=== PATIENT | male | born 1985 | race Caucasian/White ===

== ENCOUNTER 2018-04-14 12:18 | Emergency (ER) | payer MEDICAID, SELFPAY ==
[2018-04-14 12:36] VITALS: BP 152/97; PULSE 82; RESP 16; TEMP 36.7; O2SAT 96
--- NOTE | 2018-04-14 14:10 | W.ED.GENAD ---
Discharge Plan Disposition Patient Disposition: HOME Condition: Fair Discharge Details Chief Complaint: EyeProblem Clinical Impression: Acute allergic conjunctivitis Primary Care Provider: Kenia Tyler ED Provider: Rosina Vidal Home Meds and New Rx's Prescriptions: Continue losartan [Cozaar] 25 MG tablet 50 mg PO DAILY RF: 0 propranolol 20 MG tablet 40 mg PO BID RF: 0 melatonin-pyridoxine HCl (B6) 1 EACH tablet 1 ea PO DIRECTED RF: 0 clobetasol-emollient 15 GM cream 15 gm Topical DIRECTED RF: 0 ammonium lactate (bulk) 1 ML solution 1 ml Miscellaneous DIRECTED RF: 0 Ketoconazole 15 GM CREAM..G. 15 gm Topical PRN RF: 0 cyclobenzaprine 10 MG tablet 10 mg PO hs prn Qty: 90 RF: 0 methadone 10 MG/5 ML solution 55 mg PO DAILY RF: 0 Discharge Instructions Instructions: Conjunctivitis (ED) Additional Instructions: Encourage hydration. Please continue eyedrops as needed for symptomatic management. Please take antihistamine such as Jami or Claritin daily to help with symptomatic relief. Please follow-up with primary care in 1 week if symptoms have not improved Referrals: Kenia Tyler [Primary Care Provider] - ([phone]) Discharge Data Discharge Date/Time-TO BE ENTERED AT DEPARTURE: 04/14/18 14:39 Medical Decision Making MDM Narrative Medical decision making narrative: Patient presents today, covered by significant other, with chief complaint of left eye irritation. Noted the eye to be itchy and erythematous since yesterday. On exam, patient is looking straight ahead I am not able to appreciate any injection. However, when he rotates and looks to the right, I am able to see some mild injection of the lateral aspect. He is tearing. I do not see any discharge. Patient reports that he has noted discharge with crusting. The itching and the appearance of the eye appear more consistent with allergic conjunctivitis rather than bacterial. I advised that antibiotics will not help with treatment for this. He has been using eyedrops to help with symptomatic management. I advised he may continue this. We also discussed the use of an antihistamine. We discussed new/worsening symptoms when to seek care urgently once again. Advised that he follow-up primary care in 1 week if symptoms are not improving. All his questions and concerns were addressed and he is in agreement with this plan Secondary to the number of patients in the emergency department at this time, there was delay in the patient receiving his discharge instructions. He left prior to paperwork was given. However, we had discussed treatment plans verbally. He was alert, appropriate and seems to have mental capacity to decide to leave. We will mail him his paperwork with instructions. HPI - General Adult General Mode of arrival: ambulatory. Date/Time Provider Initiated Documentation: 04/14/18 13:26. Limitations to Documentation: no limitations. Information obtained by: patient. HPI Narrative: Patient presents today, committed by significant other, with chief complaint of left eye irritation since yesterday. He reports that he noted to left eye to be slightly injected. States that he has had discharge from the eye which is primarily been clear. No visual changes. No pain in the eye. This has been quite itchy. She has been rubbing the eye frequently. Does not wear contacts or corrective lenses. Related Data Home Medications Medication Instructions Recorded Confirmed methadone 55 mg PO DAILY 03/17/13 04/14/18 losartan [Cozaar] 50 mg PO DAILY tab-cap 12/31/14 04/14/18 melatonin-pyridoxine HCl (B6) 1 ea PO DIRECTED 12/31/14 04/14/18 propranolol 40 mg PO BID tab-cap 12/31/14 04/14/18 Ketoconazole 15 gm TOPICAL PRN 07/30/17 04/14/18 ammonium lactate (bulk) 1 ml MISCELLANEOUS DIRECTED 07/30/17 04/14/18 clobetasol-emollient 15 gm TOPICAL DIRECTED 07/30/17 04/14/18 Previous Rx's Medication Instructions Recorded cyclobenzaprine 10 mg PO hs prn #90 tab-cap 10/05/17 Allergies Allergy/AdvReac Type Severity Reaction Status Date / Time buprenorphine HCl Allergy Intermediate vomiting Verified 04/14/18 12:39 [From Suboxone] hives diarrhea hallucination naloxone HCl [From Suboxone] Allergy Intermediate vomiting Verified 04/14/18 12:39 hives diarrhea hallucination shellfish derived Allergy Swelling/Ed Verified 04/14/18 12:39 miguel zolmitriptan [From Zomig] AdvReac Severe Severe Verified 04/14/18 12:39 headache Sulfa (Sulfonamide AdvReac Intermediate Nausea Verified 04/14/18 12:39 Antibiotics) General Stated Complaint: EyeProblem MASOOD: 4 Review of Systems Constitutional Reports as per HPI and Denies headache(s) Eyes Patient Reports as per HPI ENT Denies headache(s), Denies nasal congestion and Denies nasal discharge Respiratory Denies chest congestion and Denies cough Integumentary/Breasts Reports as per HPI Neurologic Denies headache(s) PFSH Family History Grandmother No problems noted. Other Crohn's colitis Medical History Hypertension Migraine Obesity, Class III, BMI 40-49.9 (morbid obesity) recurrent gi bleed Social History Smoking/Tobacco Use Status: Former Tobacco Use Surgical History Colonoscopy - MAC Exam Const General: cooperative, healthy appearing, comfortable, no acute distress, well developed and well groomed Nutritional Appearance: obese Orientation: alert and awake [facility] Head: normal to inspection and normocephalic Ears: hearing grossly normal bilaterally and external ears normal General nose exam: external nose normal Mouth: oral mucosae normal, oropharynx normal and moist mucous membranes Eyes General: appearance normal, both eyes and all related structures Eyelids: eyelids normal Conjunctivae: conjunctival abnormality left conjunctival injection Pupils: PERRL EOM: EOM intact bilaterally Resp Effort & Inspection: normal respiratory effort, able to speak in complete sentences and no respiratory distress Skin General skin exam: no rashes or lesions noted Neuro General: alert and awake Cranial Nerves: CN's II-XI intact bilaterally Cognition: normal cognition Speech: speech normal Gait: normal gait Psych Appearance: grossly normal and well kempt Mental Status: mental status grossly normal Speech and Movement: speech and movement normal Mood: congruent mood Affect: normal affect Course Vital Signs Temperature 36.7 C 04/14/18 12:36 Pulse 82 04/14/18 12:36 Respiratory Rate 16 04/14/18 12:36 Blood Pressure 152/97 H 04/14/18 12:36 Pulse Oximetry 96 04/14/18 12:36 Temperature 36.7 C 04/14/18 12:36 Pulse 82 04/14/18 12:36 Respiratory Rate 16 04/14/18 12:36 Blood Pressure 152/97 H 04/14/18 12:36 Pulse Oximetry 96 04/14/18 12:36
--- NOTE | 2018-04-16 09:55 | ED.GENADUL_ITS ---
Discharge Plan Disposition Patient Disposition: HOME Condition: Fair Discharge Details Chief Complaint: EyeProblem Clinical Impression: Acute allergic conjunctivitis Primary Care Provider: Kenia Tyler ED Provider: Rosina Vidal Home Meds and New Rx's Prescriptions: Continue losartan [Cozaar] 25 MG tablet 50 mg PO DAILY RF: 0 propranolol 20 MG tablet 40 mg PO BID RF: 0 melatonin-pyridoxine HCl (B6) 1 EACH tablet 1 ea PO DIRECTED RF: 0 clobetasol-emollient 15 GM cream 15 gm Topical DIRECTED RF: 0 ammonium lactate (bulk) 1 ML solution 1 ml Miscellaneous DIRECTED RF: 0 Ketoconazole 15 GM CREAM..G. 15 gm Topical PRN RF: 0 cyclobenzaprine 10 MG tablet 10 mg PO hs prn Qty: 90 RF: 0 methadone 10 MG/5 ML solution 55 mg PO DAILY RF: 0 Discharge Instructions Instructions: Conjunctivitis (ED) Additional Instructions: Encourage hydration. Please continue eyedrops as needed for symptomatic management. Please take antihistamine such as Jami or Claritin daily to help with symptomatic relief. Please follow-up with primary care in 1 week if symptoms have not improved Referrals: Kenia Tyler [Primary Care Provider] - ([phone]) Discharge Data Discharge Date/Time-TO BE ENTERED AT DEPARTURE: 04/14/18 14:39 Medical Decision Making MDM Narrative Medical decision making narrative: Patient presents today, covered by significant other, with chief complaint of left eye irritation. Noted the eye to be itchy and erythematous since yesterday. On exam, patient is looking straight ahead I am not able to appreciate any injection. However, when he rotates and looks to the right, I am able to see some mild injection of the lateral aspect. He is tearing. I do not see any discharge. Patient reports that he has noted discharge with crusting. The itching and the appearance of the eye appear more consistent with allergic conjunctivitis rather than bacterial. I advised that antibiotics will not help with treatment for this. He has been using eyedrops to help with symptomatic management. I advised he may continue this. We also discussed the use of an antihistamine. We discussed new/worsening symptoms when to seek care urgently once again. Advised that he follow-up primary care in 1 week if symptoms are not improving. All his questions and concerns were addressed and he is in agreement with this plan Secondary to the number of patients in the emergency department at this time, there was delay in the patient receiving his discharge instructions. He left prior to paperwork was given. However, we had discussed treatment plans verbally. He was alert, appropriate and seems to have mental capacity to decide to leave. We will mail him his paperwork with instructions. HPI - General Adult General Mode of arrival: ambulatory . Date/Time Provider Initiated Documentation: 04/14/18 13:26 . Limitations to Documentation: no limitations . Information obtained by: patient . HPI Narrative: Patient presents today, committed by significant other, with chief complaint of left eye irritation since yesterday. He reports that he noted to left eye to be slightly injected. States that he has had discharge from the eye which is primarily been clear. No visual changes. No pain in the eye. This has been quite itchy. She has been rubbing the eye frequently. Does not wear contacts or corrective lenses. Related Data Home Medications Medication Instructions Recorded Confirmed methadone 55 mg PO DAILY 03/17/13 04/14/18 losartan [Cozaar] 50 mg PO DAILY tab-cap 12/31/14 04/14/18 melatonin-pyridoxine HCl (B6) 1 ea PO DIRECTED 12/31/14 04/14/18 propranolol 40 mg PO BID tab-cap 12/31/14 04/14/18 Ketoconazole 15 gm TOPICAL PRN 07/30/17 04/14/18 ammonium lactate (bulk) 1 ml MISCELLANEOUS DIRECTED 07/30/17 04/14/18 clobetasol-emollient 15 gm TOPICAL DIRECTED 07/30/17 04/14/18 Previous Rx's Medication Instructions Recorded cyclobenzaprine 10 mg PO hs prn #90 tab-cap 10/05/17 Allergies Allergy/AdvReac Type Severity Reaction Status Date / Time buprenorphine HCl Allergy Intermediate vomiting Verified 04/14/18 12:39 [From Suboxone] hives diarrhea hallucination naloxone HCl [From Suboxone] Allergy Intermediate vomiting Verified 04/14/18 12: 39 hives diarrhea hallucination shellfish derived Allergy Swelling/Ed Verified 04/14/18 12:39 miguel zolmitriptan [From Zomig] AdvReac Severe Severe Verified 04/14/18 12:39 headache Sulfa (Sulfonamide AdvReac Intermediate Nausea Verified 04/14/18 12:39 Antibiotics) General Stated Complaint: EyeProblem MASOOD: 4 Review of Systems Constitutional Reports as per HPI and Denies headache(s) Eyes Patient Reports as per HPI ENT Denies headache(s), Denies nasal congestion and Denies nasal discharge Respiratory Denies chest congestion and Denies cough Integumentary/Breasts Reports as per HPI Neurologic Denies headache(s) PFSH Family History Grandmother No problems noted. Other Crohn's colitis Medical History Hypertension Migraine Obesity, Class III, BMI 40-49.9 (morbid obesity) recurrent gi bleed Social History Smoking/Tobacco Use Status: Former Tobacco Use Surgical History Colonoscopy - MAC Exam Const General: cooperative, healthy appearing, comfortable, no acute distress, well developed and well groomed Nutritional Appearance: obese Orientation: alert and awake [facility] Head: normal to inspection and normocephalic Ears: hearing grossly normal bilaterally and external ears normal General nose exam: external nose normal Mouth: oral mucosae normal, oropharynx normal and moist mucous membranes Eyes General: appearance normal, both eyes and all related structures Eyelids: eyelids normal Conjunctivae: conjunctival abnormality left conjunctival injection Pupils: PERRL EOM: EOM intact bilaterally Resp Effort & Inspection: normal respiratory effort, able to speak in complete sentences and no respiratory distress Skin General skin exam: no rashes or lesions noted Neuro General: alert and awake Cranial Nerves: CN's II-XI intact bilaterally Cognition: normal cognition Speech: speech normal Gait: normal gait Psych Appearance: grossly normal and well kempt Mental Status: mental status grossly normal Speech and Movement: speech and movement normal Mood: congruent mood Affect: normal affect Course Vital Signs Temperature 36.7 C 04/14/18 12:36 Pulse 82 04/14/18 12:36 Respiratory Rate 16 04/14/18 12:36 Blood Pressure 152/97 H 04/14/18 12:36 Pulse Oximetry 96 04/14/18 12:36 Temperature 36.7 C 04/14/18 12:36 Pulse 82 04/14/18 12:36 Respiratory Rate 16 04/14/18 12:36 Blood Pressure 152/97 H 04/14/18 12:36 Pulse Oximetry 96 04/14/18 12:36
== END 2018-04-14 14:39 | disposition home or self-care (01) ==
PROVIDERS: Emergency Provider Physician Assistant; PCP Nurse Practitioner Family
DX: H10.12 Acute atopic conjunctivitis, left eye (principal); I10 Essential (primary) hypertension
CPT/HCPCS: 99282

== ENCOUNTER 2019-08-26 11:39 | Observation (INO) | payer BC, SELFPAY ==
--- NOTE | 2019-08-26 | DI.RAD_ITS ---
EXAM: XR LUMBAR SPINE COMPLETE INDICATION: pain, injury. COMPARISON: CHEST 2 VIEWS PA,LAT from 07/04/2012 CHEST 2 VIEWS PA,LAT from 03/17/2013 TECHNIQUE: 2D digital imaging was performed. FINDINGS: No fracture, spondylolysis or spondylolisthesis is seen. There is a mild scoliosis. Degenerative ch anges are noted greatest in the lower thoracic region. There is partial lumbarization S1. IMPRESSION: Degenerative changes and mild scoliosis. No acute abnormality.
--- NOTE | 2019-08-26 | DI.RAD_ITS ---
EXAM: XR HIP LT COMPLETE AP PELVIS INDICATION: pain, fall. COMPARISON: No exams were available for comparison TECHNIQUE: 2D digital imaging was performed. FINDINGS: No fracture or dislocation is seen. AC joints and pubic symphysis appear intact. There is spurring from both acetabula. IMPRESSION: Mild degenerative changes. No acute abnormality.
--- NOTE | 2019-08-26 | DI.RAD_ITS ---
EXAM: XR FOOT RT COMPLETE INDICATION: pain, fall. COMPARISON: No exams were available for comparison TECHNIQUE: 2D digital imaging was performed. FINDINGS: There is a fracture through the 5th metatarsal head which shows mild displacement. No additional fra ctures are seen. There are heel spurs. IMPRESSION: Mildly displaced fracture through the 5th metatarsal head.
--- NOTE | 2019-08-26 | DI.RAD_ITS ---
EXAM: XR ANKLE RT COMPLETE INDICATION: pain, fall COMPARISON: No exams were available for comparison TECHNIQUE: 2D digital imaging was performed. FINDINGS: No fracture or ankle mortise widening is seen. Heel spurs are incidentally noted. IMPRESSION: No acute abnormality.
[2019-08-26 11:46] VITALS: BP 138/76; PULSE 96; TEMP 36.7; O2SAT 97
--- NOTE | 2019-08-26 12:23 | ED.GENADUL_ITS ---
Discharge Plan Disposition Patient Disposition: HOME Condition: Stable Discharge Details Chief Complaint: Nk/Back Pain Clinical Impression: Foot fracture, Back pain, Fall Admit Date/Time: 08/26/19 16:05 Admit Provider: Servando Decker Attending Provider: Servando Decker Primary Care Provider: Kenia Tyler ED Provider: Rossana Moyer Discharge Data Discharge Date/Time-TO BE ENTERED AT DEPARTURE: 08/26/19 16:56 Medical Decision Making 34-year-old obese patient presents for complaints of back pain. Patient reports originally noted onset of back pain August 09 after moving, had increase in pain when lifting his leg to move his cat. Patient reports moderate back pain with radiation into the left leg described as a burning pain which is constant. Patient reports he did follow-up with PCP, had reevaluation 4 days later was prescribed muscle relaxant which has been on relieving of his discomfort but somewhat relieving of spasm. Patient reports now bilateral back pain with radiation to bilateral lower extremities. No associated numbness, tingling or weakness. Patient left the house today to follow-up with PCP and went on his top step of 5 he felt his left leg which was bearing weight give out. Denies any pain associated and reports slid down stairs. Patient did feel a pop and reported injury in his right ankle. On exam patient does have notable midline tenderness to the lower spine. Patient does have left hip pain with palpation however range of motion of the left hip is preserved. Straight leg raise intact bilaterally. DTRs are intact. Nothing to indicate a neurosurgical emergency at this time or cauda equina. Patient does have right ankle and foot pain after his fall today. Plan to obtain x-rays of lower back, left hip, right ankle and foot as he has had no imaging thus far. Will provide injection of Dilaudid for pain relief. Patient is on 20 mg of methadone daily. Patient's x-rays reveal no acute fractures of hip or ankle. Lumbar spine reveals mild scoliosis and degenerative changes. No obvious acute fracture. Right foot does reveal a metatarsal fracture through the head of the metatarsal with mild displacement. Patient reports moderate relief of pain with injection of Dilaudid. Patient reports pain is approximately 3 out of 10 at this time. Given patient significant improvement with pain management he is willing to trial ambulation. Recommended crutches and fracture boot. Patient very clearly failed trials of ambulation. Patient unable to tolerate boot and unable to ambulate due to pain in his back. Discussed alternative splinting means and retrial of ambulation. Patient again failed trial of ambulation. Discussed admission for intractable back pain. Patient does feel admission is required at this time as he does not feel he will be able to manage at home. Spoke with hospitalist Dr. Decker, will accept patient's admission. Patient agrees with plan of care HPI General Date/Time Provider Initiated Documentation: 08/26/19 12:20 . HPI Narrative: This is a 34-year-old patient on chronic pain medication specifically methadone who presents for a back complaint. Patient reports he was moving on August 09 felt mild back pain after moving furniture and boxes. Patient reports he was letting his cat out lifted his leg to encourage his cat to leave the house and felt sharp burning pain through his left leg. Patient reports persistent pain since that time. Patient reports he did see his PCP 4 days after onset of pain was prescribed muscle relaxant and has been using a course of Aleve and Tylenol. Patient reports after initial onset of pain in the left leg he has noted onset of pain in the right leg. Describes both as pain through the buttocks radiating anteriorly then behind the knees bilaterally with radiation down the calf. No foot involvement. Patient denies obvious weakness of the legs. Patient denies any incontinence of urine. Patient reports no significant relief of pain. Patient reports today he was going back to PCP office for reevaluation and left leg gave out while he was on the top step of 5 stairs and ultimately slid down the stairs. Patient denies striking his back when falling but reports more of a slow slide down the stairs. Patient reports he did feel a pop in his right ankle and does report mild ankle and foot pain. Patient again denies any new red flags. Patient reports no significant pain relief with methadone. He has been on methadone chronically. Denies striking head or neck. No other concerns or complaints. Related Data Home Medications Medication Instructions Recorded Confirmed methadone 40 mg PO DAILY 03/17/13 08/26/19 losartan [Cozaar] 50 mg PO DAILY tab-cap 12/31/14 08/26/19 Ketoconazole 15 gm TOPICAL PRN 07/30/17 08/26/19 ammonium lactate (bulk) 1 ml MISCELLANEOUS DIRECTED 07/30/17 08/26/19 clobetasol-emollient 15 gm TOPICAL DIRECTED 07/30/17 08/26/19 cyclobenzaprine 10 mg PO hs prn #90 tab-cap 10/05/17 08/26/19 citalopram 20 mg PO DAILY 08/26/19 08/26/19 cyclobenzaprine 10 mg PO TID PRN #10 tab 08/26/19 metformin 500 mg PO HS 08/26/19 08/26/19 Previous Rx's Medication Instructions Recorded cyclobenzaprine 10 mg PO hs prn #90 tab-cap 10/05/17 cyclobenzaprine 10 mg PO TID PRN #10 tab 08/26/19 Allergies Allergy/AdvReac Type Severity Reaction Status Date / Time buprenorphine HCl Allergy Intermediate vomiting Verified 08/26/19 11:51 [From Suboxone] hives diarrhea hallucination naloxone HCl [From Suboxone] Allergy Intermediate vomiting Verified 08/26/19 11:51 hives diarrhea hallucination shellfish derived Allergy Swelling/Ed Verified 08/26/19 11:51 miguel zolmitriptan [From Zomig] AdvReac Severe Severe Verified 08/26/19 11:51 headache Sulfa (Sulfonamide AdvReac Intermediate Nausea Verified 08/26/19 11:51 Antibiotics) General Stated Complaint: Nk/Back Pain MASOOD: 3 Review of Systems All systems reviewed & are unremarkable except as noted in HPI and below Constitutional Constitutional: Denies headache(s) Eyes Eyes: Denies blurry vision and Denies diplopia ENT Ears, Nose, Mouth, and Throat: Denies headache(s) and Denies neck pain Cardiovascular Cardiovascular: Denies chest pain Respiratory Respiratory: Denies cough Gastrointestinal Gastrointestinal: Denies abdominal pain Musculoskeletal Musculoskeletal: Reports back pain, Denies neck pain, Denies numbness, Reports radiating pain into limb and Denies tingling Neurologic Neurologic: Denies headache(s), Denies numbness and Denies tingling [facility] Medical History (Updated 08/26/19 @ 17:07 by Servando Decker MD) Diabetes type 2, controlled (Acute) Erectile dysfunction (Acute) Hypertension Migraine Obesity, Class III, BMI 40-49.9 (morbid obesity) Obstructive sleep apnea (Chronic) Opiate abuse, episodic (Acute) Remote history, on methadone x10 years recurrent gi bleed Tobacco abuse (Acute) Surgical History Colonoscopy - MAC 2010- normal Family History Grandmother No problems noted. Other Crohn's colitis Social History Smoking/Tobacco Use Status: Former Tobacco Use Drug use: Current Sobriety Do you feel safe in your relationship?: Yes Exam Narrative Exam Narrative: CONST: Healthy appearing patient, in no acute distress. Well hydrated. Alert and oriented. HENMT: Head nomocephalic, normal to inspection. Atraumatic. Hearing grossly normal. EYES: General normal appearance. Alignment normal. Eyelids normal. Conjunctiva normal. NECK: Normal visual inspection. FROM. Trachea midline. No Midline tenderness. CHEST: Normal insepection of the chest. No pain with palpation MUSCULOSKELETAL: Position of comfort prone on the bed. Straight leg raise intact of bilateral lower extremities. Pain with straight leg raise at 45 degrees on the left leg. DTRs are intact and equal bilaterally at patella. No foot drop. Dorsiflexion and plantar flexion intact. Strength maintained. Sensation intact bilaterally and symmetrical. Left hip pain with palpation. Internal and external rotation intact. Flexion of hip intact. Patient does have mild palpable tenderness of the right ankle posteriorly. No obvious Achilles pain with palpation. Mild lateral malleolus tenderness as well as mild dorsal foot pain with palpation. Normal upper extremity exam. Back: No cervical tenderness with palpation or thoracic pain with palpation. Lumbar pain with palpation over the midline as well as at the paraspinal left lower back. Pain with palpation over the sciatic notch noted bilaterally. NEURO: Alert and awake. Speech clear. PSYCH: Normal affect. Cooperative. Course Vital Signs Vital signs: Vital Signs Temperature 36.7 C 08/26/19 11:46 Pulse 96 H 08/26/19 11:46 Blood Pressure 138/76 08/26/19 11:46 Pulse Oximetry 97 08/26/19 11:46 Temperature 36.7 C 08/26/19 11:46 Temperature Source Temporal Artery Scan 08/26/19 11:46 Pulse 96 H 08/26/19 11:46 Respiratory Effort 08/26/19 12:19 Blood Pressure 138/76 08/26/19 11:46 Blood Pressure Position Sitting 08/26/19 11:46 Pulse Oximetry 97 08/26/19 11:46 Oxygen Delivery Method Room Air 08/26/19 11:46 Oxygen Flow Rate 0 08/26/19 11:46 Pain Level 4 08/26/19 11:46
[2019-08-26] MEDS: HYDROmorphone 2 MG/ML VIAL IM (12:38)
[2019-08-26] MEDS: methylPREDNISolone SUCC 125 MG VIAL IVP (16:11)
[2019-08-26] MEDS: Normal Saline Flush 10 ML SYR IVP ×2 (16:12→20:47)
[2019-08-26 16:24] VITALS: BP 153/107; PULSE 84; RESP 30; O2SAT 94
[2019-08-26 16:50] VITALS: BP 138/86; PULSE 77; RESP 18; TEMP 36.6; O2SAT 95
[2019-08-26 17:00] VITALS: BP 138/86; PULSE 77; RESP 18; TEMP 36.6; O2SAT 95
--- NOTE | 2019-08-26 17:00 | W.PM.HP.N ---
Date of service: 08/26/19 Time of Service: 17:01 Assessment and Plan Assessment and plan (1) Foot fracture: Status: Acute Assessment and plan: He has a mildly displaced fracture of the fifth metatarsal head on the right. The likely treatment will be immobilization. He is already fitted for an immobilization boot. Will discuss with orthopedics whether any further consultation is required. (2) Fall: Status: Acute Assessment and plan: He suffered a fall on the stairs which has worsened his lower back pain. There does not appear to be any acute new injury. I think most of his weakness is pain and avoidance of pain. We will ask physical therapy to evaluate. Meanwhile heat therapy, corticosteroids, muscle relaxants. (3) Diabetes type 2, controlled: Status: Acute Assessment and plan: Will check fingerstick blood sugars and will provide correction aspart as needed. Continue Metformin. Check hemoglobin A1c. (4) Obstructive sleep apnea: Status: Chronic Assessment and plan: He is already on CPAP. Will authorize use of his home device. (5) Back pain: Status: Acute Assessment and plan: Chronic lower back pain. He is on chronic methadone therapy. Will supplement with Dilaudid for breakthrough pain. We will try to avoid opiates as much as possible. History of Present Illness History of Present Illness Chief Complaint: Right foot fracture/intractable back pain Narrative: This is a 34-year-old male that has had trouble with chronic low back pain. He describes having weakness in his legs and as he approached a steroid today he slipped and slid down 6 stairs. His right foot got caught underneath him and he has had significant right foot pain. His back pain is much more severe. He is weak and it is causing him too much pain to stand at this point. He originally injured his back on 08/09/2019 when he was scooting his cat with his leg and his pain suddenly got worse in his back. He saw his PCP and was prescribed Flexeril, Tylenol, ibuprofen. He is on chronic methadone times the past 10 years because of prescription and illicit opiate abuse. He has been weaning himself off of the methadone. In the emergency room he had images of his LS spine, hip, right ankle, right foot. He has a mildly displaced fracture of the fifth metatarsal head on the right foot. He has an equalizer walking boot prescribed for the right foot fracture. He is being admitted for pain control and physical therapy. [facility] Medical History (Updated 08/26/19 @ 17:07 by Servando Decker MD) Diabetes type 2, controlled (Acute) Erectile dysfunction (Acute) Hypertension Migraine Obesity, Class III, BMI 40-49.9 (morbid obesity) Obstructive sleep apnea (Chronic) Opiate abuse, episodic (Acute) Remote history, on methadone x10 years recurrent gi bleed Tobacco abuse (Acute) Surgical History Colonoscopy - [facility] 2010- normal Family History Grandmother No problems noted. Other Crohn's colitis Social History Smoking/Tobacco Use Status: Former Tobacco Use Drug use: Current Sobriety Do you feel safe in your relationship?: Yes Meds Home Medications and Allergies Home Medications Medication Instructions Recorded Confirmed Type methadone 40 mg PO DAILY 03/17/13 08/26/19 History losartan [Cozaar] 50 mg PO DAILY tab-cap 12/31/14 08/26/19 History Ketoconazole 15 gm TOPICAL PRN 07/30/17 08/26/19 History ammonium lactate (bulk) 1 ml MISCELLANEOUS DIRECTED 07/30/17 08/26/19 History clobetasol-emollient 15 gm TOPICAL DIRECTED 07/30/17 08/26/19 History cyclobenzaprine 10 mg PO hs prn #90 tab-cap 10/05/17 08/26/19 Rx citalopram 20 mg PO DAILY 08/26/19 08/26/19 History cyclobenzaprine 10 mg PO TID PRN #10 tab 08/26/19 Rx metformin 500 mg PO HS 08/26/19 08/26/19 History Allergies Allergy/AdvReac Type Severity Reaction Status Date / Time buprenorphine HCl Allergy Intermediate vomiting Verified 08/26/19 11:51 [From Suboxone] hives diarrhea hallucination naloxone HCl [From Suboxone] Allergy Intermediate vomiting Verified 08/26/19 11:51 hives diarrhea hallucination shellfish derived Allergy Swelling/Ed Verified 08/26/19 11:51 miguel zolmitriptan [From Zomig] AdvReac Severe Severe Verified 08/26/19 11:51 headache Sulfa (Sulfonamide AdvReac Intermediate Nausea Verified 08/26/19 11:51 Antibiotics) Exam Narrative Exam Narrative: Extremely large man with morbid obesity, BMI 50. He is lying prone on the stretcher though he is able to roll onto his left side for some of the exam. Exam of his lumbar spine shows no outward sign of deformity no swelling no bruising. Palpation does not reveal any significant evidence of tenderness. Sensation of his lower extremities appears to be fully intact as does muscle use of the lower extremities. Exam of the right foot showed no bruising or swelling. He has tenderness over the dorsum of the foot over that fifth metatarsal head. He otherwise has full use of the foot to dorsally and plantar flexion. His lungs are completely clear, heart sounds are regular and strong. Abdomen is soft and nontender. Results Last Vital Signs Temp 36.6 C 08/26/19 16:50 Pulse 77 08/26/19 16:50 Resp 18 08/26/19 16:50 BP 138/86 08/26/19 16:50 Pulse Ox 95 08/26/19 16:50
[2019-08-26 17:30] VITALS: BP 127/82; PULSE 85; RESP 18; TEMP 36.9; O2SAT 94
[2019-08-26 17:39] VITALS: BP 127/82; PULSE 85; RESP 18; TEMP 36.9; O2SAT 94
[2019-08-26] MEDS: Acetaminophen 325 MG TAB PO ×2 (18:38→23:10)
[2019-08-26] MEDS: Cyclobenzaprine 10 MG TAB PO (19:30)
[2019-08-26] MEDS: Propranolol 40 MG TAB PO (19:30)
[2019-08-26] MEDS: HYDROmorphone 2 MG/ML VIAL IVP (20:47)
[2019-08-26] MEDS: metFORMIN 500 MG TAB PO (21:53)
[2019-08-27 00:01] VITALS: BP 127/64; PULSE 101; RESP 20; TEMP 36.6; O2SAT 90
[2019-08-27] MEDS: HYDROmorphone 2 MG/ML VIAL IVP ×5 (02:17→20:41)
[2019-08-27] MEDS: Acetaminophen 325 MG TAB PO ×2 (06:42→11:17)
[2019-08-27 07:27] LABS: HCT 49.9 % (40.0-50.0); HGB 16.7 g/dL (13.5-17.5); Mean Corp. HGB Concentration 33.5 g/dL (32.0-36.0); Mean Corpuscular Hemoglobin 28.9 pg (27.0-33.0); Mean Corpuscular Volume 86.3 fL (80-95); Mean Platelet Volume 10.3 fL (8.0-11.0); Platelet Count 422 x1000/uL (130-400); RBC 5.78 m/cumm (4.50-6.00); RBC Distribution Width 14.3 % (11.8-14.1); White Blood Cell Count 16.89 k/cumm (4.4-10.8)
[2019-08-27 07:41] LABS: Anion Gap 10.7 mmol/L (3-11); BUN 13 mg/dL (7-18); CO2 27.3 mmol/L (21.0-32.0); CREATININE 0.86 mg/dL (0.70-1.30); Calcium 9.2 mg/dL (8.5-10.1); Chloride 103 mmol/L (98-107); Glucose 128 mg/dL (74-106); Potassium 3.8 mmol/L (3.5-5.1); Sodium 141 mmol/L (136-145)
[2019-08-27 07:43] LABS: Hemoglobin A1C 5.9 % (3.8-5.6)
[2019-08-27 07:55] VITALS: BP 129/70; PULSE 80; RESP 19; TEMP 36.7; O2SAT 98
[2019-08-27] MEDS: Propranolol 40 MG TAB PO ×2 (07:57→19:45)
[2019-08-27] MEDS: Losartan 25 MG TAB 50 MG PO (07:57)
[2019-08-27] MEDS: predniSONE 20 MG TAB 60 MG PO (07:57)
[2019-08-27] MEDS: Citalopram 20 MG TAB PO (07:57)
[2019-08-27] MEDS: Methadone 10 MG TAB 40 MG PO (07:58)
--- NOTE | 2019-08-27 08:08 | INITIAL_ITS ---
- If Service Date Differs Date of service: 08/27/19 Time of Service: 08:08 Care Management Initial Assess REASON FOR HOSPITALIZATION:: Foot fracture PAST MEDICAL HISTORY/PAST SURGICAL HISTORY:: Medical History (Updated 08/26/19 @ 17:07 by Servando Decker MD). Diabetes type 2, controlled (Acute). Erectile dysfunction (Acute). Hypertension. Migraine. Obesity, Class III, BMI 40-49.9 (morbid obesity). Obstructive sleep apnea (Chronic). Opiate abuse, episodic (Acute). Remote history, on methadone x10 years. recurrent gi bleed. Tobacco abuse (Acute). Surgical History . Colonoscopy - [facility]. 2010- normal PREVIOUS FUNCTIONAL STATUS/SOCIAL/FAMILY SUPPORTS:: Keith lives in a handicap accessible apartment in [facility] with his fihaim Herrera. 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 He is independent with all activities and care however he has been limited by back pain and lower extremity weakness recently. CURRENT FUNCTIONAL STATUS:: Keith was lying in bed when CM met with him. He stated that he was in pain which he rated a 6/10. He stated he had been medicated about 2 hours earlier. Keith expressed concern over his job security. He stated that he has missed a lot of work due to back pain and that his employer is likely to terminate his employment because of it. CM provided Keith with a Patient Financial Assistance packet. ADVANCE DIRECTIVES:: None on file. provided with forms at his request Has patient been provided with information about the portal?: Yes Did the patient sign up for the portal?: Yes CODE STATUS:: Full Code INSURANCE COVERAGE / FINANCIAL ISSUES:: [employer] [facility] CURRENT HOME/COMMUNITY SERVICES/EQUIPMENT:: none PRIMARY CARE PHYSICIAN:: Kenia Tyler POTENTIAL DISCHARGE NEEDS:: Follow up with PCP and discharge plan of care PATIENT/FAMILY EDUCATION NEEDS:: Discharge plan, limitations, follow up plan, Ask Me [employer] TRANSPORTATION:: via private vehicle with family PLAN:: Keith will be discharged home with no new services. He will follow up with his PCP and discharge plan of care. He is scheduled to begin OP PT next week. CM will continue to support patient, family and discharge planning needs.
--- NOTE | 2019-08-27 09:13 | PT.INIE ---
Date of service: 08/27/19 Time of Service: 09:13 PT Notes Visit Reasons: FOOT FX/ INTRACTABLE BACK PAIN Physical Therapy Inpatient Initial Evaluation Date: 08/27/2019 Referring Doctor: Servando Decker M.D. PT Orders: PT CONSULT: Eval for assistive device Precautions: Fall. Standard. Activity as tolerated. Post-operative shoe on right foot when out of bed. Patient Profile/Admitting Diagnosis: Pt is a 34-year-old male presented to the ER on 08/26/2019 following a fall at home due to back pain and lower extremity weakness. He was diagnosed with a right foot fifth metatarsal head fracture. 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 He lives with his in a handicap accessible apartment with 5 steps to enter. Notes that his can be home to help care for him and father came to visit from [place] to help if needed. Equipment Owned/DME: None Subjective: Pt states that on August 09 he was moving furniture around his apartment with his , when she lost balance and had to catch the furniture from falling. He states that at that time he felt he pulled a muscle, but did not experience significant pain. Later that night he picked up his cat and felt a burning pain in his left leg. He notes that since then he has felt very weak in his left leg and recently has began to experience weakness in his right leg. States that he has been going up and down the stairs with using railings in both hands and fell yesterday while doing this. Outpatient PT evaluation is scheduled on August 31. He notes that he is not experiencing any pain in his foot at this time and it is mainly his back that is bothering him. Concerned he may have disc herniation. Pt is also concerned as he is afraid that he may be losing his job as he has been out of work for so long due to back pain. He reports that being on prone on elbows is the best position of comfort for him. Objective: General Observation: prone on elbows in bed. IV line in LUE, detached from IV pump. Mental Status: alert and oriented x 4 Pain: 1/10 lying prone on elbows. 6/10 sitting on the edge of bed. Vital Signs: NT ROM: Right Upper Extremity: Shoulder Flexion WFL. Shoulder abduction WFL. Elbow flexion WFL. Wrist flexion WFL. Opening and closing of hand WFL. Left Upper Extremity: Shoulder Flexion WFL. Shoulder abduction WFL. Elbow flexion WFL. Wrist flexion WFL. Opening and closing of hand WFL. Right Lower Extremity: Hip flexion WFL. Hip abduction WFL. Knee flexion WFL. Ankle dorsiflexion WFL. Ankle plantarflexion WFL. Left Lower Extremity: Hip flexion WFL. Hip abduction WFL. Knee flexion WFL. Ankle dorsiflexion WFL. Ankle plantarflexion WFL. Trunk: Patient was found on prone on elbows upon arrival of PT and student PT with trunk extension to about 30 degrees from horizontal prone position. Further trunk range assessment was hindered by pain on sitting and movement transitions of sitting<>stand. Patient is able to assume upright trunk position with no radiation of pain to either LE reported. STRENGTH: Right Upper Extremity: Shoulder flexors 5/5 (increased back pain). Shoulder abductors 5/5. Elbow flexors 5/5. Elbow extensors 5/5. 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 Left Upper Extremity: Shoulder flexors 5/5 (increased back pain). Shoulder abductors 5/5. Elbow flexors 5/5. Elbow extensors 5/5. 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 Bilateral lower extremity strength is grossly a 4/5, limited by pain in back and left lower extremity Sensation: Intact as to pain and pressure on bilateral lower extremities. Bed Mobility/Transfers: Rolling supervision Supine to sit supervision Sit to supine supervision Sit to stand supervision Stand to sit supervision Bed to chair supervision Chair to bed supervision Gait: Pt was able to ambulate 80 feet x 2, WBAT with post-operative shoe on right foot, using a bariatric front-wheeled walker. SBA provided by PT and PT student. Decreased gait velocity observed. No report of pain on the right foot throughout. Balance: Static Sitting: Good Dynamic Sitting: Good Static Standing: Fair Dynamic Standing: Fair Special Tests: Mobility Limitations Standardized Measure [facility] AM-PAC 6 clicks Basic Mobility Inpatient Short Form: Raw Score: 21 CMS Score: 29% deficit Palpation: Pt is tender to palpation along the area of the left piriformis and lower gluteus parvin. Unable to assume Informed Consent/Education: Patient instructed in purpose of PT consult and plan of care. Assessment: Pt is a 34-year-old, obese, male that presented to the ER on 08/26/2019 following a fall at home due to back pain and lower extremity weakness. He was diagnosed with a right foot fifth metatarsal head fracture. Pt presents with impairment level findings and functional limitations as listed below. He would benefit from skilled physical therapy at this time for reduction in pain and improved mobility. Patient presents with clinical signs and symptoms consistent with current/admitting diagnoses that have resulted to mobility limitations, gait instability, and generalized weakness as demonstrated by the following impairment level findings: 1. Decreased strength to B LE major muscle groups secondary to pain 2. Impaired standing balance 3. Impaired activity tolerance 4. Spasmodic and tight L piriformis Impairments are contributing to the following functional limitations: 1. Increased dependence with transfers 2. Inability to safely ambulate without assistive device and physical assistance 3. Increase completion time for mobility ADL performance 4. Increased fall risk 5. Inability to negotiate steps alone safely Patient is assessed as a 95198 moderate complexity based on the following: History: Pt is a 34-year-old male presented to the ER on 08/26/2019 following a fall at home due to back pain and lower extremity weakness. He was diagnosed with a right foot fifth metatarsal head fracture. Presents with impairment level findings and functional limitations as listed above. Examination: Demonstrable impairment in strength, balance, and range of motion with underlying impairments and functional limitations as documented above Presentation: Evolving Decision Makin moderate complexity Goals: Goals X1 week 1. Supine-Sit independent 2. Sit-Supine independent 3. Sit-Stand independent 4. Stand-Sit independent 5. Bed-Chair independent 6. Chair-Bed independent 7. Independent gait on level surface with use of least restrictive device for at least 300 feet without report of pain nor dyspnea 8. Independent stair negotiation while holding onto bilateral rails for at least 5 steps without report of pain nor dyspnea 9. Independent with home exercise program 10. Good static and dynamic standing balance/tolerance Plan of Care/Treatment Plan: 1-2x/day, 7 days/week x 1 week. Plan of care has been reviewed with the HAIR BOILER providing the service under Physical Therapy direction. Initiate Physical Therapy intervention for strengthening, bed mobility, transfers, gait, stairs, balance training, use of assistive device. Manual therapy: soft tissue massage and trigger point release along left piriformis x 8 minutes Therapeutic exercise: modified left piriformis stretch in right side-lying position DISCHARGE RECOMMENDATIONS: Discharge to home when medically cleared with recommendation for outpatient physical therapy. Patient will benefit from bariatric front-wheeled walker in [facility] to maximize mobility ADL performance at home. TREATMENT CODE/TIME: 41098 x 45 minutes, 39447 x1 beginning at 9:13 A.M. Thank you very much for this referral. Lexi Mason, SPT Doctor of Physical Therapy Student [facility] Supervision provided by: Penelope Kelly PT, DPT, CLT [facility] [place], [place]
--- NOTE | 2019-08-27 10:27 | W.NUTCONSULT ---
Date of service: 08/27/19 Time of Service: 10:27 Nutritional Consult ASSESSMENT: 34 year old morbidly obese gentleman admitted with foot fracture, lower back pain. Has well controlled diabetes with A1c of 5.9%. Following diabetic diet. DM consult pending. Not at nutritional risk at this time. Time Spent in Nutritional Counseling and Treatment: 0 time spent face to face
[2019-08-27] MEDS: Cyclobenzaprine 10 MG TAB PO ×2 (11:18→20:41)
[2019-08-27] MEDS: Normal Saline Flush 10 ML SYR IVP ×3 (12:14→20:41)
--- NOTE | 2019-08-27 14:30 | PTTR_ITS ---
Date of service: 08/27/19 Time of Service: 14:30 PT Notes Visit Reasons: FOOT FX/ INTRACTABLE BACK PAIN Inpatient Physical Therapy Treatment Note [facility] Date: 08/27/2019 PRECAUTIONS: Standard. Fall. Activity as tolerated. Post-operative shoe on right foot when out of bed. SUBJECTIVE: Per nursing, the pt had received Dilaudid and Flexeril prior to his treatment session. Pt notes that his back feels good lying in bed. He continues to report that he does not have pain in his right foot. Notes that he has a out patient PT appointment on Saturday. OBJECTIVE: PAIN: 0/10 at rest BED MOBILITY/TRANSFERS: Instructed to ?draw in naval? to contract transverse abdominus when transitioning between positions / transfers. Rolling supervision Supine to sit supervision Sit to supine supervision Sit to stand supervision Stand to sit supervision Bed to chair supervision Chair to bed supervision GAIT: Pt was able to ambulate 25 feet + 120 feet + 25 feet, WBAT on R foot, using a front-wheeled walker. Supervision provided by PT and PT student. STAIRS: Pt was able to ascend and descend the 4? step x 3 with bilateral UE support on railings. Supervision provided by PT student and PT. Step-to gait pattern. Attempted a reciprocal gait pattern which increased foot pain. When descending he complained of mild weakness in his L LE. THEREX: Prone on elbows x 2 minutes Prone press up x 10 Prone press up with sag 2 x10 Anterior pelvic tilts x 5 ASSESSMENT: Pt demonstrated significant improvements in his mobility with fewer complaints of low back pain. He was able to tolerate repeated extension in prone lying exercises without increases in pain. With instruction to ?draw in navel?, he was able perform bed mobility and transfers with minimal pain. Pt was able to ambulate a greater distance without complaining increased pain or weakness, however did complain of some weakness in L LE with descending stairs. He would continue to benefit from skilled physical therapy at this time. Patient had good response with Jennifer Extension Exercises as above. PLAN: Continue with established POC. Discharge to home with a front-wheeled walker. OP PT for cotninued low back pain management. TREATMENT CODE/TIME: 76613 x1, 03802 x 1, 30 minutes beginning at 230 Lexi Mason, TIERA Doctor of Physical Therapy Student [employer] Supervision provided by Penelope Kelly PT, DPT, CLT [facility] [place], [place]
[2019-08-27 15:50] VITALS: BP 112/59; PULSE 87; RESP 20; TEMP 36.9; O2SAT 98
--- NOTE | 2019-08-27 16:13 | PGE_ITS ---
Date of Service Date of service: 08/27/19 Time of Service: 16:13 Assessment and Plan Assessment and plan (1) Back pain: Status: Acute Assessment and plan: Intractable back pain. Given his size I am sure the stress of the fall was a dramatic strain on his back. Physical therapy feels like he has a piriformis muscle strain. He is able to physically do what he needs to do except sit on the toilet. We will continue with the muscle relaxants and the corticosteroids. He has Dilaudid for breakthrough pain. There is great concern on both the patient's part and our part of escalating his opioid use. He does not have red flag symptoms that suggest cauda equina syndrome or an acute herniated nucleus pulposus. No indication for MRI at this time. (2) Diabetes type 2, controlled: Status: Acute Assessment and plan: Blood sugars have been under good control. [facility] A1c is 5.9%. (3) Obstructive sleep apnea: Status: Chronic Assessment and plan: Home CPAP (4) Foot fracture: Status: Acute Assessment and plan: Rigid foot brace. Weight-bear as tolerated. I did speak with Dr. Trevino from orthopedics who reviewed his films and felt this was an adequate plan. Subjective Subjective Interval history since last seen: Patient admitted yesterday with intractable back pain and right foot fracture. He worked with physical therapy today and co uld go from supine to standing and was stable in the standing position but had a lot of difficulty with bending and could not tolerate sitting at all. He is mostly concerned that he cannot perform normal bowel function because he cannot tolerate sitting. The right foot fracture while painful is tolerable for him with the supportive brace. He has a friend who recommended he get an MRI. Exam Narrative Exam Narrative: On exam he is examined in the supine position almost flat in bed. He can roll side to side without much apparent difficulty. I was able to do a straight leg raise on the right and left to about 45 to 60 degrees. He gets some of the back pain when lifting the left leg up to about 60 degrees. He has normal sensation of both lower extremities the deep tendon reflexes appear to be normal at the knees and ankles bilaterally. He was observed up walking using the walker. Objective Objective Clinical Data: Abnormal lab results 08/27/19 08/27/19 08/27/19 Range/Units 07:05 07:05 07:05 WBC 16.89 H (4.4-10.8) k/cumm RDW 14.3 H (11.8-14.1) % Plt Count 422 H (130-400) x1000/uL Glucose 128 H (74-106) mg/dL Hemoglobin A1c 5.9 H (3.8-5.6) % Vital Signs Temperature 36.7 C 08/27/19 07:55 Temperature Source Tympanic 08/27/19 07:55 Pulse 80 08/27/19 07:55 Pulse Rhythm Regular 08/27/19 11:18 Respiratory Rate 19 08/27/19 07:55 Respiratory Effort Non-Labored 08/27/19 11:18 Respiratory Depth Normal 08/27/19 11:18 Respiratory Pattern Normal 08/27/19 11:18 Blood Pressure 129/70 08/27/19 07:55 Blood Pressure Position Sitting 08/26/19 11:46 Pulse Oximetry 98 08/27/19 07:55 Oxygen Delivery Method Room Air 08/27/19 07:55 Oxygen Flow Rate 0 08/27/19 07:55 Pain Level 5 08/27/19 12:13 Intake & Output 08/26/19 08/27/19 08/27/19 23:59 11:59 23:59 Intake Total 410 / 410 900 / 1140 240 / 1140 Output Total 300 / 300 Balance 410 / 410 600 / 840 240 / 840 Weight 181.437 kg 192.7 kg Intake: IV Oral 400 / 400 900 / 1140 240 / 1140 Output: Urine 300 / 300 Other: Urine Color Dark Minnie Urine Odor Normal Comment reports voiding w/o difficulty. independent w/urination. Voiding Methods Urinal Laboratory Results WBC 16.89 k/cumm (4.4-10.8) H 08/27/19 07:05 RBC 5.78 m/cumm (4.50-6.00) 08/27/19 07:05 Hgb 16.7 g/dL (13.5-17.5) 08/27/19 07:05 Hct 49.9 % (40.0-50.0) 08/27/19 07:05 MCV 86.3 fL (80-95) 08/27/19 07:05 MCH 28.9 pg (27.0-33.0) 08/27/19 07:05 MCHC 33.5 g/dL (32.0-36.0) 08/27/19 07:05 RDW 14.3 % (11.8-14.1) H 08/27/19 07:05 Plt Count 422 x1000/uL (130-400) H 08/27/19 07:05 MPV 10.3 fL (8.0-11.0) 08/27/19 07:05 Sodium 141 mmol/L (136-145) 08/27/19 07:05 Potassium 3.8 mmol/L (3.5-5.1) 08/27/19 07:05 Chloride 103 mmol/L (98-107) 08/27/19 07:05 Carbon Dioxide 27.3 mmol/L (21.0-32.0) 08/27/19 07:05 Anion Gap 10.7 mmol/L (3-11) 08/27/19 07:05 BUN 13 mg/dL (7-18) 08/27/19 07:05 Creatinine 0.86 mg/dL (0.70-1.30) 08/27/19 07:05 Estimated GFR/1.73 m2 >= 60.00 (mL/min/1.73m2) 08/27/19 07:05 Glucose 128 mg/dL (74-106) H 08/27/19 07:05 Hemoglobin A1c 5.9 % (3.8-5.6) H 08/27/19 07:05 Calcium 9.2 mg/dL (8.5-10.1) 08/27/19 07:05 Objective Narrative Objective Narrative: The EKG showed normal sinus rhythm with normal intervals including QTC equals 413.
--- NOTE | 2019-08-27 17:36 | PHARADMIT ---
Admission Pharmacy Clinical Review Code Status Full Code Current Weight 192.7 kg Renally Cleared and Narrow Therapeutic Index Meds CrCl ~142, meds ok QTc Value / Action Taken QTc 413, methadone - ok BP Control, Fever BP 112/59, afebrile Electrolytes reviewed Na 141, K+ 3.8, Mag - none DVT Prophylaxis none Opiate Usage / Scheduled Bowel Regimen Ordered methadone 20mg daily, yes Plt/SCr for Heparin / Enoxaparin Plt 422, Scr 0.86 INR for Warfarin H/H stable, WBC/Bands H/H 16.7/49.9 Antibiotic appropriateness Cultures and Sensitivities Surgical ABX d/c within 24 hr DM control / Insulin Dosing Aspart per SS; A1C 5.9, BG 128 Heart Failure (Check EF%) (EDGAR's, B-Block, Diuretics) Losartan, propranolol IV to PO Switch Home Meds Reviewed Yes, all ok Home Meds Not Ordered All ordered Comments Hx of opiate abuse, takes 20mg methadone daily verified with [facility] -- caution with escalating opiate usage noted will continue flexeril, steroids, and dilaudid prn btp
[2019-08-27] MEDS: metFORMIN 500 MG TAB PO (21:28)
[2019-08-28] MEDS: Acetaminophen 325 MG TAB PO ×2 (00:44→08:09)
[2019-08-28] MEDS: HYDROmorphone 2 MG/ML VIAL IVP ×3 (00:44→09:52)
[2019-08-28] MEDS: Normal Saline Flush 10 ML SYR IVP ×3 (00:44→09:53)
[2019-08-28 01:04] VITALS: BP 124/77; PULSE 77; RESP 18; TEMP 36.8; O2SAT 94
[2019-08-28 07:34] VITALS: BP 124/65; PULSE 77; RESP 18; TEMP 36.6; O2SAT 95
[2019-08-28] MEDS: Methadone 10 MG TAB 20 MG PO (08:09)
[2019-08-28] MEDS: Propranolol 40 MG TAB PO (08:09)
[2019-08-28] MEDS: Cyclobenzaprine 10 MG TAB PO (08:09)
[2019-08-28] MEDS: Citalopram 20 MG TAB PO (08:09)
[2019-08-28] MEDS: predniSONE 20 MG TAB 60 MG PO (08:10)
[2019-08-28] MEDS: Ketorolac 10 MG TAB PO (12:42)
[2019-08-28] MEDS: oxyCODONE 5 mg/Acetaminophen 325 mg TAB 1 TAB PO (14:30)
--- NOTE | 2019-08-28 14:57 | PT.INTREAT ---
Date of service: 08/28/19 Time of Service: 14:57 PT Notes Visit Reasons: FOOT FX/ INTRACTABLE BACK PAIN 08/28/19 SUBJECTIVE: Pt stating that he feels best when he is lying on his stomach. No pain in the foot at this point. Biggest issues his pain in the left sided low back radiating down the anterior left thigh. He has an outpatient follow up for his back on Saturday. In the afternoon PT session pt reporting improvement in comfort through his back. OBJECTIVE: Agreeable to PT treatment x 2 today. TRANSFERS Supine to sit: S Sit to supine: S Sit to stand: S Stand to sit: S GAIT Device: Bariatric FWW Weight bearing: AT R Assist: S Distance: 100'+120' in the AM and the PM Deviation: Slow ashish in the AM, gait normalized in the PM. Post op shoe donned on the R Stair: Up and down 3-4 steps, bilateral rails, step to pattern, S only. This is performed in the AM and PM THEREX: Review Lashell extension exercises including prone press ups. Encourage TrA and glut isometrics with transfers. ASSESSMENT: Pt demonstrates improvement in his mobility this afternoon with normalized supine to sit transfers and increase in gait speed. He continues to favor extension through the back which immediately gives him relief down the left leg. PLAN: Pt to be discharged from inpt PT. See discharge summary. Treatment time: AM: 15 minutes [id number] PM: 10 minutes [id number] Ruth Ann Stevens PTA
--- NOTE | 2019-08-28 16:27 | W.INDIABCONS ---
Date of service: 08/28/19 Time of Service: 16:27 Diabetes Inpatient Consult DESCRIPTION/ASSESSMENT: Appreciate diabetes consult for Mr. Mascorro who is hospitalized with back pain. He had an A1c greater than 6.5 in 2016 now at 5.9 in pre-diabetes level 500mg Metformin daily. BMI 53 Blood sugars here 85-132 without medication for diabetes management. No intervention suggested at this time. He may qualify for the [employer] diabetes group or outpatient support for weight management as a tool for diabetes prevention. Time Spent in Nutritional Counseling and Treatment: 0 minutes face to face
--- NOTE | 2019-08-28 16:38 | CMDISCH_ITS ---
- If Service Date Differs Date of service: 08/28/19 Time of Service: 16:38 LACE Index Scoring Tool - Questions: Length of Stay (in days): 3 Acuity (Admit via E.D.?): Yes Comorbidities: Diabetes w/o Complication E.D. Visits: 1 - Answers: Total Score: 8 Risk of Readmission: Low Risk Care Management Discharge Reason for Hospitalization: Foot fracture Discharge Plan: Keith will return home with no additional services at this time. His s/o will drive him home via private vehicle. CM coordinated a bariatric FWW as well as a HD commode through [facility], which he will have a 20% copay for. He will follow up with his PCP, as recommended. Patient/Family Education Needs: Review discharge instructions regarding activity levels and medications, discussion of self care needs including ask me three Services Needed at Discharge: DME Agency ([facility])
--- NOTE | 2019-09-01 11:29 | INDS_ITS ---
Date of service: 09/01/19 Time of Service: 11:29 PT Notes Visit Reasons: FOOT FX/ INTRACTABLE BACK PAIN Physical Therapy Inpatient Discharge Summary Date: 09/01/2019 Dates of Service: 08/17/2019 through 08/28/2019 This is a clinical summary of care provided on the duration of dates listed above. No charge was made in the completion of this documentation. Objective: prone on elbows in bed. IV line in LUE, detached from IV pump. Pain: 1/10 lying prone on elbows. 6/10 sitting on the edge of bed. Vital Signs: NT ROM: Right Upper Extremity: Shoulder Flexion WFL. Shoulder abduction WFL. Elbow flexion WFL. Wrist flexion WFL. Opening and closing of hand WFL. Left Upper Extremity: Shoulder Flexion WFL. Shoulder abduction WFL. Elbow flexion WFL. Wrist flexion WFL. Opening and closing of hand WFL. Right Lower Extremity: Hip flexion WFL. Hip abduction WFL. Knee flexion WFL. Ankle dorsiflexion WFL. Ankle plantarflexion WFL. Left Lower Extremity: Hip flexion WFL. Hip abduction WFL. Knee flexion WFL. Ankle dorsiflexion WFL. Ankle plantarflexion WFL. Strength: Right Upper Extremity: Shoulder flexors 5/5 (increased back pain). Shoulder abductors 5/5. Elbow flexors 5/5. Elbow extensors 5/5. Pottery Decoration Designer strong. Left Upper Extremity: Shoulder flexors 5/5 (increased back pain). Shoulder abductors 5/5. Elbow flexors 5/5. Elbow extensors 5/5. Pottery Decoration Designer strong. Lower extremity strength is grossly a 4/5, limited by pain in back and left lower extremity Sensation: Intact as to pain and pressure on bilateral lower extremities. Bed Mobility/Transfers: Rolling supervision Supine to sit supervision Sit to supine supervision Sit to stand supervision Stand to sit supervision Bed to chair supervision Chair to bed supervision Gait: Pt was able to ambulate 100 feet + 120 feet, WBAT with post-operative shoe on right foot, using a bariatric front-wheeled walker. Supervision provided by REFRIGERATING TECHNICIAN. Stairs: Pt was able to ascend and descend 4 inch steps x3 and 6 inch steps x2. Step to gait pattern. Balance: Static Sitting: Good Dynamic Sitting: Good Static Standing: Fair Dynamic Standing: Fair Palpation: Pt is tender to palpation along the area of the left piriformis Assessment: Pt is a 34-year-old, obese, male that presented to the ER on 08/26/2019 following a fall at home due to back pain and lower extremity weakness. He was diagnosed with a right foot fifth metatarsal head fracture. Pt presented with impairment level findings and functional limitations as listed below during the physical therapy evaluation. He demonstrated improved mobility with ambulation as he was able to tolerate a greater distance without significant increases in pain or rest breaks. He shows improvements in mobility as well with his ability to tolerate ascending and descending stairs without increases in pain. Pt would benefit from outpatient physical therapy at this time for reductions in pain and improved mobility. Patient presented with clinical signs and symptoms consistent with current/admitting diagnoses that have resulted to mobility limitations, gait instability, and generalized weakness as demonstrated by the following impairment level findings: 1. Decreased strength to B LE major muscle groups secondary to pain 2. Impaired standing balance 3. Impaired activity tolerance Impairments continue to contribute to the following functional limitations: 1. Increased dependence with transfers 2. Inability to safely ambulate without assistive device and physical assistance 3. Increase completion time for mobility ADL performance 4. Increased fall risk 5. Inability to negotiate steps alone safely Patient is assessed as a [id number] moderate complexity based on the following: History: Pt is a 34-year-old male presented to the ER on 08/26/2019 following a fall at home due to back pain and lower extremity weakness. He was diagnosed with a right foot fifth metatarsal head fracture. Presents with impairment level findings and functional limitations as listed above. Examination: Demonstrable impairment in strength, balance, and range of motion with underlying impairments and functional limitations as documented above Presentation: Evolving Decision Makin moderate complexity Goals: Goals X1 week 1. Supine-Sit independent-NOT MET 2. Sit-Supine independent-NOT MET 3. Sit-Stand independent-NOT MET 4. Stand-Sit independent-NOT MET 5. Bed-Chair independent-NOT MET 6. Chair-Bed independent-NOT MET 7. Independent gait on level surface with use of least restrictive device for at least 300 feet without report of pain nor dyspnea-NOT MET 8. Independent stair negotiation while holding onto bilateral rails for at least 5 steps without report of pain nor dyspnea-MET 9. Independent with home exercise program -NOT MET 10. Good static and dynamic standing balance/tolerance-NOT MET DISCHARGE RECOMMENDATIONS: Discharge to home when medically cleared with recommendation for outpatient physical therapy. Thank you very much for this referral. Lexi Mason, SPT Doctor of Physical Therapy Student [facility] Supervision provided by Penelope Kelly PT, DPT, CLT [facility] [place], [place]
--- NOTE | 2019-09-03 10:20 | W.PM.DS.N ---
Date of service: 08/28/19 Time of Service: 16:00 DS: Diagnosis Discharge Diagnosis (1) Back pain: Status: Acute Asessment and Plan: Admitted with intractable back pain following trauma. He displayed no red flag issues. Physical therapy worked with him with gradual mobilization. Pain control with heat, muscle relaxants, corticosteroids, Toradol, as needed Dilaudid. He is discharged with 4 more days of prednisone and Toradol. (2) Diabetes type 2, controlled: Status: Acute (3) Obstructive sleep apnea: Status: Chronic (4) Foot fracture: Status: Acute Asessment and Plan: He suffered a fracture to the distal fifth metatarsal, minimally displaced. His films were reviewed by Dr. Trevino from orthopedics. A foot immobilizer was prescribed. Weight-bear as tolerated. Discharge Plan Disposition Patient Disposition: HOME Condition: Improving Discharge Details Chief Complaint: Nk/Back Pain Clinical Impression: Foot fracture, Back pain, Fall Reason For Visit: FOOT FX/ INTRACTABLE BACK PAIN Admit Date/Time: 08/26/19 16:05 Admit Provider: Servando Decker Attending Provider: Servando Decker Primary Care Provider: Jalen Tobias ED Provider: Rossana Moyer Hospital Course Hospital Course: 34-year-old man with chronic low back pain. He was recently disabled by an acute back injury on 08/09/2019. He was hobbling around his home when he got near some steps fell down 6 stairs. His right foot got caught underneath him and he developed right foot pain in addition to his severe back pain. In the emergency room x-rays confirmed a right fifth metatarsal head fracture, minimally displaced. Dr. Trevino reviewed the film and felt a rigid orthopedic boot would be satisfactory with weightbearing as tolerated. His back pain was so severe that while he could stand and walk with a walker he could not sit for any length of time. He was started on Flexeril 3 times daily, IV Dilaudid, prednisone. He worked with physical therapy and his mobility gradually improved. He is discharged on a short course of prednisone, oxycodone, Toradol, Flexeril. Further follow-up with his primary care next week. Home Meds and New Rx's Prescriptions: New cyclobenzaprine 10 mg tablet 10 mg PO TID PRN (Reason: muscle spasm) Qty: 10 RF: 0 cyclobenzaprine 10 mg Tablet 10 mg PO TID PRN PRN (Reason: muscle spasm) Qty: 30 RF: 0 ketorolac 10 mg Tablet 10 mg PO Q4H PRN PRN (Reason: pain) Qty: 20 RF: 0 prednisone 20 mg Tablet 40 mg PO DAILY Qty: 14 RF: 0 oxycodone 5 mg tablet 5 mg PO Q6H PRN (Reason: pain) Qty: 14 RF: 0 Continued losartan [Cozaar] 25 MG tablet 50 mg PO DAILY RF: 0 clobetasol-emollient 15 GM cream 15 gm Topical DIRECTED RF: 0 ammonium lactate (bulk) 1 ML solution 1 ml Miscellaneous DIRECTED RF: 0 Ketoconazole 15 GM CREAM..G. 15 gm Topical PRN RF: 0 methadone 10 MG/5 ML solution 20 mg PO DAILY RF: 0 metformin 500 mg Tablet Extended Release 24hr 500 mg PO HS RF: 0 citalopram 20 mg Tablet 20 mg PO DAILY RF: 0 Discontinued cyclobenzaprine 10 MG tablet 10 mg PO hs prn Qty: 90 RF: 0 Discharge Instructions Instructions: Foot Fracture in Adults (ED), Back Pain (ED) Additional Instructions: Boot and crutches for ambulation. Limit weightbearing on your foot. Rest. Activities as tolerated. Elevate injury to prevent swelling. Ice to the area of discomfort for 15 min. 3-5 times daily. Followup with orthopedic doctor as discussed if not improving in one week. Ice to the back for the first 5 days then may introduce heat as discussed muscle relaxant as prescribed. Do not drive, drink alcohol or work while taking this medication Return for any worsening or concerns sooner if needed. Stand Alone Forms: Nursing Discharge Form Referrals: Hernán De La Garza MD [ [facility] STAFF PHYSICIAN] - Clayton Walls NP [NURSE PRACTITIONER] - (Please make follow up for 1 week. ) Activity:: Activity as Tolerated Equipment/Supplies:: Walker Diet:: Carb Counting Discharge Orders Discharge Orders: Discharge Order (Routine); Ordered 08/28/19 Ordered By: Servando Decker Discharge Data Discharge Date/Time-TO BE ENTERED AT DEPARTURE: 08/28/19 16:32 DS: Summary Status at Discharge Functional status at discharge: uses cane/walker Overall status at discharge: patient is progressing back to baseline Mental Status: mental status grossly normal Speech and Movement: speech and movement normal Mood: congruent mood Affect: normal affect Time Spent with Patient providing and/or coordinating discharge services: Greater than 30 minutes Exam Narrative Exam Narrative: Exam on the day of discharge he was sitting up on the side of the bed. He was affable and did not appear in significant distress. He was able to move around reasonably well including ambulating with a walker. Psych Mental Status: mental status grossly normal Speech and Movement: speech and movement normal Mood: congruent mood Affect: normal affect DS: Data Vitals/I&O Vitals and I&O: Vital Signs Temperature 36.6 C 08/28/19 07:34 Temperature Source Tympanic 08/28/19 07:34 Pulse 77 08/28/19 07:34 Pulse Rhythm Regular 08/28/19 08:22 Respiratory Rate 18 08/28/19 07:34 Respiratory Effort Non-Labored 08/28/19 08:22 Respiratory Depth Normal 08/28/19 08:22 Respiratory Pattern Normal 08/28/19 08:22 Blood Pressure 124/65 08/28/19 07:34 Blood Pressure Position Sitting 08/26/19 11:46 Pulse Oximetry 95 08/28/19 07:34 Oxygen Delivery Method Room Air 08/28/19 07:34 Oxygen Flow Rate 0 08/28/19 07:34 Pain Level 4 08/28/19 14:30 [facility] Medical History Diabetes type 2, controlled (Acute) Erectile dysfunction (Acute) Hypertension Migraine Obesity, Class III, BMI 40-49.9 (morbid obesity) Obstructive sleep apnea (Chronic) Opiate abuse, episodic (Acute) Remote history, on methadone x10 years recurrent gi bleed Tobacco abuse (Acute) Surgical History Colonoscopy - MAC 2009- normal Family History Grandmother No problems noted. Other Crohn's colitis Social History Smoking/Tobacco Use Status: Former Tobacco Use Drug use: Current Sobriety Do you feel safe in your relationship?: Yes
== END 2019-08-28 16:32 | disposition home or self-care (01) ==
LOC: ER 14:45 → MS 17:00
PROVIDERS: Admitting Provider Family Medicine; Emergency Provider Physician Assistant; PCP Family Medicine; Visit Provider Family Medicine
DX: S92.351A Displaced fracture of fifth metatarsal bone, right foot, initial encounter for closed fracture (principal); S39.012A Strain of muscle, fascia and tendon of lower back, initial encounter; W10.9XXA Fall (on) (from) unspecified stairs and steps, initial encounter; M54.9 Dorsalgia, unspecified; G89.29 Other chronic pain; R53.1 Weakness; E11.9 Type 2 diabetes mellitus without complications; Z79.84 Long term (current) use of oral hypoglycemic drugs; G47.33 Obstructive sleep apnea (adult) (pediatric); Z79.891 Long term (current) use of opiate analgesic; Z68.43 Body mass index [BMI] 50.0-59.9, adult; E66.9 Obesity, unspecified; Z71.3 Dietary counseling and surveillance
CPT/HCPCS: 28470; 36415; 80048; 85027; 96372; 96374; 97110; 97162; 97530; 99217; 99219; 99225; 99285; 72110; 73502; 73610; 73630; 83036; 93005; 93010; 99284; E0114; G0378; J2930; J7512; L4361

== ENCOUNTER 2019-09-08 13:10 | Outpatient (REF) | payer BC, SELFPAY ==
[2019-09-08 18:51] LABS: Bilirubin Negative (Negative); Blood Negative (Negative); Clarity Clear (Clear); Glucose Negative (Negative); Ketones Negative (Negative); Leukocyte Esterase Negative (Negative); Nitrite Negative (Negative); Urobilinogen 0.2 EU/dL (Up TO 0.2)
[2019-09-10 16:40] LABS: Chlamydia Result Negative (Negative); GC Result Negative (Negative)
== END 2019-09-08 13:30 ==
LOC: NCHCN 13:10
PROVIDERS: PCP Nurse Practitioner Family; Visit Provider Nurse Practitioner Family
DX: M54.5 Low back pain (principal); Z20.2 Contact with and (suspected) exposure to infections with a predominantly sexual mode of transmission; Z11.3 Encounter for screening for infections with a predominantly sexual mode of transmission
CPT/HCPCS: 87491; 87591; 81003; 87086

== ENCOUNTER 2019-09-08 13:20 | Outpatient (CLI) | payer BC, SELFPAY ==
--- NOTE | 2019-09-08 12:15 | DI.US_ITS ---
EXAM: US LOWER EXTREMITY VENOUS RT US LOWER EXTREMITY VENOUS RT CLINICAL HISTORY: RT LEG PAIN M79.661, SWELLING RT LEG M79.89. RT LEG PAIN M79.661, SWELLING RT LEG M79.89 TECHNIQUE: Lower extremity venous ultrasound performed using grayscale, color-flow, and spectral Dop pler analysis. COMPARISON: No exams were available for comparison FINDINGS: The common femoral, femoral and popliteal veins demonstrate normal compressibility, augmentation, and color Doppler. The posterior tibial veins are patent. The saphenous vein appears free of thrombus. No Aleman's cyst or hematoma is seen. IMPRESSION: No evidence of DVT.
--- NOTE | 2019-09-08 12:44 | DI.US_ITS ---
EXAM: US SCROTUM CLINICAL HISTORY: TESTICULAR PAIN TECHNIQUE: Ultrasound performed using standard protocol. COMPARISON: No exams were available for comparison FINDINGS: The testicles are normal in size and echogenicity. There is no evidence of mass or torsion. There are a few small tunica albuginea cysts on the right side. A spermatocele is seen in the right epidid ymal head measuring 3.1 cm in greatest dimension. There is a small right hydrocele. 9 millimeters s permatocele is seen in the head of the left epididymis. IMPRESSION: 3.1 centimeter right epididymal head spermatocele. Others smaller spermatoceles and tunica albuginea cysts are noted.
== END 2019-09-08 13:40 ==
PROVIDERS: PCP Nurse Practitioner Family; Visit Provider Nurse Practitioner Family
DX: N50.89 Other specified disorders of the male genital organs (principal); N43.40 Spermatocele of epididymis, unspecified; N43.3 Hydrocele, unspecified; M79.661 Pain in right lower leg; R22.41 Localized swelling, mass and lump, right lower limb
CPT/HCPCS: 76870; 93971

== ENCOUNTER 2019-09-21 01:22 | Outpatient (CLI) | payer BC, SELFPAY ==
--- NOTE | 2019-09-21 14:34 | DI.MRI_ITS ---
EXAM: MR LUMBAR SPINE WO CLINICAL HISTORY: LOW BACK PAIN, M54.5,SWELLING RT LEG, M79.89,RT LEG NUMBNESS,R20.0. TECHNIQUE: Multiplanar multisequence MRI was performed. COMPARISON: No exams were available for comparison FINDINGS: MR examination lumbosacral spine was performed according to the usual protocol. No significant bony signal abnormality seen. Conus medullaris appears intact. There is mild disc bulge at T12-L1. No significant findings at L1-2. Moderate disc bulge at L2-3. There is a large predominantly central disc herniation which occupies the majority of the spinal samantha l at the L3-4 level, left greater than right. There is marked distortion of the thecal sac particula rly in the left lateral recess. Neural impingement likely at this level. At L 4 5 there is a moderate-sized broad-based disc herniation. This is most prominent centrally and left lateral. Possible neural impingement of left L5 and/or S1 nerve roots. No disc herniation identified at L5-S1. Prominent facet hypertrophic changes noted at L5-S1 and L4-5. no signal bony central canal spinal st enosis or neural foraminal stenosis at the levels surveyed. IMPRESSION: Very large disc herniation at L3-4, likely bilateral neural impingement at this level. The disc mario iation occupies majority of the spinal canal, probably up to 80 percent of the area of the spinal can al. Moderate sized broad-based disc herniation at L4-5 also noted. DATA REPOSITORY:
== END 2019-09-21 01:42 ==
PROVIDERS: PCP Nurse Practitioner Family; Visit Provider Family Medicine
DX: M51.26 Other intervertebral disc displacement, lumbar region (principal); M51.25 Other intervertebral disc displacement, thoracolumbar region; M54.5 Low back pain; M79.89 Other specified soft tissue disorders; R20.0 Anesthesia of skin
CPT/HCPCS: 72148

== ENCOUNTER 2020-01-15 14:25 | Outpatient (REF) | payer BC, MEDICAID, SELFPAY ==
[2020-01-15 17:57] LABS: HCT 50.4 % (40.0-50.0); HGB 16.9 g/dL (13.5-17.5); Mean Corp. HGB Concentration 33.5 g/dL (32.0-36.0); Mean Corpuscular Hemoglobin 30.2 pg (27.0-33.0); Mean Corpuscular Volume 90.2 fL (80-95); Mean Platelet Volume 11.2 fL (8.0-11.0); Platelet Count 361 x1000/uL (130-400); RBC 5.59 m/cumm (4.50-6.00); RBC Distribution Width 14.2 % (11.8-14.1)
[2020-01-15 18:50] LABS: Anion Gap 9.4 mmol/L (3-11); BUN 11 mg/dL (7-18); CO2 29.6 mmol/L (21.0-32.0); CREATININE 1.04 mg/dL (0.70-1.30); Calcium 9.5 mg/dL (8.5-10.1); Chloride 103 mmol/L (98-107); Ferritin 41 ng/mL (26-388); Glucose 117 mg/dL (74-106); Potassium 4.3 mmol/L (3.5-5.1); Sodium 142 mmol/L (136-145)
[2020-01-18 13:07] LABS: IgA 350 mg/dL (85-499); Tissue Transglutaminase IgA <1.2 U/mL (<4.0)
== END 2020-01-15 14:45 ==
LOC: NCHCN 14:25
PROVIDERS: PCP Nurse Practitioner Family; Visit Provider Nurse Practitioner Family
DX: R19.7 Diarrhea, unspecified (principal); G47.61 Periodic limb movement disorder; M25.511 Pain in right shoulder; F11.21 Opioid dependence, in remission
CPT/HCPCS: 80048; 82784; 83516; 85027; 82728

== ENCOUNTER 2020-01-29 10:59 | Outpatient (REF) | payer MEDICAID, SELFPAY ==
[2020-01-30 10:51] LABS: Campylobacter PCR Negative (Negative); Salmonella PCR Negative (Negative); Shiga Toxin PCR Negative (Negative); Shigella/Enteroinvasive Ecoli Negative (Negative)
== END 2020-01-29 11:19 ==
LOC: NCHCN 10:59
PROVIDERS: PCP Nurse Practitioner Family; Visit Provider Nurse Practitioner Family
DX: R19.7 Diarrhea, unspecified (principal)
CPT/HCPCS: 87329; 87505

== ENCOUNTER 2020-06-21 03:26 | Outpatient (CLI) | payer MEDICAID, SELFPAY ==
[2020-06-21 12:42] LABS: Abs Immature Grans 0.02 10^3/uL (0.0-0.06); Absolute Basophil Count 0.07 10^3/uL (0.0-0.2); Absolute Eosinophil Count 0.32 10^3/uL (0.0-0.7); Absolute Monocyte Count 0.67 10^3/uL (0.1-0.8); Absolute Neutrophil Count 4.95 10^3/uL (1.2-6.7); Basophils % 0.8; Eosinophils % 3.8; HCT 51.1 % (40.0-50.0); HGB 16.8 g/dL (13.5-17.5); Immature Grans % 0.2; Lymphocytes % 27.6; MCH 30.2 pg (27.0-33.0); MCHC 32.9 % (32.0-36.0); MCV 91.9 fL (80-95); MPV 10.1 fL (8.0-11.0); Neutrophils % 59.6; Nucleated RBC 0 %; Platelet Count 323 10^3/uL (130-400); RBC 5.56 10^6/uL (4.36-5.78); RDW 13.1 % (11.8-14.1); RDW-SD 44.3 fL; WBC 8.33 10^3/uL (4.4-10.8)
[2020-06-21 13:22] LABS: ESR 8 mm/hr (0-15)
[2020-06-21 13:53] LABS: C-Reactive Protein 0.96 mg/dL (0.0-0.3)
[2020-06-24 22:12] LABS: c-ANCA Negative (Negative); p-ANCA Positive (Negative)
[2020-06-27 15:37] LABS: ANA Interpretation 0.4 (Negative)
== END 2020-06-21 03:46 ==
PROVIDERS: PCP Nurse Practitioner Family; Visit Provider Surgery
DX: R10.9 Unspecified abdominal pain (principal); R19.7 Diarrhea, unspecified; K64.9 Unspecified hemorrhoids; K62.89 Other specified diseases of anus and rectum; G47.33 Obstructive sleep apnea (adult) (pediatric); Z83.79 Family history of other diseases of the digestive system
CPT/HCPCS: 36415; 85652; 85025; 86038; 86140; 86255

== ENCOUNTER 2020-06-29 01:03 | Outpatient (CLI) | payer MEDICAID, SELFPAY ==
--- NOTE | 2020-06-29 06:30 | DI.US_ITS ---
EXAM: US ABDOMEN CLINICAL HISTORY: Abdominal pain and diarrhea,r19.7,r10.9 TECHNIQUE: Ultrasound abdomen performed using standard protocol. COMPARISON: No exams were available for comparison FINDINGS: LIVER: Enlarged at 23 cm cephalo caudad. Mildly increased overall echogenicity, consistent with mild hepatic steatosis.. No focal liver lesions are seen.. GALLBLADDER: No evidence of cholelithiasis. No evidence of wall thickening. No pericholecystic fluid identified. RAMIRES'S SIGN: Negative. BILIARY SYSTEM: No intrahepatic or extrahepatic biliary ductal dilation. KIDNEYS: Kidneys are symmetric in size. Two small nonobstructing stones are noted in the mid left kid glenna measuring 5 millimeters in size. No evidence of hydronephrosis. No renal mass or cyst identified . PANCREAS: Normal where visualized. Limited visualization of body and tail. SPLEEN: Borderline splenomegaly with a cephalocaudad dimension of 12.6 cm. ABDOMINAL AORTA AND IVC: Visualized portions normal caliber. ASCITES: None seen. IMPRESSION: Hepatomegaly and mild hepatic steatosis. Borderline splenic enlargement.. DATA REPOSITORY:
== END 2020-06-29 01:23 ==
PROVIDERS: PCP Nurse Practitioner Family; Visit Provider Surgery
DX: K76.0 Fatty (change of) liver, not elsewhere classified (principal); R19.7 Diarrhea, unspecified
CPT/HCPCS: 76700

== ENCOUNTER 2020-06-30 02:34 | Outpatient (CLI) | payer MEDICAID, SELFPAY ==
[2020-07-02 16:36] LABS: COVID-19 RT-PCR Result NEGATIVE (Negative)
== END 2020-06-30 02:54 ==
PROVIDERS: PCP Nurse Practitioner Family; Visit Provider Surgery
DX: Z11.59 Encounter for screening for other viral diseases (principal); Z01.818 Encounter for other preprocedural examination
CPT/HCPCS: U0003

== ENCOUNTER 2020-07-04 07:10 | Day surgery (SDC) | payer MEDICAID, SELFPAY ==
[2020-07-04 07:27] VITALS: BP 125/75; PULSE 86; RESP 18; TEMP 36.3; O2SAT 97
[2020-07-04] MEDS: Lactated Ringers 1,000 ML 80 ML IV (07:45)
--- NOTE | 2020-07-04 09:35 | W.COLOREPORT ---
Date of service: 07/04/20 Time of Service: 09:35 Colonoscopy Report Date of procedure: 07/04/20 Pre-op diagnosis general: rectal bleeding/+pANCA/fam hx of crohns Surgeon: Radha Reynolds Anesthesia proc note operative: GETA Pathology: other Complications: None Disposition: same day Prep: Miralax/Dulcolax Retraction Time: 18mins Procedure Description: After informed consent was obtained the patient was taken to the procedure room and placed in a left decubitous position. Monitors were applied and a time out was done. The patients name, date of , procedure, allergies to medications and metal in their body was reviewed. The patient was then sedated. Once sedated and comfortable a rectal exam was done. External exam was normal- no external masses/hemorrhoids. tags, fissures. Internal exam revealed a normal sphincter tone and no palpable masses. The scope was then introduced and retrofelexed. Grade II internal hemorrhoids were identified. The scope was then advanced to the cecum w/out difficulty. The TI and appendiceal orifice were identified. I could not canulate the I-C valve to get into the TI, there was too much spasm. The prep was adequate. The scope was then slowly retracted over 18 minutes back into the rectum. Biopsies are taken of the cecum/80/60/50/30 centimeters and of the rectum. All specimens are retrieved and no bleeding is noted. Polyps were removed- none. The mucosa is pink and healthy. There are no AVMs or diverticula. On anal exam he has 2 grade 2 hemorrhoids in the 11 PM and 1 o'clock position. These are banded. He has a grade 1 I. hemorrhoid at the 7oclock position that was too small to take a band. The scope was removed and the patient was woken up and taken back to Same day surgery in stable condition. The patient tolerated the procedure well and there were no immediate complications. Follow up: The patient should follow up age 46 for repeat colonoscopy, unless they develop changes in bowel habits or other new gastrointestinal complaints.
--- NOTE | 2020-07-04 10:40 | BOWEL_PTH ---
PATIENT: Keith Mascorro LOC: [place] U#:[id number] AGE/SX: 35/M ROOM: RE07/04/[address]: Radha Reynolds : 1985 BED: DIS: 07/04/2020 SPEC #: [id number] RECD: 07/04/20 12:36 STATUS: MARTIN REQ #: [id number] MARY: 07/04/20 10:[address]: Radha Reynolds DEPT: Surgical Specimen RECD BY: Mary Alice Duffy ENTERED: 07/04/20 12:38 SP TYPE: Bowel OTHR DR: Calyton Walls Tissues: 1 - BIOPSY BOWEL 2 - BIOPSY BOWEL 3 - BIOPSY BOWEL 4 - BIOPSY BOWEL 5 - BIOPSY BOWEL 6 - BIOPSY BOWEL Procedures: GROSS AND MICRO LEVEL 4 Comments: [id number]
--- NOTE | 2020-07-04 11:33 | W.PM.DSUDISC ---
Discharge Plan Disposition Patient Disposition: HOME Condition: Good Discharge Details Reason For Visit: colon scope Attending Provider: Radha Reynolds Primary Care Provider: Clayton Walls Home Meds and New Rx's Prescriptions: Continued famotidine 20 mg tablet 20 mg PO DAILY Qty: 30 RF: 1 losartan [Cozaar] 25 MG tablet 50 mg PO DAILY RF: 0 clobetasol-emollient 15 GM cream 15 gm Topical DIRECTED RF: 0 ammonium lactate (bulk) 1 ML solution 1 ml Miscellaneous DIRECTED RF: 0 Ketoconazole 15 GM CREAM..G. 15 gm Topical PRN RF: 0 albuterol sulfate [ProAir HFA] 90 mcg/actuation HFA aerosol inhaler 2 puff IH Q6H PRNRF: 0 citalopram 20 mg Tablet 20 mg PO DAILY RF: 0 Discontinued polyethylene glycol 3350 17 gram/dose powder 238 g PO ONCE Qty: 238 RF: 0 bisacodyl [Dulcolax (bisacodyl)] 5 mg tablet,delayed release (DR/EC) 5 mg PO ONCE Qty: 4 RF: 0 Discharge Instructions Additional Instructions: Findings:normal colon. Biopsy done x2 hemorrhoids banded today. Follow up:2 wks. Gail Please call if you develop: fevers >101.5 Nausea or Vomiting Abdominal pain that is not transient DAY SURGERY UNIT POST COLONOSCOPY INSTRUCTIONS 1. Because there will be medication in your system for the next 24 hours, you may feel a little sleepy. Your coordination will be affected. Therefore: a. Do not drive or operate dangerous equipment for 24 hours. b. Do not drink alcohol beverages for 24 hours (not even beer). c. Plan to go home and rest for the day. 2. Generally there are no restrictions on your activity after a day or so has gone by, but you may feel a bit fatigued for a few days. 3 After you arrive home you may have a light meal and return to a normal diet as you can tolerate it without feeling sick to your stomach. 4. After surgery, you may feel pain or discomfort. This should be only transient, but if it persists please contact your doctor. 5. If there are any questions regarding the findings of your procedure, please feel free to contact your doctor. 6. If you are unable to contact your doctor with a problem, contact the hospital at [phone]. 7. Continue all your regular medications unless directed otherwise. I understand the above instructions and have no questions. Signature of Patient or Responsible Adult Escort Date/Time Name of Responsible Adult Escort Signature of Nurse Date/Time Hemorrhoid banding itself is not painful, but it is normal for patients to experience a sense of fullness or pressure after the procedure. Tylenol or Ibuprofen usually alleviates any symptoms. Post-Procedure Do's & Don'ts Do?s: ? Take fiber supplements to avoid constipation ? Squeeze your buttocks muscles 10-15 times every two hours ? Take 10-15 deep breaths every 1-2 hours ? Drink plenty of water ? Engage in moderate exercise ? Take a sitz bath ? soaking in a tub of warm water ? after every bowel movement Don?ts: ? Stay seated for more than 2-3 hours ? Rub or scrub the anus too vigorously ? Try to force a bowel movement ? if you cannot go, stop and try again later ? Insert anything into the anus for two weeks ? unless you have been prescribed anorectal medication ? Avoid alcohol, as it can dehydrate you and lead to constipation Occasionally, you may experience bleeding after the hemorrhoid banding procedure. Do not be concerned if there is a minimal amount of blood. However, if bleeding continues, lie flat with your bottom higher than your head and apply an ice pack to the area. If the bleeding does not stop within a half-hour, call our office or go to the emergency room. Bleeding complications are uncommon and occur <1% of the time. Additional Tips ? To avoid constipation, take two tablespoons of natural wheat bran, natural oat bran, flax, Benefiber or any over the counter fiber supplement with 7-8 glasses of water. Activity:: no lifting over 20#'s or strenuous activity x 72 hrs Diet:: small light meals x 24 hrs Discharge Orders Discharge Orders: Discharge Order (Routine); Ordered 07/04/20 Ordered By: Radha Reynolds DS: Diagnosis Discharge Diagnosis (1) Diarrhea: Status: Acute (2) Rectal or anal pain: Status: Acute (3) Obstructive sleep apnea: Status: Chronic (4) Bleeding hemorrhoids: Status: Acute (5) ROCK (nonalcoholic steatohepatitis): Status: Acute
[2020-07-04 11:45] VITALS: BP 149/72; PULSE 84; RESP 18; TEMP 36.5; O2SAT 96
--- NOTE | 2020-07-04 12:30 | W.PM.DSUDISC ---
Discharge Plan Disposition Patient Disposition: HOME Condition: Good Discharge Details Reason For Visit: colon scope Attending Provider: Radha Reynolds Primary Care Provider: Clayton Walls Home Meds and New Rx's Prescriptions: New ibuprofen 800 mg tablet 800 mg PO Q8H PRNQty: 60 RF: 3 Continued famotidine 20 mg tablet 20 mg PO DAILY Qty: 30 RF: 1 losartan [Cozaar] 25 MG tablet 50 mg PO DAILY RF: 0 clobetasol-emollient 15 GM cream 15 gm Topical DIRECTED RF: 0 ammonium lactate (bulk) 1 ML solution 1 ml Miscellaneous DIRECTED RF: 0 Ketoconazole 15 GM CREAM..G. 15 gm Topical PRN RF: 0 albuterol sulfate [ProAir HFA] 90 mcg/actuation HFA aerosol inhaler 2 puff IH Q6H PRNRF: 0 citalopram 20 mg Tablet 20 mg PO DAILY RF: 0 Discontinued polyethylene glycol 3350 17 gram/dose powder 238 g PO ONCE Qty: 238 RF: 0 bisacodyl [Dulcolax (bisacodyl)] 5 mg tablet,delayed release (DR/EC) 5 mg PO ONCE Qty: 4 RF: 0 Discharge Instructions Additional Instructions: Findings:normal colon. Biopsy done x2 hemorrhoids banded today. Follow up:2 wks. Gail Please call if you develop: fevers >101.5 Nausea or Vomiting Abdominal pain that is not transient DAY SURGERY UNIT POST COLONOSCOPY INSTRUCTIONS 1. Because there will be medication in your system for the next 24 hours, you may feel a little sleepy. Your coordination will be affected. Therefore: a. Do not drive or operate dangerous equipment for 24 hours. b. Do not drink alcohol beverages for 24 hours (not even beer). c. Plan to go home and rest for the day. 2. Generally there are no restrictions on your activity after a day or so has gone by, but you may feel a bit fatigued for a few days. 3 After you arrive home you may have a light meal and return to a normal diet as you can tolerate it without feeling sick to your stomach. 4. After surgery, you may feel pain or discomfort. This should be only transient, but if it persists please contact your doctor. 5. If there are any questions regarding the findings of your procedure, please feel free to contact your doctor. 6. If you are unable to contact your doctor with a problem, contact the hospital at [phone]. 0. Continue all your regular medications unless directed otherwise. I understand the above instructions and have no questions. Signature of Patient or Responsible Adult Escort Date/Time Name of Responsible Adult Escort Signature of Nurse Date/Time Hemorrhoid banding itself is not painful, but it is normal for patients to experience a sense of fullness or pressure after the procedure. Tylenol or Ibuprofen usually alleviates any symptoms. Post-Procedure Do's & Don'ts Do?s: ? Take fiber supplements to avoid constipation ? Squeeze your buttocks muscles 10-15 times every two hours ? Take 10-15 deep breaths every 1-2 hours ? Drink plenty of water ? Engage in moderate exercise ? Take a sitz bath ? soaking in a tub of warm water ? after every bowel movement Don?ts: ? Stay seated for more than 2-3 hours ? Rub or scrub the anus too vigorously ? Try to force a bowel movement ? if you cannot go, stop and try again later ? Insert anything into the anus for two weeks ? unless you have been prescribed anorectal medication ? Avoid alcohol, as it can dehydrate you and lead to constipation Occasionally, you may experience bleeding after the hemorrhoid banding procedure. Do not be concerned if there is a minimal amount of blood. However, if bleeding continues, lie flat with your bottom higher than your head and apply an ice pack to the area. If the bleeding does not stop within a half-hour, call our office or go to the emergency room. Bleeding complications are uncommon and occur <1% of the time. Additional Tips ? To avoid constipation, take two tablespoons of natural wheat bran, natural oat bran, flax, Benefiber or any over the counter fiber supplement with 7-8 glasses of water. Pain control: Alternate 800mg ibuprofen (take w/ food) every 8hrs and tylenol 1000mg po every 6hrs for pain. Activity:: no lifting over 20#'s or strenuous activity x 72 hrs Diet:: small light meals x 24 hrs Discharge Orders Discharge Orders: Discharge Order (Routine); Ordered 07/04/20 Ordered By: Radha Reynolds DS: Diagnosis Discharge Diagnosis (1) Diarrhea: Status: Acute (2) Rectal or anal pain: Status: Acute (3) Obstructive sleep apnea: Status: Chronic (4) Bleeding hemorrhoids: Status: Acute (5) ROCK (nonalcoholic steatohepatitis): Status: Acute
[2020-07-04] MEDS: Ketorolac 30 MG/ML VIAL IM (12:35)
[2020-07-04] MEDS: Acetaminophen 500 MG TAB 1000 MG PO (12:35)
== END 2020-07-04 13:15 | disposition home or self-care (01) ==
PROVIDERS: PCP Nurse Practitioner Family; Visit Provider Surgery
PROC: 0DJD8ZZ Inspection of Lower Intestinal Tract, Via Natural or Artificial Opening Endoscopic (ICD-10-PCS; CPT 45378; principal; 2020-07-04 08:30)
PROC: (CPT 45398; 2020-07-04 08:30)
DX: K62.5 Hemorrhage of anus and rectum (principal); R79.89 Other specified abnormal findings of blood chemistry; Z83.79 Family history of other diseases of the digestive system; K64.1 Second degree hemorrhoids; K64.0 First degree hemorrhoids; R19.7 Diarrhea, unspecified; G47.33 Obstructive sleep apnea (adult) (pediatric); R10.9 Unspecified abdominal pain
CPT/HCPCS: 45398; 45380; 88305; J1885; J2001; J2405; J2704

== ENCOUNTER 2021-05-26 03:36 | Outpatient (CLI) | payer MEDICAID, SELFPAY ==
[2021-05-26 11:21] LABS: Hemoglobin A1C 5.5 % (<5.7)
[2021-05-26 11:56] LABS: ALT 37 U/L (16-63); AST 20 U/L (15-37); Alkaline Phosphatase 57 U/L (46-116); Anion Gap 7.7 mmol/L (3-11); BUN 11 mg/dL (7-18); Bilirubin, Total 0.7 mg/dL (0.2-1.0); CO2 29.3 mmol/L (21.0-32.0); Calculated LDL 82 mg/dL (<100); Chloride 104 mmol/L (98-107); Cholesterol 146 mg/dL (<200); Glucose 171 mg/dL (74-106); HDL Cholesterol 36 mg/dL (40-60); Potassium 4.1 mmol/L (3.5-5.1); Sodium 141 mmol/L (136-145); Total Protein 7.6 g/dL (6.4-8.2); Triglyceride 143 mg/dL (<150)
[2021-05-26 12:04] LABS: Lipase 286 U/L (73-393)
== END 2021-05-26 03:37 | disposition home or self-care (01) ==
LOC: LBO 03:36
PROVIDERS: PCP Nurse Practitioner Family; Visit Provider Physician Assistant
DX: R11.0 Nausea (principal); E11.9 Type 2 diabetes mellitus without complications
CPT/HCPCS: 36415; 80053; 80061; 83690; 83036

== ENCOUNTER 2021-07-06 02:40 | Outpatient (CLI) | payer MEDICAID, SELFPAY | END 2021-07-06 02:41 | disposition home or self-care (01) | LOC: LBO 02:40 | PROVIDERS: PCP Nurse Practitioner Family; Visit Provider Physician Assistant | DX: R19.7 Diarrhea, unspecified (principal) | CPT/HCPCS: 83013 ==

== ENCOUNTER 2021-07-20 03:39 | Outpatient (CLI) | payer MEDICAID, SELFPAY | END 2021-07-20 03:40 | disposition home or self-care (01) | LOC: LBO 03:39 | PROVIDERS: PCP Nurse Practitioner Family; Visit Provider Physician Assistant | DX: R19.7 Diarrhea, unspecified (principal) | CPT/HCPCS: 83013 ==

== ENCOUNTER 2022-01-17 11:44 | Emergency (ER) | payer MEDICAID, SELFPAY ==
--- NOTE | 2022-01-17 12:00 | DI.RAD_ITS ---
Exam(s) XR ELBOW LT COMPLETE EXAM: XR ELBOW LT COMPLETE CLINICAL HISTORY: Lifting injury, swelling. TECHNIQUE: 2D digital imaging was performed of the left elbow. Three images were obtained. AP, lat eral and oblique views were obtained. COMPARISON: No exams were available for comparison FINDINGS: BONES: No acute fracture is present. No bony destructive lesion is seen. JOINTS: The elbow is normally aligned. No joint effusion is seen. SOFT TISSUE: Normal. IMPRESSION: Unremarkable radiographs of the left elbow. DATA REPOSITORY: RADIATION DOSE DELIVERED:
[2022-01-17 12:03] VITALS: BP 145/83; PULSE 84; RESP 20; TEMP 36.6; O2SAT 98
--- NOTE | 2022-01-17 12:20 | W.ED.GENAD ---
Discharge Plan Disposition Patient Disposition: HOME Condition: Stable Discharge Details Clinical Impression: Injury of elbow, left Primary Care Provider: Clayton Walls ED Provider: Kobe Song Home Meds and New Rx's Prescriptions: New cyclobenzaprine 5 mg tablet 5 mg PO TID PRNQty: 14 0RF Continued clobetasol-emollient 15 GM cream 15 gm Topical DIRECTED Ketoconazole 15 GM CREAM..G. 15 gm Topical PRN albuterol sulfate [ProAir HFA] 90 mcg/actuation HFA aerosol inhaler 2 puff IH Q6H PRN citalopram 20 mg Tablet 40 mg PO DAILY gabapentin 600 mg tablet 1,200 tab PO HS Label Comments: TAKE 2 TABLET BY MOUTH EVERY NIGHT ibuprofen 800 mg tablet 800 mg PO Q8H PRNQty: 60 3RF Discharge Instructions Instructions: Elbow Sprain (ED) Additional Instructions: Evaluation is concerning for potential bicep tendon injury. Wear sling until reevaluation with orthopedics, be sure to do passive range of motion of your shoulder at least 4 times daily to avoid a frozen shoulder. Cool compresses every 2 hours for 20 minutes. [id number] Tylenol and/or Motrin as directed for discomfort. Flexeril as directed, this medication may cause drowsiness. Please watch for new or worsening symptoms and return to the ER for any concerns. Lastly, I am giving you the name and number of our local orthopedic team, please contact their office later today or tomorrow to discuss your ER visit and need for outpatient reevaluation Referrals: David Trevino MD [ [facility] STAFF PHYSICIAN] - Medical Decision Making 36-year-old male, [id number], presents to the ER for a left elbow injury that he sustained while moving a heavy radiator, felt and heard a pop. While the description of his injury is most consistent with a bicep tendon rupture or partial tear, examination is rather difficult secondary to guarding and his body habitus. I am unable to appreciate any obvious deformity. Neuro, vascular, tendon intact. Plan is to obtain an x-ray to rule out any bony involvement and reassess X-ray unremarkable. Discussed findings with patient. Will treat for presumptive soft tissue injury, potential bicep tendon injury. Will place into a sling, recommend [id number] medication for symptomatic control, cool compresses and gentle stretching. Patient requested a muscle relaxer as he feels as though he is occasionally having spasms. I will refer to orthopedics Standard discharge and return precautions were provided. Patient understands, is agreeable to this plan, and has no additional questions or concerns upon discharge. This documentation was generated using [employer]ticles[employer] system, please disregard any oddities of phrase or misspellings. Medical Records Medical records reviewed: Yes I reviewed the patient's medical records. Imaging Data Radiologic Study: Attestation: I personally reviewed and interpreted this imaging study as follows: Imaging: X-Ray Radiologist's impression: Exam(s) XR ELBOW LT COMPLETE EXAM: XR ELBOW LT COMPLETE CLINICAL HISTORY: Lifting injury, swelling. TECHNIQUE: 2D digital imaging was performed of the left elbow. Three images were obtained. AP, lateral and oblique views were obtained. COMPARISON: No exams were available for comparison FINDINGS: BONES: No acute fracture is present. No bony destructive lesion is seen. JOINTS: The elbow is normally aligned. No joint effusion is seen. SOFT TISSUE: Normal. IMPRESSION: Unremarkable radiographs of the left elbow. [facility] General Mode of arrival: ambulatory. Date/Time Provider Initiated Documentation: 01/17/22 11:47. Limitations to Documentation: no limitations. Information obtained by: patient. History of Present Illness 36 year old M presents to the emergency department with the chief complaint of L elbow pain, described as moderate, with intensity rated at 6. Quality is described as aching and other (spasm), and is localized to the left and upper extremity. Patient reports no radiation. Patient started experiencing this hour(s) (1.5) and it has been constant. Immobilization improves symptom(s), Movement worsens symptoms . Patient notes no other symptoms.. Patient did receive the following treatments prior to arrival, none Related Data Home Medications Medication Instructions Recorded Confirmed Ketoconazole 15 gm topical PRN 07/30/17 07/20/20 clobetasol-emollient 0.05 % 15 gm topical DIRECTED 07/30/17 01/17/22 topical cream citalopram 20 mg tablet 40 mg PO DAILY 08/26/19 01/17/22 albuterol sulfate 90 mcg/actuation 2 puff inhalation Q6H PRN 01/15/20 01/17/22 aerosol inhaler (ProAir HFA) ibuprofen 800 mg tablet 800 mg PO Q8H PRN #60 tabs 07/04/20 01/17/22 cyclobenzaprine 5 mg tablet 5 mg PO TID PRN #14 tabs 01/17/22 gabapentin 600 mg tablet 1,200 tab PO HS 01/17/22 01/17/22 Previous Rx's Medication Instructions Recorded ibuprofen 800 mg tablet 800 mg PO Q8H PRN #60 tabs 07/04/20 cyclobenzaprine 5 mg tablet 5 mg PO TID PRN #14 tabs 01/17/22 Allergies Allergy/AdvReac Type Severity Reaction Status Date / Time buprenorphine HCl Allergy Intermediate vomiting Verified 01/17/22 12:07 [From Suboxone] hives diarrhea hallucination naloxone HCl [From Suboxone] Allergy Intermediate vomiting Verified 01/17/22 12:07 hives diarrhea hallucination sertraline Allergy Mild unknown Verified 01/17/22 12:07 shellfish derived Allergy Swelling/Ed Verified 01/17/22 12:07 miguel zolmitriptan [From Zomig] AdvReac Severe Severe Verified 01/17/22 12:07 headache Ring of fire around my head propranolol [From Inderal LA] AdvReac Intermediate insomnia Verified 01/17/22 12:07 Sulfa (Sulfonamide AdvReac Intermediate Nausea Verified 01/17/22 12:07 Antibiotics) General Stated Complaint: Orthopedic MASOOD: 4 Review of Systems Constitutional Constitutional: Denies weakness Musculoskeletal Musculoskeletal: Denies deformity, Reports arthralgias, Denies numbness, Reports stiffness and Denies tingling Integumentary/Breasts Skin/Breast: Denies rash Neurologic Neurologic: Denies numbness, Denies tingling and Denies weakness PFSH All Active Problems (Updated 01/17/22 @ 13:06 by ARTEMIO White) Injury of elbow, left (Acute) Normal colonoscopy (Acute ~07/04/20) Bleeding hemorrhoids (Acute) ROCK (nonalcoholic steatohepatitis) (Acute) Foot fracture (Acute) Back pain (Acute) Fall (Acute) Spermatocele (Acute) Hemorrhoid (Acute) Diarrhea (Acute) Blood in stool (Acute) Family history of Crohn's disease (Acute) Rectal or anal pain (Acute) Abdominal pain (Acute) Diabetes type 2, controlled (Acute) pt. states he no longer has this Obstructive sleep apnea (Chronic) Medical History Colonoscopy planned Depression Eczema Erectile dysfunction Fatigue Hypertension Migraine Obesity, Class III, BMI 40-49.9 (morbid obesity) Opiate abuse, episodic Remote history, on methadone x10 years recurrent gi bleed Sleep apnea Swelling of right lower extremity Tobacco abuse Wheezing Surgical History Colonoscopy - [facility] 2010- normal 07/04/20 - History of colonoscopy (~07/04/20) Family History Grandmother No problems noted. Other Crohn's colitis Social History Smoking/Tobacco Use Status: Former Tobacco Use Quit Date: 07/29/14 Smoking risk assessment performed?: Yes Alcohol Intake: current Alcohol Intake frequency: holidays/special occasions only Drug use: Occasionally Substance use type: marijuana Do you feel safe at home: Yes Do you feel safe in your relationship?: Yes Exam Const General: cooperative, healthy appearing, comfortable and no acute distress Orientation: alert and awake [facility] Head: normal to inspection, normocephalic and atraumatic Eyes Conjunctivae: conjunctivae normal Neck Neck: normal visual inspection, full ROM, trachea midline and supple Resp Effort & Inspection: normal respiratory effort and able to speak in complete sentences Cardio Rate: regular rate Rhythm: regular rhythm Skin General skin exam: no rashes or lesions noted Neuro General: patient alert, patient awake, moves all extremities and no focal motor deficits Cognition: normal cognition Speech: speech normal Gait: normal gait Motor: muscle tone normal throughout Sensory Exam: no sensory deficits noted Extrem General: normal to inspection, full ROM and capillary refill normal Elbow/forearm/wrist images: 1. Given the injury is acute and his overall body habitus, difficult examination. Neuro, vascular, tendon intact. Normal radial pulse and capillary refill. Shoulder, wrist, hand unremarkable. Patient has full range of motion of his elbow but does report increased pain with full extension. Grossly 5 out of 5 strength but given his discomfort and mild guarding subtle weakness would be difficult to ascertain. I do not appreciate any obvious deformity but patient reports that he feels a lump. Psych Appearance: grossly normal Mental Status: mental status grossly normal Course Vital Signs Vital signs: Vital Signs Temperature 36.6 C 01/17/22 12:03 Pulse 84 01/17/22 12:03 Respiratory Rate 20 01/17/22 12:03 Blood Pressure 145/83 H 01/17/22 12:03 Pulse Oximetry 98 01/17/22 12:03 Temperature 36.6 C 01/17/22 12:03 Temperature Source Temporal Artery Scan 01/17/22 12:03 Pulse 84 01/17/22 12:03 Respiratory Rate 20 01/17/22 12:03 Respiratory Effort 01/17/22 12:06 Blood Pressure 145/83 H 01/17/22 12:03 Blood Pressure Position Sitting 01/17/22 12:03 Pulse Oximetry 98 01/17/22 12:03 Oxygen Delivery Method Room Air 01/17/22 12:03 Oxygen Flow Rate 0 01/17/22 12:03 Pain Level 5 01/17/22 12:03
[2022-01-17 13:15] VITALS: BP 142/68; PULSE 77; RESP 16; O2SAT 98
== END 2022-01-17 13:25 | disposition home or self-care (01) ==
PROVIDERS: Emergency Provider Physician Assistant; PCP Physician Assistant
DX: S59.802A Other specified injuries of left elbow, initial encounter (principal); X50.0XXA Overexertion from strenuous movement or load, initial encounter
CPT/HCPCS: 99283; 73080

== ENCOUNTER 2022-09-17 01:17 | Outpatient (CLI) | payer MEDICAID, SELFPAY ==
--- NOTE | 2022-09-17 09:00 | DI.RAD_ITS ---
Exam(s) XR FOOT RT COMPLETE EXAM: XR FOOT RT COMPLETE CLINICAL HISTORY: RT FOOT PAIN, M79.671. TECHNIQUE: 2D digital imaging was performed. Three views. COMPARISON: CR XR FOOT RT COMPLETE from 08/26/2019 FINDINGS: BONES: No acute fracture is present. Minimal deformity is distal 5th metatarsal related to previousl y noted fracture. Small heel spurs. No bony destructive lesion is seen. JOINTS: No dislocation present. SOFT TISSUE: Normal. IMPRESSION: No acute abnormality. DATA REPOSITORY: RADIATION DOSE DELIVERED:
== END 2022-09-17 01:37 ==
LOC: DI 01:17
PROVIDERS: PCP Physician Assistant; Visit Provider Physician Assistant
DX: M20.5X1 Other deformities of toe(s) (acquired), right foot (principal)
CPT/HCPCS: 73630

== ENCOUNTER 2022-10-05 11:12 | Outpatient (REF) | payer MEDICAID, SELFPAY ==
[2022-10-05 18:32] LABS: Abs Immature Grans 0.01 10^3/uL (0.0-0.06); Absolute Basophil Count 0.07 10^3/uL (0.0-0.2); Absolute Eosinophil Count 0.12 10^3/uL (0.0-0.7); Absolute Lymphocyte Count 1.45 10^3/uL (1.2-3.4); Absolute Monocyte Count 0.53 10^3/uL (0.1-0.8); Basophils % 1.1; Eosinophils % 1.9; HCT 49.2 % (40.0-50.0); Immature Grans % 0.2; Lymphocytes % 22.4; MCH 30.1 pg (27.0-33.0); MCHC 34.6 % (32.0-36.0); MCV 87 fL (80-95); MPV 10.9 fL (8.0-11.0); Monocytes % 8.2; Neutrophils % 66.2; Platelet Count 288 10^3/uL (130-400); RBC 5.65 10^6/uL (4.36-5.78); RDW-SD 41.7 fL; WBC 6.48 10^3/uL (4.4-10.8)
[2022-10-05 18:54] LABS: ALT 29 U/L (16-63); AST 16 U/L (15-37); Albumin 4.1 g/dL (3.4-5.0); Alkaline Phosphatase 49 U/L (46-116); Anion Gap 10.9 mmol/L (3-11); BUN 8 mg/dL (7-18); Bilirubin, Total 0.8 mg/dL (0.2-1.0); CO2 27.1 mmol/L (21.0-32.0); Calcium 9.3 mg/dL (8.5-10.1); Chloride 105 mmol/L (98-107); Estimated GFR 100.03 (mL/min/1.73m2); Glucose 135 mg/dL (74-106); Potassium 4.1 mmol/L (3.5-5.1); Sodium 143 mmol/L (136-145); TSH 0.37 uIU/mL (0.36-3.74); Total Protein 7.5 g/dL (6.4-8.2)
[2022-10-05 19:08] LABS: Hemoglobin A1C 5.5 % (<5.7)
== END 2022-10-05 11:13 | disposition home or self-care (01) ==
LOC: NCHCN 11:12
PROVIDERS: PCP Physician Assistant; Visit Provider Registered Nurse
DX: F32.9 Major depressive disorder, single episode, unspecified (principal); F43.10 Post-traumatic stress disorder, unspecified
CPT/HCPCS: 80053; 83036; 83735; 84443; 85025

== ENCOUNTER 2023-02-24 10:14 | Emergency (ER) | payer MEDICAID, SELFPAY ==
[2023-02-24] VITALS (14 sets, daily range): BP systolic 107–139; BP diastolic 56–107; PULSE 59–78; RESP 9–16; TEMP 36.5; O2SAT 94–100
--- NOTE | 2023-02-24 10:45 | RT.EKG_ITS ---
APPROVED REPORT Exam: Resting ECG Reason for Exam: dizzy Patient Location: E HR:66 bpm ECG Measurements Heart Rate 66 AXIS VA 176 P 28 QRSd 93 QRS 22 QT 356 T 25 QTc 374 Conclusion Sinus rhythm...normal P axis, V-rate 60- 99 Narrow complex normal sinus rhythm at a rate of 66. Normal axis. Intervals within normal limits. T wave inversion in lead III. No ST segment abnormalities. No acute injury pattern. No prior for co mparison.
--- NOTE | 2023-02-24 11:00 | DI.CT_ITS ---
Exam(s) CT HEAD WO EXAM: CT HEAD WO CLINICAL HISTORY: dizziness headache. TECHNIQUE: Imaging Protocol: Axial computed tomography images with coronal and sagittal reformatted images were created and reviewed COMPARISON: No exams were available for comparison FINDINGS: There are no skull fractures. There is no fluid in the visualized paranasal sinuses. There is no evidence of intracranial hemorrhage, mass effect, or shift of midline structures. There are no extra-axial fluid collections. The ventricles are not enlarged or shifted and there is no blo od within the ventricular system nor within the basal cisterns. There are abnormal areas of white matter hypodensity in the supra ventricular white matter off the co rpus callosum bilaterally. This is an abnormal finding in this age group. Possibly related to demye linating disease or other pathology.. IMPRESSION: No evidence of intracranial hemorrhage. However, there are abnormal areas of hypodensity above the b ilateral lateral ventricles associated with the corpus callosum. Follow-up contrast infused MRI liz mmended. May represent demyelinating disease or other pathology. RADIATION DOSE DELIVERED: 860.62mGy.cm Total DLP DATA REPOSITORY: All CT scans at this facility are submitted to the National Radiology Data Registry (NRDR) Dose Index Registry (DIR) with the [employer] (A[employer]). RADIATION OPTIMIZATION: All CT scans at this facility use at least one of these dose optimization te chniques: automated exposure control; mA and/or kV adjustment per patient size (includes targeted exa ms where dose is matched to clinical indication); or iterative reconstruction.
[2023-02-24 11:33] LABS: Abs Immature Grans 0.01 10^3/uL (0.0-0.06); Absolute Basophil Count 0.06 10^3/uL (0.0-0.2); Absolute Eosinophil Count 0.11 10^3/uL (0.0-0.7); Absolute Lymphocyte Count 1.64 10^3/uL (1.2-3.4); Absolute Monocyte Count 0.69 10^3/uL (0.1-0.8); Absolute Neutrophil Count 4.53 10^3/uL (1.2-6.7); Basophils % 0.9; Eosinophils % 1.6; HCT 47.3 % (40.0-50.0); HGB 16.3 g/dL (13.5-17.5); Immature Grans % 0.1; Lymphocytes % 23.3; MCHC 34.5 % (32.0-36.0); MCV 90 fL (80-95); MPV 9.9 fL (8.0-11.0); Monocytes % 9.8; Neutrophils % 64.3; Platelet Count 283 10^3/uL (130-400); RBC 5.26 10^6/uL (4.36-5.78); RDW 13.2 % (11.8-14.1); RDW-SD 43.8 fL; WBC 7.04 10^3/uL (4.4-10.8)
[2023-02-24 11:58] LABS: ALT 34 U/L (16-63); AST 18 U/L (15-37); Albumin 4.1 g/dL (3.4-5.0); Alkaline Phosphatase 46 U/L (46-116); Anion Gap 6.2 mmol/L (3-11); BUN 12 mg/dL (7-18); Bilirubin, Total 0.9 mg/dL (0.2-1.0); CO2 30.8 mmol/L (21.0-32.0); CREATININE 1.1 mg/dL (0.70-1.30); Calcium 9.2 mg/dL (8.5-10.1); Chloride 103 mmol/L (98-107); Estimated GFR 89.22 (mL/min/1.73m2); Glucose 91 mg/dL (74-106); Potassium 4.3 mmol/L (3.5-5.1); Sodium 140 mmol/L (136-145); TSH 0.64 uIU/mL (0.36-3.74); Total Protein 7.7 g/dL (6.4-8.2)
--- NOTE | 2023-02-24 12:14 | DI.VRAD_ITS ---
PROCEDURE INFORMATION: Exam: CT Head Without Contrast Exam date and time: 02/24/2023 12:00 PM Age: 37 years old Clinical indication: Other: Dizziness, headache TECHNIQUE: Imaging protocol: Computed tomography of the head without contrast. COMPARISON: No relevant prior studies available. FINDINGS: Brain: Small ovoid low attenuating lesions in the periventricular white matter. These are nonspecific findings. This can be seen with small-vessel ischemic change however a demyelinating process such as multiple sclerosis could have a similar appearance. MRI is recommended for better evaluation Cerebral ventricles: No ventriculomegaly. Paranasal sinuses: Visualized sinuses are unremarkable. No fluid levels. Mastoid air cells: Visualized mastoid air cells are well aerated. Bones/joints: Unremarkable. No acute fracture. Soft tissues: Unremarkable. IMPRESSION: There are small ovoid shaped low attenuating lesions in the periventricular white matter. These are nonspecific finding however can be seen in demyelinating process such as multiple sclerosis. MRI of the brain is recommended for better evaluation Dictated and Authenticated by: Imelda Carr MD. Ordering:MADDY Perea MD
[2023-02-24 12:32] LABS: Bilirubin Negative (Negative); Blood Negative (Negative); Clarity Clear (Clear); Glucose Negative (Negative); Ketones Trace mg/dL (Negative); Leukocyte Esterase Negative (Negative); Nitrite Negative (Negative); Specific Gravity 1.025 (1.005-1.025); Urobilinogen 0.2 mg/dL (Up to 0.2); pH 5.5 (5-8)
--- NOTE | 2023-02-24 12:50 | ED.GENADUL_ITS ---
Discharge Plan Disposition Patient Disposition: Home Discharge Details Clinical Impression: Dizziness Primary Care Provider: Bunny Horne ED Provider: Eliazar Patel Home Meds and New Rx's Prescriptions: No Action clobetasol-emollient 15 GM cream 15 gm Topical DIRECTED Patient Comments: pt reports not taking Ketoconazole 15 GM CREAM..G. 15 gm Topical PRN Patient Comments: pt reports not taking albuterol sulfate [ProAir HFA] 90 mcg/actuation HFA aerosol inhaler 2 puff IH Q6H PRN citalopram 20 mg Tablet 40 mg PO DAILY Patient Comments: pt reports not taking gabapentin 600 mg tablet 1,200 tab PO HS Patient Comments: TAKE 2 TABLET BY MOUTH EVERY NIGHT cyclobenzaprine 5 mg tablet 5 mg PO TID PRNQty: 14 0RF Patient Comments: pt reports not taking ibuprofen 800 mg tablet 800 mg PO Q8H PRNQty: 60 3RF Patient Comments: pt reports not taking gabapentin 600 mg tablet 1,200 mg DAILY Patient Comments: TAKE TWO TABLETS BY MOUTH EVERY DAY trazodone 50 mg tablet 100 mg DAILY Patient Comments: TKAE 1-2 TABLETS BY MOUTH AT NIGHT OF SLEEP STUDY NEEDED Discharge Instructions Instructions: Dizziness (ED) Additional Instructions: Keep your appoint with your primary care provider for reassessment. Please make sure that you mention to them that there was some abnormal CT findings that may suggest multiple sclerosis but that MRI is needed for further investigation and accurate diagnosis. If you develop any new or significant worsening of symptoms feel free to return the emergency department immediately for reassessment and further testing or treatment as needed. Otherwise continue to take your normal daily medications as prescribed Referrals: Bunny Horne [Primary Care Provider] - Discharge Data Discharge Date/Time-TO BE ENTERED AT DEPARTURE: 02/24/23 13:18 Medical Decision Making Patient presenting to the emergency department for chief complaint of dizziness, intermittent slurred speech, brain fog, and intermittent blurry vision. He states that these have been going on for 2 weeks with slight increasing of symptoms over the last 2 to 3 days. Patient has history of of Jimenez, type 2 diabetes that is controlled. Physical exam is unremarkable with no acute neurological or cardiac findings noted. Vital signs are stable with no abnormalities noted. We will plan on checking labs and CT imaging. I am slightly concerned about MS given patient's age and symptoms but unfortunately MRIs not available on weekends so we will proceed with emergent work-up. Review of labs show an unremarkable CBC CMP, normal TSH, trace ketones in urine otherwise normal urinalysis. Reviewed CT imaging along with radiologist interpretation that shows nonspecific findings that could be MS. They did recommend MRI imaging of the brain. Discussed this with patient and patient states that he has a follow-up already scheduled with his primary care provider on Saturday. I recommended that patient mention this to primary care provider so that they could order an MRI on an outpatient basis and have appropriate follow- up after results have been received. At this time otherwise patient is requesting discharge which I feel is appropriate. After discussion of diagnosis and plan of care patient has no further needs, questions, or concerns and states clear understanding to return to the emergency department for any worsening symptoms. This documentation was generated using cisimpleation system, please disregard any oddities of phrase or misspellings. Imaging Data Radiologic Study: Radiologist's impression: Exam(s) PROCEDURE INFORMATION: Exam: CT Head Without Contrast Exam date and time: 02/24/2023 12:00 PM Age: 37 years old Clinical indication: Other: Dizziness, headache TECHNIQUE: Imaging protocol: Computed tomography of the head without contrast. COMPARISON: No relevant prior studies available. FINDINGS: Brain: Small ovoid low attenuating lesions in the periventricular white matter. These are nonspecific findings. This can be seen with small-vessel ischemic change however a demyelinating process such as multiple sclerosis could have a similar appearance. MRI is recommended for better evaluation Cerebral ventricles: No ventriculomegaly. Paranasal sinuses: Visualized sinuses are unremarkable. No fluid levels. Mastoid air cells: Visualized mastoid air cells are well aerated. Bones/joints: Unremarkable. No acute fracture. Soft tissues: Unremarkable. IMPRESSION: There are small ovoid shaped low attenuating lesions in the periventricular white matter. These are nonspecific finding however can be seen in demyelinating process such as multiple sclerosis. MRI of the brain is recommended for better evaluation Lab Data Lab results reviewed: Yes I reviewed the patient's lab results. HPI General Mode of arrival: ambulatory . Date/Time Provider Initiated Documentation: 02/24/23 10:42 . Limitations to Documentation: no limitations . Information obtained by: patient and RN notes reviewed . History of Present Illness 37 year old M presents to the emergency department with the chief complaint of Dizziness, brain fog, described as moderate, Patient started experiencing this week(s) (2) and it has been intermittent. No relieving factors improve symptom(s), No exacerbating factors reported . Patient did receive the following treatments prior to arrival, none Related Data Home Medications Medication Instructions Recorded Confirmed Ketoconazole 15 gm topical PRN 07/30/17 07/20/20 clobetasol-emollient 0.05 % 15 gm topical DIRECTED 07/30/17 01/17/22 topical cream citalopram 20 mg tablet 40 mg PO DAILY 08/26/19 01/17/22 albuterol sulfate 90 mcg/actuation 2 puff inhalation Q6H PRN 01/15/20 01/17/22 aerosol inhaler (ProAir HFA) ibuprofen 800 mg tablet 800 mg PO Q8H PRN #60 tabs 07/04/20 01/17/22 cyclobenzaprine 5 mg tablet 5 mg PO TID PRN #14 tabs 01/17/22 gabapentin 600 mg tablet 1,200 tab PO HS 01/17/22 01/17/22 gabapentin 600 mg tablet 1,200 mg DAILY 02/24/23 02/24/23 trazodone 50 mg tablet 100 mg DAILY 02/24/23 02/24/23 Previous Rx's Medication Instructions Recorded ibuprofen 800 mg tablet 800 mg PO Q8H PRN #60 tabs 07/04/20 cyclobenzaprine 5 mg tablet 5 mg PO TID PRN #14 tabs 01/17/22 Allergies Allergy/AdvReac Type Severity Reaction Status Date / Time buprenorphine HCl Allergy Intermediate vomiting Verified 02/24/23 10:37 [From Suboxone] hives diarrhea hallucination naloxone HCl [From Suboxone] Allergy Intermediate vomiting Verified 02/24/23 10:37 hives diarrhea hallucination sertraline Allergy Mild unknown Verified 02/24/23 10:37 shellfish derived Allergy Swelling/Ed Verified 02/24/23 10:37 miguel zolmitriptan [From Zomig] AdvReac Severe Severe Verified 02/24/23 10:37 headache Ring of fire around my head propranolol [From Inderal LA] AdvReac Intermediate insomnia Verified 02/24/23 10:37 Sulfa (Sulfonamide AdvReac Intermediate Nausea Verified 02/24/23 10:37 Antibiotics) General Stated Complaint: Dizzy/Sync MASOOD: 3 Review of Systems Constitutional Constitutional: Denies chills, Reports fatigue, Denies fever(s), Reports headache(s), Reports malaise and Denies weakness Eyes Eyes: Reports blurry vision (Intermittently) ENT Ears, Nose, Mouth, and Throat: Reports change in voice, Reports dizziness, Reports headache(s), Denies nasal congestion, Denies disequilibrium and Denies sore throat Cardiovascular Cardiovascular: Denies chest pain, Denies syncope and Denies dyspnea Respiratory Respiratory: Denies cough and Denies dyspnea Gastrointestinal Gastrointestinal: Denies abdominal pain, Denies nausea and Denies vomiting Musculoskeletal Musculoskeletal: Denies myalgias, Denies muscle weakness, Denies numbness and Denies tingling Integumentary/Breasts Skin/Breast: Denies rash Neurologic Neurologic: Reports as per HPI, Denies abnormal movements, Reports confusion, Reports dizziness, Denies syncope, Reports headache(s), Denies numbness, Denies tingling, Denies disequilibrium and Denies weakness Psychiatric Psychiatric: Reports confusion Endocrine Endocrine: Reports fatigue PFSH All Active Problems (Updated 02/24/23 @ 13:02 by Eliazar Patel NP) Dizziness (Acute) Normal colonoscopy (Acute ~07/04/20) Bleeding hemorrhoids (Acute) JIMENEZ (nonalcoholic steatohepatitis) (Acute) Foot fracture (Acute) Back pain (Acute) Fall (Acute) Spermatocele (Acute) Hemorrhoid (Acute) Diarrhea (Acute) Blood in stool (Acute) Family history of Crohn's disease (Acute) Rectal or anal pain (Acute) Abdominal pain (Acute) Diabetes type 2, controlled (Acute) pt. states he no longer has this Obstructive sleep apnea (Chronic) Medical History Colonoscopy planned Depression Eczema Erectile dysfunction Fatigue Hypertension Migraine Obesity, Class III, BMI 40-49.9 (morbid obesity) Opiate abuse, episodic Remote history, on methadone x10 years recurrent gi bleed Sleep apnea Swelling of right lower extremity Tobacco abuse Wheezing Surgical History Colonoscopy - [facility] 2009- normal 07/04/20 - History of colonoscopy (~07/04/20) Family History Grandmother No problems noted. Other Crohn's colitis Social History Smoking/Tobacco Use Status: Former Tobacco Use Quit Date: 07/29/14 Smoking risk assessment performed?: Yes Alcohol Intake: former Drug use: Occasionally Substance use type: marijuana Do you feel safe at home: Yes Do you feel safe in your relationship?: Yes Exam Const General: cooperative, healthy appearing, no acute distress and well groomed Orientation: alert, awake and oriented x3 HENMT Head: normal to inspection Ears: hearing grossly normal bilaterally and TM's normal bilaterally Mouth: oral mucosae normal and moist mucous membranes Throat: posterior oropharynx normal Eyes Visual Beckman: normal visual beckman by confrontation Alignment and Position: alignment normal Periorbital: periorbital findings normal Eyelids: eyelids normal Sclera: sclerae normal Cornea: corneas normal Pupils: PERRL EOM: EOM intact bilaterally Neck Neck: normal visual inspection, full ROM, no lymphadenopathy and no meningeal signs Resp Effort & Inspection: normal respiratory effort and able to speak in complete sentences Auscultation: clear to auscultation bilaterally Cardio Rate: regular rate Rhythm: regular rhythm Heart Sounds: S1 normal and S2 normal Neuro General: patient alert, patient awake, patient oriented x3, gait normal, tone normal, moves all extremities, CN's II-XI intact bilaterally and not confused Cognition: normal cognition Speech: speech normal Motor: muscle tone normal throughout, strength 5/5 throughout, no pronator drift, no movement abnormalities noted and no fasciculations Sensory Exam: no sensory deficits noted Coordination: [id number] test normal, Romberg test normal, Does not sway with eyes open, rapid alternating movement UE normal and rapid alternating movement LE normal Course Vital Signs Vital signs: Vital Signs Pulse 74 02/24/23 10:30 Respiratory Rate 16 02/24/23 10:30 Blood Pressure 121/79 02/24/23 10:30 Pulse Oximetry 100 02/24/23 10:30 Temperature 36.5 C 02/24/23 10:45 Temperature Source Tympanic 02/24/23 10:45 Pulse 59 L 02/24/23 12:17 Pulse 69 02/24/23 11:50 Respiratory Rate 15 02/24/23 11:56 Respiratory Effort Normal 02/24/23 11:56 Respiratory Depth Normal 02/24/23 11:56 Respiratory Pattern Normal 02/24/23 11:56 Blood Pressure 107/56 L 02/24/23 12:17 Blood Pressure Mean 69 02/24/23 12:17 Blood Pressure Position Supine 02/24/23 10:30 Pulse Oximetry 96 02/24/23 12:20 Lab/Test Results Lab/Test Results: Laboratory Tests Range/Units 02/24/23 02/24/23 02/24/23 11:28 11:28 12:04 WBC (4.4-10.8) 10^3/uL 7.04 RBC (4.36-5.78) 10^6/uL 5.26 Hgb (13.5-17.5) g/dL 16.3 Hct (40.0-50.0) % 47.3 MCV (80-95) fL 90 MCH (27.0-33.0) pg 31.0 MCHC (32.0-36.0) % 34.5 RDW (11.8-14.1) % 13.2 Plt Count (130-400) 10^3/uL 283 MPV (8.0-11.0) fL 9.9 Immature Gran % 0.1 Neutrophils % 64.3 Lymphocytes % 23.3 Monocytes % 9.8 Eosinophils % 1.6 Basophils % 0.9 Nucleated RBC % (0.0-0.3) % 0.0 Absolute Neutrophils (1.2-6.7) 10^3/uL 4.53 Absolute Lymphocytes (1.2-3.4) 10^3/uL 1.64 Absolute Monocytes (0.1-0.8) 10^3/uL 0.69 Absolute Eosinophils (0.0-0.7) 10^3/uL 0.11 Absolute Basophils (0.0-0.2) 10^3/uL 0.06 Sodium (136-145) mmol/L 140 Potassium (3.5-5.1) mmol/L 4.3 Chloride (98-107) mmol/L 103 Carbon Dioxide (21.0-32.0) mmol/L 30.8 Anion Gap (3-11) mmol/L 6.2 BUN (7-18) mg/dL 12 Creatinine (0.70-1.30) mg/dL 1.1 Est GFR (CKD-EPI 2020) (mL/min/1.73m2) 89.22 Glucose (74-106) mg/dL 91 Calcium (8.5-10.1) mg/dL 9.2 Magnesium (1.8-2.4) mg/dL 2.0 Total Bilirubin (0.2-1.0) mg/dL 0.9 AST (15-37) U/L 18 ALT (16-63) U/L 34 Alkaline Phosphatase (46-116) U/L 46 Total Protein (6.4-8.2) g/dL 7.7 Albumin (3.4-5.0) g/dL 4.1 TSH (0.36-3.74) uIU/mL 0.64 Urine Color (Yellow) Yellow Urine Clarity (Clear) Clear Urine pH (5-8) 5.5 Ur Specific [place] (1.005-1.025) 1.025 Urine Protein (Negative) mg/dL Negative Urine Ketones (Negative) mg/dL Trace H Urine Blood (Negative) Negative Urine Nitrite (Negative) Negative Urine Bilirubin (Negative) Negative Urine Urobilinogen (Up to 0.2) mg/dL 0.2 Ur Leukocyte Esterase (Negative) Negative Urine Glucose (Negative) mg/dL Negative
== END 2023-02-24 13:18 | disposition home or self-care (01) ==
PROVIDERS: Emergency Provider Nurse Practitioner Family; PCP Physician Assistant
DX: R42 Dizziness and giddiness (principal); I10 Essential (primary) hypertension
CPT/HCPCS: 36415; 80053; 93005; 99284; 70450; 81003; 83735; 84443; 85025; 93010; 99283

== ENCOUNTER 2023-03-04 12:23 | Observation (INO) | payer MEDICAID, SELFPAY ==
[2023-03-04] VITALS (27 sets, daily range): BP systolic 113–151; BP diastolic 61–87; PULSE 64–105; RESP 13–20; TEMP 36.4–37; O2SAT 93–98
--- NOTE | 2023-03-04 12:15 | RT.EKG_ITS ---
APPROVED REPORT Exam: Resting ECG Reason for Exam: Dizziness Patient Location: E HR:94 bpm ECG Measurements Heart Rate 94 AXIS OK 161 P 57 QRSd 90 QRS 7 QT 332 T 23 QTc 415 Conclusion Sinus rhythm...normal P axis, V-rate 60- 99
--- NOTE | 2023-03-04 12:45 | DI.MRI_ITS ---
Exam(s) MR BRAIN WO/W EXAM: MR BRAIN WO/W CLINICAL HISTORY: dizzzness, concern for MS. TECHNIQUE: Multiplanar multisequence MRI of the brain was performed. CONTRAST MATERIAL: IV Contrast: 20 ML of Dotarem contrast administered. COMPARISON: CT CT HEAD WO from 02/24/2023 FINDINGS: VENTRICLES AND EXTRA AXIAL SPACES: Normal in size and morphology for the patient's age. HEMORRHAGE: None. CEREBRAL PARENCHYMA: Multiple abnormal foci of high signal in the white matter in the periventricular location with a pattern highly suspicious for multiple sclerosis. Additional scattered foci are see n in left frontal, bilateral temporal lobes as well as left cerebellum. No evidence of associated en hancement. No focus of restricted diffusion to suggest acute infarct. No space-occupying lesion iden tified. MIDLINE SHIFT: None. BRAINSTEM/CEREBELLUM: Normal. CALVARIUM: Normal. ENHANCEMENT: No suspicious enhancement identified. VISUALIZED PARANASAL SINUSES/MASTOIDS: Clear. IMPRESSION: Multiple abnormal high signal foci in the periventricular white matter suspicious for multiple sclero sis. No enhancing lesions are seen. Findings called to the emergency department provider 4:50 p.m.. DATA REPOSITORY:
[2023-03-04 13:13] LABS: Abs Immature Grans 0.01 10^3/uL (0.0-0.06); Absolute Basophil Count 0.07 10^3/uL (0.0-0.2); Absolute Eosinophil Count 0.05 10^3/uL (0.0-0.7); Absolute Lymphocyte Count 1.47 10^3/uL (1.2-3.4); Absolute Monocyte Count 0.82 10^3/uL (0.1-0.8); Basophils % 1.3; Eosinophils % 0.9; HCT 48.6 % (40.0-50.0); HGB 16.6 g/dL (13.5-17.5); Immature Grans % 0.2; Lymphocytes % 27.1; MCH 29.9 pg (27.0-33.0); MCHC 34.2 % (32.0-36.0); MCV 87 fL (80-95); MPV 9.6 fL (8.0-11.0); Monocytes % 15.1; Neutrophils % 55.4; Platelet Count 248 10^3/uL (130-400); RBC 5.56 10^6/uL (4.36-5.78); RDW 13.1 % (11.8-14.1); RDW-SD 42.2 fL; WBC 5.42 10^3/uL (4.4-10.8)
--- NOTE | 2023-03-04 13:14 | NUR.NOTE ---
Nursing Note: PT RANG, IV INFILTRATE NOTED, FLUIDS STOPPED, IV REMOVED, ICE PACK APPLIED, PROVIDER AWARE, IN TO SEE PT .
[2023-03-04 13:16] LABS: Bilirubin Small (Negative); Blood Negative (Negative); Clarity Cloudy (Clear); Glucose Negative (Negative); Ketones 15 mg/dL (Negative); Leukocyte Esterase Negative (Negative); Nitrite Negative (Negative); Specific Gravity >= 1.030 (1.005-1.025); Urobilinogen 0.2 mg/dL (Up to 0.2)
[2023-03-04 13:26] LABS: INR 1.1 (0.9-1.1); PTT Activated 34.8 sec (21.5-31.9); Prothrombin Time 10.7 sec (9.3-11.0)
[2023-03-04 13:29] LABS: Bacteria Few HPF (Negative); C & S Indicated? No; Casts Negative LPF (Negative); Crystals Negative HPF (Negative); Epithelial Cells Negative HPF (Negative); Mucus Heavy (Negative); Other Cells Negative (Negative); RBC Negative HPF (0-2); WBC 0-2 HPF (0-5)
[2023-03-04 13:37] LABS: ALT 65 U/L (16-63); AST 37 U/L (15-37); Albumin 3.9 g/dL (3.4-5.0); Alkaline Phosphatase 64 U/L (46-116); Anion Gap 9.2 mmol/L (3-11); BUN 12 mg/dL (7-18); Bilirubin, Total 1.2 mg/dL (0.2-1.0); CO2 26.8 mmol/L (21.0-32.0); Calcium 9.1 mg/dL (8.5-10.1); Chloride 104 mmol/L (98-107); Estimated GFR 100.03 (mL/min/1.73m2); Glucose 99 mg/dL (74-106); Magnesium 2.1 mg/dL (1.8-2.4); Potassium 3.8 mmol/L (3.5-5.1); Sodium 140 mmol/L (136-145); TSH 0.75 uIU/mL (0.36-3.74); Total Protein 8.1 g/dL (6.4-8.2)
[2023-03-04] MEDS: Normal Saline 1,000 ML 1000 ML IV (13:38)
[2023-03-04 13:39] LABS: Troponin I 155 ng/L (<or=60)
--- NOTE | 2023-03-04 14:43 | ED.GENADUL_ITS ---
Discharge Plan Disposition Patient Disposition: Admit to [facility] Condition: Stable Discharge Details Clinical Impression: Multiple sclerosis Admit Date/Time: 03/04/23 17:12 Admit Provider: Kobe Arango Attending Provider: Kobe Arango Primary Care Provider: Bunny Horne ED Provider: Umesh Pettit Discharge Data Discharge Date/Time-TO BE ENTERED AT DEPARTURE: 03/04/23 18:32 Medical Decision Making <Eliazar Patel NP - Last Filed: 03/08/23 10:09> Patient presenting to the emergency department for chief complaint of dizziness, general weakness, fatigue, slight headache and neck pain. This has been going on for greater than 10 days, I did see patient approximately 1 week ago and he did have CT imaging at that time which did reveal some concerning findings for possible MS. Patient states that he is pending an MRI with his primary care provider but has not had one performed yet. Patient states just progressive symptoms but over the past couple days did have some fever and chills. Physical exam is the same as last visit which I find no focal neurological findings, no nuchal rigidity, otherwise benign exam. Given abnormal CT imaging and progressive symptoms will perform MRI in the emergency department. EKG was also performed along with labs. Please see physician interpretation for full interpretation of EKG but upon my review patient is in sinus rhythm with no findings to suggest acute ischemia or STEMI. Review of labs show a Overall normal CBC with only slight elevation of monocytes, CMP shows slight elevation of total bilirubin, ALT of 65 which again is only slightly elevated. TSH is within normal range. Troponin did show slightly positive at 155. Reassessed patient again and patient denies any cardiac or respiratory symptoms. Will trend this out but I admit this does not seem to clinically correlate with patient's symptoms. Patient signed out pending MRI imaging and continued monitoring of troponin. Lab Data Lab results reviewed: Yes I reviewed the patient's lab results. <Umesh Pettit MD - Last Filed: 03/04/23 19:23> Medical Records Medical records reviewed: Yes I reviewed the patient's medical records. Imaging Data Radiologic Study: Attestation: I personally reviewed and interpreted this imaging study as follows: Imaging: MRI Radiologist's impression: Patient Name: Keith Mascorro Unit #: [id number] Loc: ER ? Ordering Provider:? Eliazar Patel NP Status: REG ER ? Primary Care Provider: Bunny Horne Date of Exam: 03/04/23 Sex: M ? Admission Date: 03/04/23? : 1985 ? Age: 37 ? Exam(s) MR BRAIN WO/W EXAM: ? MR BRAIN WO/W CLINICAL HISTORY: ? dizzzness, concern for MS.? TECHNIQUE:? Multiplanar multisequence MRI of the brain was performed. CONTRAST MATERIAL:? IV Contrast: 20 ML of Dotarem contrast administered. COMPARISON:? CT CT HEAD WO from 02/24/2023 FINDINGS: VENTRICLES AND EXTRA AXIAL SPACES: Normal in size and morphology for the patient's age. HEMORRHAGE: None. CEREBRAL PARENCHYMA: Multiple abnormal foci of high signal in the white matter in the periventricular location with a pattern highly suspicious for multiple sclerosis.? Additional scattered foci are seen in left frontal, bilateral temporal lobes as well as left cerebellum.? No evidence of associated enhancement.? No focus of restricted diffusion to suggest acute infarct. No space-occupying lesion identified. MIDLINE SHIFT: None. BRAINSTEM/CEREBELLUM: Normal. CALVARIUM: Normal. ENHANCEMENT: No suspicious enhancement identified. VISUALIZED PARANASAL SINUSES/MASTOIDS: Clear. IMPRESSION: Multiple abnormal high signal foci in the periventricular white matter suspicious for multiple sclerosis.? No enhancing lesions are seen. Findings called to the emergency department provider 4:50 p.m.. DATA REPOSITORY:? Ordered By:? Eliazar Patel NP CC: ? Dictated By: Shantell Juarez M.D. ? 03/04/231651 ? <Electronically signed by Shantell Juarez M.D. in [place]> ? 03/04/231651 Transcribed By: Shantell Juarez?? HPI <Eliazar Patel NP - Last Filed: 03/08/23 10:09> General Mode of arrival: ambulatory . Date/Time Provider Initiated Documentation: 03/04/23 12:46 . Limitations to Documentation: no limitations . Information obtained by: patient and RN notes reviewed . History of Present Illness 37 year old M presents to the emergency department with the chief complaint of Dizziness, headache, described as moderate, Quality is described as aching, and is localized to the neck. Patient reports no radiation. Patient started experiencing this day(s) (10) and it has been constant. No relieving factors improve symptom(s), No exacerbating factors reported . Patient did receive the following treatments prior to arrival, none Related Data Home Medications Medication Instructions Recorded Confirmed Ketoconazole 15 gm topical PRN 07/30/17 07/20/20 clobetasol-emollient 0.05 % 15 gm topical DIRECTED 07/30/17 03/04/23 topical cream albuterol sulfate 90 mcg/actuation 2 puff inhalation Q6H PRN 01/15/20 03/04/23 aerosol inhaler (ProAir HFA) ibuprofen 800 mg tablet 800 mg PO Q8H PRN #60 tabs 07/04/20 03/04/23 cyclobenzaprine 5 mg tablet 5 mg PO TID PRN #14 tabs 01/17/22 gabapentin 600 mg tablet 1,200 tab PO HS 01/17/22 03/04/23 trazodone 50 mg tablet 100 mg DAILY 02/24/23 03/04/23 methylprednisolone 32 mg tablet 32 mg PO DAILY #93 tabs 03/05/23 ondansetron 4 mg disintegrating 4 mg PO Q8H PRN PRN #20 tabs 03/05/23 tablet psyllium packet PO DAILY 03/05/23 Previous Rx's Medication Instructions Recorded ibuprofen 800 mg tablet 800 mg PO Q8H PRN #60 tabs 07/04/20 cyclobenzaprine 5 mg tablet 5 mg PO TID PRN #14 tabs 01/17/22 methylprednisolone 32 mg tablet 32 mg PO DAILY #93 tabs 03/05/23 ondansetron 4 mg disintegrating 4 mg PO Q8H PRN PRN #20 tabs 03/05/23 tablet Allergies Allergy/AdvReac Type Severity Reaction Status Date / Time buprenorphine HCl Allergy Intermediate vomiting Verified 03/04/23 12:31 [From Suboxone] hives diarrhea hallucination naloxone HCl [From Suboxone] Allergy Intermediate vomiting Verified 03/04/23 12:31 hives diarrhea hallucination sertraline Allergy Mild unknown Verified 03/04/23 12:31 shellfish derived Allergy Swelling/Ed Verified 03/04/23 12:31 miguel zolmitriptan [From Zomig] AdvReac Severe Severe Verified 03/04/23 12:31 headache Ring of fire around my head propranolol [From Inderal LA] AdvReac Intermediate insomnia Verified 03/04/23 12:31 Sulfa (Sulfonamide AdvReac Intermediate Nausea Verified 03/04/23 12:31 Antibiotics) General Stated Complaint: Dizzy/Sync MASOOD: 3 Review of Systems <Eliazar Patel NP - Last Filed: 03/08/23 10:09> Constitutional Constitutional: Reports chills, Reports fever(s), Reports headache(s), Reports night sweats and Reports weakness (General nonfocal) Eyes Eyes: Reports blurry vision ENT Ears, Nose, Mouth, and Throat: Reports dizziness, Reports headache(s), Denies nasal congestion and Denies sore throat Cardiovascular Cardiovascular: Denies chest pain, Denies syncope and Denies dyspnea Respiratory Respiratory: Denies cough and Denies dyspnea Gastrointestinal Gastrointestinal: Denies abdominal pain, Denies nausea and Denies vomiting Musculoskeletal Musculoskeletal: Denies back pain, Reports muscle weakness (Generalized nonfocal) and Denies tingling Integumentary/Breasts Skin/Breast: Denies rash Neurologic Neurologic: Reports as per HPI, Denies confusion, Reports dizziness, Denies syncope, Reports headache(s), Denies tingling and Reports weakness (General nonfocal) Psychiatric Psychiatric: Denies confusion PFSH <Eliazar Patel NP - Last Filed: 03/08/23 10:09> All Active Problems (Updated 03/06/23 @ 00:14 by EBEN SALEH) Neck pain (Acute) Vertigo (Acute) Headache (Acute) Restless leg syndrome (Acute) Dizziness (Acute) Normal colonoscopy (Acute ~07/04/20) Bleeding hemorrhoids (Acute) ROCK (nonalcoholic steatohepatitis) (Acute) Foot fracture (Acute) Back pain (Acute) Fall (Acute) Spermatocele (Acute) Hemorrhoid (Acute) Diarrhea (Acute) Blood in stool (Acute) Family history of Crohn's disease (Acute) Rectal or anal pain (Acute) Abdominal pain (Acute) Diabetes type 2, controlled (Acute) pt. states he no longer has this Obstructive sleep apnea (Chronic) Medical History Colonoscopy planned Depression Eczema Erectile dysfunction Fatigue Hypertension Migraine Obesity, Class III, BMI 40-49.9 (morbid obesity) Opiate abuse, episodic Remote history, on methadone x10 years recurrent gi bleed Sleep apnea Swelling of right lower extremity Tobacco abuse Wheezing Surgical History Colonoscopy - MAC 2009- normal 07/04/20 - History of colonoscopy (~07/04/20) Family History Grandmother No problems noted. Other Crohn's colitis Social History Smoking/Tobacco Use Status: Former Tobacco Use Quit Date: 07/29/14 Smoking risk assessment performed?: Yes Alcohol Intake: former Drug use: Daily Substance use type: marijuana Housing: apartment Do you feel safe at home: Yes Do you feel safe in your relationship?: Yes Exam <Eliazar Patel NP - Last Filed: 03/08/23 10:09> Const General: cooperative, healthy appearing, no acute distress and well groomed Orientation: alert, awake and oriented x3 HENMT Head: normal to inspection Ears: hearing grossly normal bilaterally and TM's normal bilaterally Mouth: oral mucosae normal and moist mucous membranes Throat: posterior oropharynx normal Eyes Visual Beckman: normal visual beckman by confrontation Alignment and Position: alignment normal Periorbital: periorbital findings normal Eyelids: eyelids normal Sclera: sclerae normal Cornea: corneas normal Pupils: PERRL EOM: EOM intact bilaterally Neck Neck: normal visual inspection, full ROM, no lymphadenopathy and no meningeal signs Resp Effort & Inspection: normal respiratory effort and able to speak in complete sentences Auscultation: clear to auscultation bilaterally Cardio Rate: regular rate Rhythm: regular rhythm Heart Sounds: S1 normal and S2 normal Neuro General: patient alert, patient awake, patient oriented x3, gait normal, tone normal, moves all extremities, CN's II-XI intact bilaterally and not confused Cognition: normal cognition Speech: speech normal Motor: muscle tone normal throughout, strength 5/5 throughout, no pronator drift, no movement abnormalities noted and no fasciculations Sensory Exam: no sensory deficits noted Coordination: [id number] test normal, Romberg test normal, Does not sway with eyes open, rapid alternating movement UE normal and rapid alternating movement LE normal Course <Eliazar Patel, ROOM SERVER - Last Filed: 03/08/23 10:09> Vital Signs Vital signs: Vital Signs Temperature 37.0 C 03/04/23 12:28 Pulse 105 H 03/04/23 12:28 Respiratory Rate 20 03/04/23 12:28 Blood Pressure 151/81 H 03/04/23 12:28 Pulse Oximetry 98 03/04/23 12:28 Temperature 37.0 C 03/04/23 12:28 Temperature Source Tympanic 03/04/23 12:28 Pulse 88 03/04/23 13:36 Respiratory Rate 18 03/04/23 13:36 Respiratory Effort Normal 03/04/23 12:50 Respiratory Depth Normal 03/04/23 12:50 Respiratory Pattern Normal 03/04/23 12:50 Blood Pressure 116/61 03/04/23 13:36 Blood Pressure Position Sitting 03/04/23 12:28 Pulse Oximetry 96 03/04/23 13:36 Oxygen Delivery Method Room Air 03/04/23 13:36 Oxygen Flow Rate 0 03/04/23 13:36 Pain Level 4 03/04/23 12:28 Lab/Test Results Lab/Test Results: Laboratory Tests Range/Units 03/04/23 03/04/23 03/04/23 12:50 12:50 12:50 WBC (4.4-10.8) 10^3/uL 5.42 RBC (4.36-5.78) 10^6/uL 5.56 Hgb (13.5-17.5) g/dL 16.6 Hct (40.0-50.0) % 48.6 MCV (80-95) fL 87 MCH (27.0-33.0) pg 29.9 MCHC (32.0-36.0) % 34.2 RDW (11.8-14.1) % 13.1 Plt Count (130-400) 10^3/uL 248 MPV (8.0-11.0) fL 9.6 Immature Gran % 0.2 Neutrophils % 55.4 Lymphocytes % 27.1 Monocytes % 15.1 Eosinophils % 0.9 Basophils % 1.3 Nucleated RBC % (0.0-0.3) % 0.0 Absolute Neutrophils (1.2-6.7) 10^3/uL 3.00 Absolute Lymphocytes (1.2-3.4) 10^3/uL 1.47 Absolute Monocytes (0.1-0.8) 10^3/uL 0.82 H Absolute Eosinophils (0.0-0.7) 10^3/uL 0.05 Absolute Basophils (0.0-0.2) 10^3/uL 0.07 PT (9.3-11.0) sec 10.7 INR (0.9-1.1) 1.1 APTT (21.5-31.9) sec 34.8 H Sodium (136-145) mmol/L 140 Potassium (3.5-5.1) mmol/L 3.8 Chloride (98-107) mmol/L 104 Carbon Dioxide (21.0-32.0) mmol/L 26.8 Anion Gap (3-11) mmol/L 9.2 BUN (7-18) mg/dL 12 Creatinine (0.70-1.30) mg/dL 1.0 Est GFR (CKD-EPI 2020) (mL/min/1.73m2) 100.03 Glucose (74-106) mg/dL 99 Calcium (8.5-10.1) mg/dL 9.1 Magnesium (1.8-2.4) mg/dL 2.1 Total Bilirubin (0.2-1.0) mg/dL 1.2 H AST (15-37) U/L 37 ALT (16-63) U/L 65 H Alkaline Phosphatase (46-116) U/L 64 Troponin I (<or=60) ng/L 155 H* Total Protein (6.4-8.2) g/dL 8.1 Albumin (3.4-5.0) g/dL 3.9 TSH (0.36-3.74) uIU/mL 0.75 Urine Color (Yellow) Urine Clarity (Clear) Urine pH (5-8) Ur Specific [place] (1.005-1.025) Urine Protein (Negative) mg/dL Urine Ketones (Negative) mg/dL Urine Blood (Negative) Urine Nitrite (Negative) Urine Bilirubin (Negative) Urine Urobilinogen (Up to 0.2) mg/dL Ur Leukocyte Esterase (Negative) Urine RBC (0-2) HPF Urine WBC (0-5) HPF Ur Epithelial Cells (Negative) HPF Urine Crystals (Negative) HPF Urine Bacteria (Negative) HPF Urine Casts (Negative) LPF Urine Mucus (Negative) Urine Other (Negative) Ur Culture Indicated? Urine Glucose (Negative) mg/dL Range/Units 03/04/23 13:05 WBC (4.4-10.8) 10^3/uL RBC (4.36-5.78) 10^6/uL Hgb (13.5-17.5) g/dL Hct (40.0-50.0) % MCV (80-95) fL MCH (27.0-33.0) pg MCHC (32.0-36.0) % RDW (11.8-14.1) % Plt Count (130-400) 10^3/uL MPV (8.0-11.0) fL Immature Gran % Neutrophils % Lymphocytes % Monocytes % Eosinophils % Basophils % Nucleated RBC % (0.0-0.3) % Absolute Neutrophils (1.2-6.7) 10^3/uL Absolute Lymphocytes (1.2-3.4) 10^3/uL Absolute Monocytes (0.1-0.8) 10^3/uL Absolute Eosinophils (0.0-0.7) 10^3/uL Absolute Basophils (0.0-0.2) 10^3/uL PT (9.3-11.0) sec INR (0.9-1.1) APTT (21.5-31.9) sec Sodium (136-145) mmol/L Potassium (3.5-5.1) mmol/L Chloride (98-107) mmol/L Carbon Dioxide (21.0-32.0) mmol/L Anion Gap (3-11) mmol/L BUN (7-18) mg/dL Creatinine (0.70-1.30) mg/dL Est GFR (CKD-EPI 2020) (mL/min/1.73m2) Glucose (74-106) mg/dL Calcium (8.5-10.1) mg/dL Magnesium (1.8-2.4) mg/dL Total Bilirubin (0.2-1.0) mg/dL AST (15-37) U/L ALT (16-63) U/L Alkaline Phosphatase (46-116) U/L Troponin I (<or=60) ng/L Total Protein (6.4-8.2) g/dL Albumin (3.4-5.0) g/dL TSH (0.36-3.74) uIU/mL Urine Color (Yellow) Yellow Urine Clarity (Clear) Cloudy Urine pH (5-8) 6.0 Ur Specific [place] (1.005-1.025) >= 1.030 H Urine Protein (Negative) mg/dL 100 H Urine Ketones (Negative) mg/dL 15 H Urine Blood (Negative) Negative Urine Nitrite (Negative) Negative Urine Bilirubin (Negative) Small H Urine Urobilinogen (Up to 0.2) mg/dL 0.2 Ur Leukocyte Esterase (Negative) Negative Urine RBC (0-2) HPF Negative Urine WBC (0-5) HPF 0-2 Ur Epithelial Cells (Negative) HPF Negative Urine Crystals (Negative) HPF Negative Urine Bacteria (Negative) HPF Few Urine Casts (Negative) LPF Negative Urine Mucus (Negative) Heavy Urine Other (Negative) Negative Ur Culture Indicated? No Urine Glucose (Negative) mg/dL Negative Sign Out <Eliazar Patel NP - Last Filed: 03/08/23 10:09> Sign Out Data: Sign Out Comment: Patient pending MRI results for suspected MS reassessment of elevated troponin and disposition as needed. Last updated by Eliazar Patel NP at 03/04/23 15:41
[2023-03-04 14:48] LABS: COVID-19 PCR Negative (Negative); Influenza A PCR Negative (Negative); Influenza B PCR Negative (Negative); RSV PCR Negative (Negative)
[2023-03-04 14:50] LABS: Source Nasopharynx
--- NOTE | 2023-03-04 15:22 | NUR.NOTE ---
Nursing Note: PT TO MRI VIA STRETCHER FOR ORDERED EXAM., NO NEW COMPLAINTS, VSS.
[2023-03-04] MEDS: Gadoterate meglumine 20 ML VIAL IVP (16:05)
--- NOTE | 2023-03-04 16:37 | NUR.NOTE ---
Nursing Note:PT RETURN FROM DI, NO NEW COMPLAINTS, REPEAT TROP. DRAWN & SENT TO LAB, VSS.
[2023-03-04 16:58] LABS: Troponin I 139 ng/L (<or=60)
--- NOTE | 2023-03-04 18:23 | HPE_ITS ---
Date of service: 03/04/23 Time of Service: 18:23 Assessment and Plan Assessment and plan (1) Multiple sclerosis: Status: Suspected Assessment and plan: New dizziness for 3 weeks, MRI - CEREBRAL PARENCHYMA: Multiple abnormal foci of high signal in the white matter in the periventricular location with a pattern highly suspicious for multiple sclerosis.? Additional scattered foci are seen in left frontal, bilateral temporal lobes as well as left cerebellum.? No evidence of associated enhancement.? No focus of restricted diffusion to suggest acute infarct. No space-occupying lesion identified. Neuro consult Solumedrol 1000 mg IV for 3-5d CD19/20, chronic hepatitis profile, HIV, VZV, immunoglobins, SANGEETA virus, TB,vitamin D MRI w/wo C&T spine Try meclizine for dizziness, low expectations it will help Ok to eat - reg diet (2) Dizziness: Status: Acute Assessment and plan: As above Meclizine prn - doubt it will help, but he can try if he would like to (3) Obstructive sleep apnea: Status: Chronic (4) Depression: Assessment and plan: Stable continue home citalopram (5) Restless leg syndrome: Status: Acute Assessment and plan: Continue home gabapentin & trazadone (6) Headache: Status: Acute Assessment and plan: tylenol as needed for headache (7) Elevated troponin: Status: Acute Assessment and plan: #1 155, #2 139, # 3 pending (8) Elevated ALT measurement: Status: Acute Assessment and plan: 65 History of Present Illness History of Present Illness Chief Complaint: Dizzy, headache Narrative: This is a 37 year old patient with no significant past medical history who was seen at the [facility] ED on 02/24 with complaint of dizziness, intermittent slurred speech, brain fog and intermittent blurred vision for about two weeks. He was discharged to home with findings on CT of the head revealing small ovoid shaped low attenuating lesions in the periventricularwhite matter. These are nonspecific finding however can be seen in demyelinating process such as multiple sclerosis. MRI of the brain was recommended for better evaluation, this was bit available until 03/05. Labs were unremarkable. Patient did not receive any treatment, was told to follow up with PC and was discharged to home. Today, , patient returned to the ED for continued dizziness and moderate, aching neck and headache. Labs unremarkable except troponin 155, with down trend to 139. Patient was given 1 litre of NS in the ED. He was not given any medication. Brain MRI revealing multiple abnormal foci of high signal in the white matter in the periventricular location with a pattern highly suspicious for multiple sclerosis.? Additional scattered foci are seen in left frontal, bilateral te mporal lobes as well as left cerebellum.? No evidence of associated enhancement.? No focus of restricted diffusion to suggest acute infarct. No space-occupying lesion identified. Patient is placed on observation status with a neurology consult has been placed for 03/05. Review of Systems All systems reviewed & are unremarkable except as noted in HPI and below Constitutional Constitutional: Reports chills, Reports fever(s), Reports headache(s), Reports night sweats and Reports weakness (General nonfocal) Eyes Eyes: Reports blurry vision ENT Ears, Nose, Mouth, and Throat: Reports dizziness, Reports headache(s), Denies nasal congestion and Denies sore throat Cardiovascular Cardiovascular: Denies chest pain, Denies syncope and Denies dyspnea Respiratory Respiratory: Denies cough and Denies dyspnea Gastrointestinal Gastrointestinal: Denies abdominal pain, Denies nausea and Denies vomiting Musculoskeletal Musculoskeletal: Denies back pain, Reports muscle weakness (Generalized nonfocal) and Denies tingling Integumentary/Breasts Skin/Breast: Denies rash Neurologic Neurologic: Reports as per HPI, Denies confusion, Reports dizziness, Denies syncope, Reports headache(s), Denies tingling and Reports weakness (General nonfocal) Psychiatric Psychiatric: Denies confusion PFSH All Active Problems (Updated 03/04/23 @ 20:00 by Meghana Mccormack NP) Elevated ALT measurement (Acute) Elevated troponin (Acute) Headache (Acute) Restless leg syndrome (Acute) Dizziness (Acute) Normal colonoscopy (Acute ~07/04/20) Bleeding hemorrhoids (Acute) ROCK (nonalcoholic steatohepatitis) (Acute) Foot fracture (Acute) Back pain (Acute) Fall (Acute) Spermatocele (Acute) Hemorrhoid (Acute) Diarrhea (Acute) Blood in stool (Acute) Family history of Crohn's disease (Acute) Rectal or anal pain (Acute) Abdominal pain (Acute) Diabetes type 2, controlled (Acute) pt. states he no longer has this Obstructive sleep apnea (Chronic) Medical History Colonoscopy planned Depression Eczema Erectile dysfunction Fatigue Hypertension Migraine Obesity, Class III, BMI 40-49.9 (morbid obesity) Opiate abuse, episodic Remote history, on methadone x10 years recurrent gi bleed Sleep apnea Swelling of right lower extremity Tobacco abuse Wheezing Surgical History Colonoscopy - MAC 2009- normal 07/04/20 - History of colonoscopy (~07/04/20) Family History Grandmother No problems noted. Other Crohn's colitis Social History Smoking/Tobacco Use Status: Former Tobacco Use Quit Date: 07/29/14 Smoking risk assessment performed?: Yes Alcohol Intake: former Drug use: Daily Substance use type: marijuana Housing: apartment Do you feel safe at home: Yes Do you feel safe in your relationship?: Yes Meds Allergies and Home Medications Allergies Allergy/AdvReac Type Severity Reaction Status Date / Time buprenorphine HCl Allergy Intermediate vomiting Verified 03/04/23 12:31 [From Suboxone] hives diarrhea hallucination naloxone HCl [From Suboxone] Allergy Intermediate vomiting Verified 03/04/23 12:31 hives diarrhea hallucination sertraline Allergy Mild unknown Verified 03/04/23 12:31 shellfish derived Allergy Swelling/Ed Verified 03/04/23 12:31 miguel zolmitriptan [From Zomig] AdvReac Severe Severe Verified 03/04/23 12:31 headache Ring of fire around my head propranolol [From Inderal LA] AdvReac Intermediate insomnia Verified 03/04/23 12:31 Sulfa (Sulfonamide AdvReac Intermediate Nausea Verified 03/04/23 12:31 Antibiotics) Home Medications Medication Instructions Recorded Confirmed Type Ketoconazole 15 gm topical PRN 07/30/17 07/20/20 History clobetasol-emollient 0.05 % 15 gm topical DIRECTED 07/30/17 03/04/23 History topical cream citalopram 20 mg tablet 40 mg PO DAILY 08/26/19 01/17/22 History albuterol sulfate 90 mcg/actuation 2 puff inhalation Q6H PRN 01/15/20 03/04/23 History aerosol inhaler (ProAir HFA) ibuprofen 800 mg tablet 800 mg PO Q8H PRN #60 tabs 07/04/20 03/04/23 Rx cyclobenzaprine 5 mg tablet 5 mg PO TID PRN #14 tabs 01/17/22 Rx gabapentin 600 mg tablet 1,200 tab PO HS 01/17/22 03/04/23 History trazodone 50 mg tablet 100 mg DAILY 02/24/23 03/04/23 History Exam Const General: cooperative, healthy appearing, no acute distress and well groomed Orientation: alert, awake and oriented x3 HENMT Head: normal to inspection Ears: hearing grossly normal bilaterally and TM's normal bilaterally Mouth: oral mucosae normal and moist mucous membranes Throat: posterior oropharynx normal Eyes Visual Beckman: normal visual beckman by confrontation Alignment and Position: alignment normal Periorbital: periorbital findings normal Eyelids: eyelids normal Sclera: sclerae normal Cornea: corneas normal Pupils: PERRL EOM: EOM intact bilaterally Neck Neck: normal visual inspection, full ROM, no lymphadenopathy and no meningeal signs Resp Effort & Inspection: normal respiratory effort and able to speak in complete sentences Auscultation: clear to auscultation bilaterally Cardio Rate: regular rate Rhythm: regular rhythm Heart Sounds: S1 normal and S2 normal Neuro General: patient alert, patient awake, patient oriented x3, gait normal, tone normal, moves all extremities, CN's II-XI intact bilaterally and not confused Cognition: normal cognition Speech: speech normal Motor: muscle tone normal throughout, strength 5/5 throughout, no pronator drift, no movement abnormalities noted and no fasciculations Sensory Exam: no sensory deficits noted Coordination: [id number] test normal, Romberg test normal, Does not sway with eyes open, rapid alternating movement UE normal and rapid alternating movement LE normal Results Labs 03/04/23 12:50 03/04/23 12:50 Labs: Laboratory Results - last 24 hr 03/04/23 03/04/23 03/04/23 12:50 12:50 12:50 WBC 5.42 RBC 5.56 Hgb 16.6 Hct 48.6 MCV 87 MCH 29.9 MCHC 34.2 RDW 13.1 Plt Count 248 MPV 9.6 Immature Gran % 0.2 Neutrophils % 55.4 Lymphocytes % 27.1 Monocytes % 15.1 Eosinophils % 0.9 Basophils % 1.3 Nucleated RBC % 0.0 Absolute Neutrophils 3.00 Absolute Lymphocytes 1.47 Absolute Monocytes 0.82 H Absolute Eosinophils 0.05 Absolute Basophils 0.07 PT 10.7 INR 1.1 APTT 34.8 H Sodium 140 Potassium 3.8 Chloride 104 Carbon Dioxide 26.8 Anion Gap 9.2 BUN 12 Creatinine 1.0 Est GFR (CKD-EPI 2020) 100.03 Glucose 99 Calcium 9.1 Magnesium 2.1 Total Bilirubin 1.2 H AST 37 ALT 65 H Alkaline Phosphatase 64 Troponin I 155 H* Total Protein 8.1 Albumin 3.9 TSH 0.75 Urine Color Urine Clarity Urine pH Ur Specific Institute Urine Protein Urine Ketones Urine Blood Urine Nitrite Urine Bilirubin Urine Urobilinogen Ur Leukocyte Esterase Urine RBC Urine WBC Ur Epithelial Cells Urine Crystals Urine Bacteria Urine Casts Urine Mucus Urine Other Ur Culture Indicated? Urine Glucose COVID-19 Source SARS-CoV-2 (PCR) Influenza Type A (PCR) Influenza Type B (PCR) RSV (PCR) 03/04/23 03/04/23 03/04/23 13:05 13:35 16:25 WBC RBC Hgb Hct MCV MCH MCHC RDW Plt Count MPV Immature Gran % Neutrophils % Lymphocytes % Monocytes % Eosinophils % Basophils % Nucleated RBC % Absolute Neutrophils Absolute Lymphocytes Absolute Monocytes Absolute Eosinophils Absolute Basophils PT INR APTT Sodium Potassium Chloride Carbon Dioxide Anion Gap BUN Creatinine Est GFR (CKD-EPI 2020) Glucose Calcium Magnesium Total Bilirubin AST ALT Alkaline Phosphatase Troponin I 139 H* Total Protein Albumin TSH Urine Color Yellow Urine Clarity Cloudy Urine pH 6.0 Ur Specific Institute >= 1.030 H Urine Protein 100 H Urine Ketones 15 H Urine Blood Negative Urine Nitrite Negative Urine Bilirubin Small H Urine Urobilinogen 0.2 Ur Leukocyte Esterase Negative Urine RBC Negative Urine WBC 0-2 Ur Epithelial Cells Negative Urine Crystals Negative Urine Bacteria Few Urine Casts Negative Urine Mucus Heavy Urine Other Negative Ur Culture Indicated? No Urine Glucose Negative COVID-19 Source Nasopharynx SARS-CoV-2 (PCR) Negative Influenza Type A (PCR) Negative Influenza Type B (PCR) Negative RSV (PCR) Negative Last Vital Signs Temp 37.0 C 03/04/23 12:28 Pulse 80 03/04/23 16:35 Resp 20 03/04/23 16:35 BP 139/79 03/04/23 16:35 Pulse Ox 95 03/04/23 16:50 Time Spent Time spent with Patient: 55-74 minutes Time was spent: preparing to see the patient(eg.review tests), obtaining and/or reviewing separately otained hiistory, ordering medications,tests, procedures, referring, communicating with other health customer care representative, indepentently interpreting results, counseling the patient and care coordination
--- NOTE | 2023-03-04 19:21 | W.EDPROG ---
Date of service: 03/04/23 Time of Service: 15:00 Medical Decision Making MDM: Summary: Patient was signed out to me by previous providerWho presents to the emergency department with increased dizziness and weakness. He had the same symptoms days ago and had a CAT scan which showed questionable lesions in the brain. Here he came and had an MRI which does show lesions compatible with multiple sclerosis. He will be admitted to the hospital for further management and treatment. Data Review Analysis All the data on this patient was reviewed by me including laboratory and imaging studies as well as bedside studies performed by me Independent review of Studies Imaging MRI is reviewed by me and read by radiology shows multiple lesions including a lesion in the cerebellum compatible with multiple sclerosis is causing the symptoms. Lab: Risk Stratification: Patient with weakness and dizziness most likely caused by multiple sclerosis which was diagnosed today. Differential Diagnosis: 1. Multiple sclerosis 2. Meningitis 3. Headache 4. 5. Consultants: Spoke with the hospitalist who agrees the patient will need admitted to the hospital for further work-up and treatment Shared disposition: Impression: Multiple sclerosis Exam Narrative Exam Narrative: Unchanged from examination done by the previous provider Sign Out Sign Out Data: Sign Out Comment: Patient pending MRI results for suspected MS reassessment of elevated troponin and disposition as needed. Last updated by Eliazar Patel NP at 03/04/23 15:41 Discharge Plan Disposition Patient Disposition: Admit to [facility] Condition: Stable Discharge Details Clinical Impression: Multiple sclerosis Admit Date/Time: 03/04/23 17:12 Admit Provider: Kobe Arango Attending Provider: Kobe Arango Primary Care Provider: Bunny Horne ED Provider: Umesh Pettit
[2023-03-04] MEDS: Acetaminophen 500 MG TAB 1000 MG PO (20:22)
[2023-03-04] MEDS: Gabapentin 600 MG TAB 1200 MG PO (21:09)
[2023-03-04] MEDS: Zolpidem 10 MG TAB PO (21:09)
[2023-03-04 21:11] LABS: Troponin I 117 ng/L (<or=60)
--- NOTE | 2023-03-05 | DI.MRI_ITS ---
Exam(s) MR THORACIC SPINE WO/W EXAM: MR THORACIC SPINE WO/W CLINICAL HISTORY: NEW DX MS. TECHNIQUE: Multiplanar multisequence MRI of the Thoracic spine was performed. CONTRAST MATERIAL: IV Contrast: 20 mL of Dotarem contrast administered. COMPARISON: CR CHEST 2 VIEWS PA,LAT from 07/04/2012 CR CHEST 2 VIEWS PA,LAT from 03/17/2013 CR XR LUMBAR SPINE COMPLETE from 08/26/2019 MR MR CERVICAL SPINE WO/W from 03/05/2023 FINDINGS: Exam is limited by patient body habitus and motion. Bones: There is a mild compression fracture of T9 and T10 which appear unchanged from prior chest x-r ay. Mild scoliosis. There is fatty marrow replacements which could indicate red marrow reconversio n. No abnormal high signal lesions are seen. Cord: The thoracic cord is normal size and signal intensity. No intrinsic cord lesion is present. Discs: There is a central disc protrusion at T8-9 which effaces the anterior CSF space. At T10-11, there is a left-sided focal disc protrusion arm effacing the left anterior CSF space and l ateral recess and appears to impinge on the left anterior aspect of the cord. This also causes sever e left neural foraminal narrowing. Mild disc bulging and small endplate osteophytes are seen at the remaining levels. Soft tissues: Normal. There is no evidence of suspicious enhancement. IMPRESSION: Central disc protrusion at T8-9. Large left sided disc protrusion at T 10 11 appears to impinge on the cord as well as cause severe le ft neural foraminal narrowing. DATA REPOSITORY:
--- NOTE | 2023-03-05 | DI.MRI_ITS ---
Exam(s) MR CERVICAL SPINE WO/W EXAM: MR CERVICAL SPINE WO/W CLINICAL HISTORY: New Dx MS TECHNIQUE: Multiplanar multisequence MRI of the cervical spine was performed. CONTRAST MATERIAL: IV Contrast: 20 ML of Dotarem contrast administered. COMPARISON: MR MR THORACIC SPINE WO/W from 03/05/2023 FINDINGS: BONES: Vertebral body heights are maintained. Intervertebral disc spaces are normal. Alignment is nor mal. Bone marrow signal intensity is within normal limits. CERVICAL CORD: Craniovertebral junction is unremarkable. The cervical cord is normal size and signal intensity. No lesion is present. SOFT TISSUES: Unremarkable. ENHANCEMENT: No suspicious enhancement identified. C2-3: No disc herniation or bulge is identified. No significant central spinal canal or neural forami nal stenosis. C3-4: No disc herniation or bulge is identified. No significant central spinal canal or neural forami nal stenosis C4-5: No disc herniation or bulge is identified. No significant central spinal canal or neural forami nal stenosis C5-6: No disc herniation or bulge is identified. No significant central spinal canal or neural forami nal stenosis C6-7: No disc herniation or bulge is identified. No significant central spinal canal or neural forami nal stenosis C7-T1: No disc herniation or bulge is identified. No significant central spinal canal or neural mason inal stenosis Exam is limited by patient body habitus and motion. IMPRESSION: Exam is significantly limited by patient body habitus. No abnormal high signal lesions are seen in the cervical spinal cord. There is no evidence of disc h erniation, central canal stenosis or neural foraminal narrowing. DATA REPOSITORY:
[2023-03-05 03:58] VITALS: BP 109/71; PULSE 83; RESP 16; TEMP 36.1; O2SAT 97
[2023-03-05 07:09] VITALS: BP 136/88; PULSE 81; TEMP 36.1; O2SAT 96
[2023-03-05 07:36] LABS: HCT 47.9 % (40.0-50.0); HGB 16.8 g/dL (13.5-17.5); MCH 30.5 pg (27.0-33.0); MCHC 35.1 % (32.0-36.0); MCV 87 fL (80-95); MPV 10.7 fL (8.0-11.0); Platelet Count 278 10^3/uL (130-400); RDW 13.1 % (11.8-14.1); RDW-SD 41.8 fL; WBC 3.26 10^3/uL (4.4-10.8)
[2023-03-05] MEDS: Acetaminophen 500 MG TAB 1000 MG PO (08:01)
[2023-03-05 08:14] LABS: Absolute Lymphocyte Count 0.55 10^3/uL (1.2-3.4); Absolute Neutrophil Count 2.67 10^3/uL (1.2-6.7); Atypical Lymphocytes % 3; Bands % 0; Diff Comment Manual Differential; Metamyelocytes % 1; RBC Morphology Normal
[2023-03-05 08:20] LABS: ALT 68 U/L (16-63); AST 28 U/L (15-37); Albumin 3.7 g/dL (3.4-5.0); Alkaline Phosphatase 66 U/L (46-116); Anion Gap 11.1 mmol/L (3-11); BUN 13 mg/dL (7-18); CO2 24.9 mmol/L (21.0-32.0); CREATININE 0.8 mg/dL (0.70-1.30); Calcium 9.4 mg/dL (8.5-10.1); Chloride 104 mmol/L (98-107); Estimated GFR 117.63 (mL/min/1.73m2); Glucose 168 mg/dL (74-106); Magnesium 2.2 mg/dL (1.8-2.4); Potassium 3.9 mmol/L (3.5-5.1); Sodium 140 mmol/L (136-145); Total Protein 8.3 g/dL (6.4-8.2)
--- NOTE | 2023-03-05 08:42 | PDOC.CMIN ---
Date of service: 03/05/23 Time of Service: 08:48 Care Management Initial Assmt Initial Assessment REASON FOR HOSPITALIZATION:: Multiple sclerosis PREVIOUS FUNCTIONAL STATUS/SOCIAL/FAMILY SUPPORTS:: Keith lives in [facility] with his fianc? Sharon and her son. He works for [employer] He drives and is independent with his ADL and within the community at baseline. CURRENT FUNCTIONAL STATUS:: Keith was sitting on the side of his bed, visiting with his partner Sharon and his sister which her reportedly has not seen his sister in 15 years. Keith is unsure how long he will be out of work. He is interested in finding out about community resources and agrees to a referral to [facility]. ADVANCE DIRECTIVES:: None on file Has patient been provided with info about the portal/API?: Yes Did the patient sign up for the portal?: Yes (Prior to admission) CODE STATUS:: Full Code INSURANCE COVERAGE / FINANCIAL ISSUES:: BC/BS of [place] Medicaid CURRENT HOME/COMMUNITY SERVICES/EQUIPMENT:: None PRIMARY CARE PHYSICIAN:: Bunny Horne POTENTIAL DISCHARGE NEEDS:: Discharge plan of care, close outpatient follow-up PATIENT/FAMILY EDUCATION NEEDS:: Review discharge instructions, limitations, medications and plan to follow up with outpatient providers. Discuss ask me three. TRANSPORTATION:: Via private vehicle with family PLAN:: Keith requires further medical work up for a suspected new dx of MS. Awaiting PT recommendations. Anticipated he will discharge home via private vehicle with [facility], when medically clear per hospitalist. New [facility] PT, if indicated. Anticipate Outpatient follow up with Neurology, cardiology and PCP. CM will follow. PFSH All Active Problems (Updated 03/04/23 @ 20:00 by Meghana Mccormack NP) Elevated ALT measurement (Acute) Elevated troponin (Acute) Headache (Acute) Restless leg syndrome (Acute) Dizziness (Acute) Normal colonoscopy (Acute ~07/04/20) Bleeding hemorrhoids (Acute) ROCK (nonalcoholic steatohepatitis) (Acute) Foot fracture (Acute) Back pain (Acute) Fall (Acute) Spermatocele (Acute) Hemorrhoid (Acute) Diarrhea (Acute) Blood in stool (Acute) Family history of Crohn's disease (Acute) Rectal or anal pain (Acute) Abdominal pain (Acute) Diabetes type 2, controlled (Acute) pt. states he no longer has this Obstructive sleep apnea (Chronic) Medical History Colonoscopy planned Depression Eczema Erectile dysfunction Fatigue Hypertension Migraine Obesity, Class III, BMI 40-49.9 (morbid obesity) Opiate abuse, episodic Remote history, on methadone x10 years recurrent gi bleed Sleep apnea Swelling of right lower extremity Tobacco abuse Wheezing Surgical History Colonoscopy - MAC 2009- normal 07/04/20 - History of colonoscopy (~07/04/20) Family History Grandmother No problems noted. Other Crohn's colitis Social History Smoking/Tobacco Use Status: Former Tobacco Use Quit Date: 07/29/14 Smoking risk assessment performed?: Yes Alcohol Intake: former Drug use: Daily Substance use type: marijuana Housing: apartment Do you feel safe at home: Yes Do you feel safe in your relationship?: Yes
--- NOTE | 2023-03-05 09:21 | NUR.NOTE ---
Nursing Note: At approximately 0920 on 03/05/23, this RN attempted to return a call from pt.'s significant other, Sahron (on HIPAA), but was unsuccessful, as the call went to voicemail. RN will attempt to return the call again later on.
--- NOTE | 2023-03-05 09:32 | NUR.NOTE ---
Nursing Note: At approximately 0930 on 03/05/23, this RN answered a call from the pt.'s significant other, Sharon (on HIPAA). RN updated pt.'s significant other regarding pt.'s mentation, pain level, head to toe assessment, plan of care, including PT and neurology consults and the MRI to happen this afternoon, etc. Pt.'s significant other verbalized understanding and presented with a few questions that were answered. Pt.'s significant other then stated that she would be in to visit later on. Call then ended.
[2023-03-05] MEDS: Psyllium PKT 1 EACH PO (09:51)
--- NOTE | 2023-03-05 11:00 | RT.EKG_ITS ---
APPROVED REPORT Exam: Resting ECG Reason for Exam: Elevated troponin Patient Location: I HR:77 bpm ECG Measurements Heart Rate 77 AXIS [place] 164 P 33 QRSd 101 QRS 25 QT 373 T 41 QTc 423 Conclusion Sinus rhythm...normal P axis, V-rate 50- 99 Baseline wander in lead(s) V2 Normal Electrocardiogram
[2023-03-05 11:06] VITALS: BP 124/79; PULSE 85; TEMP 36.8; O2SAT 97
--- NOTE | 2023-03-05 11:07 | RESPIRATORY ---
RT spoke with patient concerning history of MADYSON listed in his chart. Patient stated he no longer uses a machine as he lost 75lbs in September and no longer has any issues.
[2023-03-05] MEDS: Ketorolac 30 MG/ML VIAL IVP (11:34)
[2023-03-05] MEDS: Normal Saline Flush 10 ML SYR IVP ×3 (11:35→14:45)
[2023-03-05] MEDS: diphenhydrAMINE 50 MG/ML VIAL 25 MG IVP (14:08)
[2023-03-05] MEDS: Normal Saline 500 ML 100 ML IV (14:09)
[2023-03-05] MEDS: Prochlorperazine 10 MG/2 ML VIAL IVP (14:09)
[2023-03-05] MEDS: MAGNESIUM SULFATE 1 GM/100 ML BAG IVPB (14:10)
--- NOTE | 2023-03-05 14:43 | CHAPLAIN ---
Keith was admitted after his second ED visit with a possible diagnosis of MS. He is sitting up at the edge of his bed talking with his fiance, Sharon, when I visited. I explained my role and offered support. Keith said he is waiting to hear from the hospitalist to learn more. I will continue to visist.
--- NOTE | 2023-03-05 14:45 | DSE_ITS ---
Date of service: 03/05/23 Time of Service: 14:45 DS: Diagnosis Discharge Diagnosis (1) Multiple sclerosis: Status: Suspected (2) Dizziness: Status: Acute (3) Obstructive sleep apnea: Status: Chronic (4) Depression: (5) Restless leg syndrome: Status: Acute (6) Headache: Status: Acute (7) Elevated troponin: Status: Acute (8) Elevated ALT measurement: Status: Acute Discharge Plan Disposition Patient Disposition: Home Condition: Fair Discharge Details Reason For Visit: Multiple Sclerosis Admit Date/Time: 03/04/23 17:12 Admit Provider: Kobe Arango Attending Provider: Kobe Arango Primary Care Provider: Bunny Horne Hospital Course Hospital Course: This is a 37 year old patient with no significant past medical history who was seen at the [facility] ED on 02/24 with complaint of dizziness, intermittent slurred speech, brain fog and intermittent blurred vision for about two weeks.? He was discharged to home with findings on CT of the head revealing small ovoid shaped low attenuating lesions in the periventricularwhite matter. These are nonspecific finding however can be seen in demyelinating process such as multiple sclerosis. MRI of the brain was recommended for better evaluation, this was bit available until 03/05. Labs were unremarkable. Patient did not receive any treatment, was told to follow up with PC and was discharged to home.? Today, 03/04, patient returned to the ED for continued dizziness and moderate, aching neck and headache. Labs unremarkable except troponin 155, with down trend to 139.??Patient was given 1 litre of NS in the ED.? He was not given any medication.?Brain MRI revealing?multiple abnormal foci of high signal in the white matter in the periventricular location with a pattern highly suspicious for multiple sclerosis.? Additional scattered foci are seen in left frontal, bilateral temporal lobes as well as left cerebellum.? No evidence of associated enhancement.? No focus of restricted diffusion to suggest acute infarct. No space-occupying lesion identified. Patient was placed on observation status with a neurology consult. He complained of headache and was given compazine, bendadyl and magnesium with good relief. He received Solumedrol 1 gm every 24h x 2 doses. He had a MRI of the c-spine and t-spine. He was seen by Dr Rowan and will follow up with her. He is discharged with methylprednisolone 32 mg - 31 tablets daily for three days, tylenol or ibuprofen for headache or neckpain. ? Home Meds and New Rx's Prescriptions: New ondansetron 4 mg Tablet,Disintegrating 4 mg PO Q8H PRN PRNQty: 20 0RF methylprednisolone 32 mg tablet 32 mg PO DAILY Qty: 93 0RF Rx Instructions: Take 31 tablets daily for three days Continued clobetasol-emollient 15 GM cream 15 gm Topical DIRECTED Patient Comments: pt reports not taking Ketoconazole 15 GM CREAM..G. 15 gm Topical PRN Patient Comments: pt reports not taking albuterol sulfate [ProAir HFA] 90 mcg/actuation HFA aerosol inhaler 2 puff IH Q6H PRN gabapentin 600 mg tablet 1,200 tab PO HS Patient Comments: TAKE 2 TABLET BY MOUTH EVERY NIGHT cyclobenzaprine 5 mg tablet 5 mg PO TID PRNQty: 14 0RF Patient Comments: pt reports not taking ibuprofen 800 mg tablet 800 mg PO Q8H PRNQty: 60 3RF Patient Comments: pt reports not taking trazodone 50 mg tablet 100 mg DAILY Patient Comments: TKAE 1-2 TABLETS BY MOUTH AT NIGHT OF SLEEP STUDY NEEDED psyllium Packet PO DAILY Discharge Instructions Instructions: Methylprednisolone (By mouth), Multiple Sclerosis (DC), Neck Pain (DC) Additional Instructions: Take Methylprednisolon 31 tablets (32 mg each) in the morning with food for three days. Consider outpatient PT if having difficulty with balanace. A r eferral has been sent. See your PCP for pneumonia vaccine and shingles vaccine (VZV pending). Neurology recommends you start Ocrevus. You should start Vitamin D 2000 mg IU daily. It will be ok to return to work on Saturday, February unless you are feeling worse, then should see your PCP sooner. Follow up with Dr Cornejo in 3-4 weeks. Stand Alone Forms: Nursing Discharge Form Referrals: Bunny Horne [Primary Care Provider] - ([facility] call and make a appointment in the next 1-2 weeks with Bunny Horne @ [phone] Recommend shingles, flu, covid and pneumonia vaccine.) Ember Rowan MD [ [facility] STAFF PHYSICIAN] - (Please call Dr Bacon office and set up an appointment @ [phone] - see her in 3-4 weeks. also please keep your MRI Appointment that she has set up for you on 03/15/2023 @10:45 am ) Activity:: Activity as Tolerated Equipment/Supplies:: No Equipment Needed Diet:: Normal Diet Discharge Orders Discharge Orders: Discharge Order (Routine); Ordered 03/05/23 Ordered By: Meghana Mccormack DS: Summary Time Spent with Patient providing and/or coordinating discharge services: Greater than 30 minutes Status at Discharge Functional status at discharge: independent ambulation Overall status at discharge: patient is back to baseline Mental Status: mental status grossly normal Speech and Movement: speech and movement normal Mood: congruent mood Affect: normal affect Exam Const General: cooperative, healthy appearing, no acute distress and well groomed Orientation: alert, awake and oriented x3 HENMT Head: normal to inspection Ears: hearing grossly normal bilaterally and TM's normal bilaterally Mouth: oral mucosae normal and moist mucous membranes Throat: posterior oropharynx normal Eyes Visual Beckman: normal visual beckman by confrontation Alignment and Position: alignment normal Periorbital: periorbital findings normal Eyelids: eyelids normal Sclera: sclerae normal Cornea: corneas normal Pupils: PERRL EOM: EOM intact bilaterally Neck Neck: normal visual inspection, full ROM, no lymphadenopathy and no meningeal signs Resp Effort & Inspection: normal respiratory effort and able to speak in complete sentences Auscultation: clear to auscultation bilaterally Cardio Rate: regular rate Rhythm: regular rhythm Heart Sounds: S1 normal and S2 normal Neuro General: patient alert, patient awake, patient oriented x3, gait normal, tone normal, moves all extremities, CN's II-XI intact bilaterally and not confused Cognition: normal cognition Speech: speech normal Motor: muscle tone normal throughout, strength 5/5 throughout, no pronator drift, no movement abnormalities noted and no fasciculations Sensory Exam: no sensory deficits noted Coordination: [id number] test normal, Romberg test normal, Does not sway with eyes open, rapid alternating movement UE normal and rapid alternating movement LE normal Psych Mental Status: mental status grossly normal Speech and Movement: speech and movement normal Mood: congruent mood Affect: normal affect DS: Data Vitals/I&O Vitals and I&O: Vital Signs Temperature 36.8 C 03/05/23 11:06 Temperature Source Tympanic 03/05/23 11:06 Pulse 85 03/05/23 11:06 Pulse Rhythm Regular 03/05/23 00:05 Pulse 77 03/04/23 15:20 Respiratory Rate 16 03/05/23 03:58 Respiratory Effort Normal, Non-Labored 03/05/23 00:05 Respiratory Depth Normal 03/05/23 00:05 Respiratory Pattern Normal 03/05/23 00:05 Blood Pressure 124/79 03/05/23 11:06 Blood Pressure Mean 92 03/04/23 16:31 Blood Pressure Position Sitting 03/04/23 12:28 Pulse Oximetry 97 03/05/23 11:06 Oxygen Delivery Method Room Air 03/05/23 07:09 Oxygen Flow Rate 0 03/05/23 07:09 Pain Level 6 03/05/23 12:34 Comment Pt. complaining of 01/05, headache pain. RN notified pt. that it is too soon to receive acetaminophen (Tylenol) again. Pt. asking about Toradol. RN informed pt. that they would have to obtain an order for that. Charge nurse notified of pt.'s request. 03/05/23 11:08 Intake & Output 03/04/23 03/05/23 03/05/23 23:59 11:59 23:59 Intake Total 1100 / 1100 790 / 796.667 6.667 / 796.667 Balance 1100 / 1100 790 / 796.667 6.667 / 796.667 Weight 141.521 kg Intake: IV 1100 / 1100 6.667 / 6.667 Oral 790 / 790 Other: Comment Void in toilet not visualized Stool Size Moderate Stool Characteristics Soft Voiding Methods Toilet Data Completed and Pending Labs on day of discharge: Labs from last 24 hours 03/05/23 03/05/23 03/05/23 06:30 06:30 06:30 WBC 3.26 L RBC 5.50 Hgb 16.8 Hct 47.9 MCV 87 MCH 30.5 MCHC 35.1 RDW 13.1 Plt Count 278 MPV 10.7 Immature Gran % 0.0 Neutrophils % 82.0 Band Neutrophils % 0 Lymphocytes % 14.0 Atypical Lymphs % 3 Monocytes % 0.0 Eosinophils % 0.0 Basophils % 0.0 Metamyelocytes % 1 Nucleated RBC % 0.0 Absolute Neutrophils 2.67 Absolute Lymphocytes 0.55 L Absolute Monocytes 0.00 L Absolute Eosinophils 0.00 Absolute Basophils 0.00 RBC Morphology Normal Sodium 140 Potassium 3.9 Chloride 104 Carbon Dioxide 24.9 Anion Gap 11.1 H BUN 13 Creatinine 0.8 Est GFR (CKD-EPI 2020) 117.63 Glucose 168 H Calcium 9.4 Magnesium 2.2 Total Bilirubin 1.0 AST 28 ALT 68 H Alkaline Phosphatase 66 Troponin I Total Protein 8.3 H Albumin 3.7 Vit D 1,25-Dihydroxy % CD19 Cells % CD20 Cells COVID-19 Source SARS-CoV-2 (PCR) Hepatitis A IgM Ab Hep Bs Antigen Hep B Core Total Ab Hepatitis C Antibody HIV 1&2 Ag/Ab, 4th Gen Pending Influenza Type A (PCR) Influenza Type B (PCR) [place] Virus Spec Source JCV, Quant DNA (Copy/mL) JCV Quant DNA (Log Copy/mL) RSV (PCR) TB Test Ag - Nil 1 TB Test Ag - Nil 2 TB Test (QFT) Interp VZV IgG Antibody 03/04/23 03/04/23 03/04/23 21:38 21:38 20:30 WBC RBC Hgb Hct MCV MCH MCHC RDW Plt Count MPV Immature Gran % Neutrophils % Band Neutrophils % Lymphocytes % Atypical Lymphs % Monocytes % Eosinophils % Basophils % Metamyelocytes % Nucleated RBC % Absolute Neutrophils Absolute Lymphocytes Absolute Monocytes Absolute Eosinophils Absolute Basophils RBC Morphology Sodium Potassium Chloride Carbon Dioxide Anion Gap BUN Creatinine Est GFR (CKD-EPI 2020) Glucose Calcium Magnesium Total Bilirubin AST ALT Alkaline Phosphatase Troponin I 117 H* Total Protein Albumin Vit D 1,25-Dihydroxy % CD19 Cells Pending % CD20 Cells Pending COVID-19 Source SARS-CoV-2 (PCR) Hepatitis A IgM Ab Hep Bs Antigen Hep B Core Total Ab Hepatitis C Antibody HIV 1&2 Ag/Ab, 4th Gen Influenza Type A (PCR) Influenza Type B (PCR) [place] Virus Spec Source Pending JCV, Quant DNA (Copy/mL) Pending JCV Quant DNA (Log Copy/mL) Pending RSV (PCR) TB Test Ag - Nil 1 Pending TB Test Ag - Nil 2 Pending TB Test (QFT) Interp Pending VZV IgG Antibody 03/04/23 03/04/23 03/04/23 19:00 19:00 19:00 WBC RBC Hgb Hct MCV MCH MCHC RDW Plt Count MPV Immature Gran % Neutrophils % Band Neutrophils % Lymphocytes % Atypical Lymphs % Monocytes % Eosinophils % Basophils % Metamyelocytes % Nucleated RBC % Absolute Neutrophils Absolute Lymphocytes Absolute Monocytes Absolute Eosinophils Absolute Basophils RBC Morphology Sodium Potassium Chloride Carbon Dioxide Anion Gap BUN Creatinine Est GFR (CKD-EPI 2020) Glucose Calcium Magnesium Total Bilirubin AST ALT Alkaline Phosphatase Troponin I Total Protein Albumin Vit D 1,25-Dihydroxy Pending % CD19 Cells % CD20 Cells COVID-19 Source SARS-CoV-2 (PCR) Hepatitis A IgM Ab Pending Hep Bs Antigen Pending Hep B Core Total Ab Pending Hepatitis C Antibody Pending HIV 1&2 Ag/Ab, 4th Gen Influenza Type A (PCR) Influenza Type B (PCR) [place] Virus Spec Source JCV, Quant DNA (Copy/mL) JCV Quant DNA (Log Copy/mL) RSV (PCR) TB Test Ag - Nil 1 TB Test Ag - Nil 2 TB Test (QFT) Interp VZV IgG Antibody Pending 03/04/23 03/04/23 16:25 13:35 WBC RBC Hgb Hct MCV MCH MCHC RDW Plt Count MPV Immature Gran % Neutrophils % Band Neutrophils % Lymphocytes % Atypical Lymphs % Monocytes % Eosinophils % Basophils % Metamyelocytes % Nucleated RBC % Absolute Neutrophils Absolute Lymphocytes Absolute Monocytes Absolute Eosinophils Absolute Basophils RBC Morphology Sodium Potassium Chloride Carbon Dioxide Anion Gap BUN Creatinine Est GFR (CKD-EPI 2020) Glucose Calcium Magnesium Total Bilirubin AST ALT Alkaline Phosphatase Troponin I 139 H* Total Protein Albumin Vit D 1,25-Dihydroxy % CD19 Cells % CD20 Cells COVID-19 Source Nasopharynx SARS-CoV-2 (PCR) Negative Hepatitis A IgM Ab Hep Bs Antigen Hep B Core Total Ab Hepatitis C Antibody HIV 1&2 Ag/Ab, 4th Gen Influenza Type A (PCR) Negative Influenza Type B (PCR) Negative [place] Virus Spec Source JCV, Quant DNA (Copy/mL) JCV Quant DNA (Log Copy/mL) RSV (PCR) Negative TB Test Ag - Nil 1 TB Test Ag - Nil 2 TB Test (QFT) Interp VZV IgG Antibody PFSH All Active Problems (Updated 03/05/23 @ 16:56 by Ember Rowan MD) Neck pain (Acute) Vertigo (Acute) Elevated ALT measurement (Acute) Elevated troponin (Acute) Headache (Acute) Restless leg syndrome (Acute) Dizziness (Acute) Normal colonoscopy (Acute ~07/04/20) Bleeding hemorrhoids (Acute) ROCK (nonalcoholic steatohepatitis) (Acute) Foot fracture (Acute) Back pain (Acute) Fall (Acute) Spermatocele (Acute) Hemorrhoid (Acute) Diarrhea (Acute) Blood in stool (Acute) Family history of Crohn's disease (Acute) Rectal or anal pain (Acute) Abdominal pain (Acute) Diabetes type 2, controlled (Acute) pt. states he no longer has this Obstructive sleep apnea (Chronic) Medical History Colonoscopy planned Depression Eczema Erectile dysfunction Fatigue Hypertension Migraine Obesity, Class III, BMI 40-49.9 (morbid obesity) Opiate abuse, episodic Remote history, on methadone x10 years recurrent gi bleed Sleep apnea Swelling of right lower extremity Tobacco abuse Wheezing Surgical History Colonoscopy - [facility] 2009- normal 07/04/20 - History of colonoscopy (~07/04/20) Family History Grandmother No problems noted. Other Crohn's colitis Social History Smoking/Tobacco Use Status: Former Tobacco Use Quit Date: 07/29/14 Smoking risk assessment performed?: Yes Alcohol Intake: former Drug use: Daily Substance use type: marijuana Housing: apartment Do you feel safe at home: Yes Do you feel safe in your relationship?: Yes Time Spent with Patient Time Spent with Patient: 45-69 minutes Time was spent: preparing to see the patient(eg.review tests), ordering medications,tests, procedures, referring, communicating with other health insurance healthcare consultant, indepentently interpreting results, counseling the patient and care coordination
[2023-03-05] MEDS: Gadoterate meglumine 20 ML VIAL IVP (14:46)
[2023-03-05 15:54] LABS: Lab Add On Test DONE
--- NOTE | 2023-03-05 16:06 | NCONE_ITS ---
Date of service: 03/05/23 Time of Service: 16:06 Assessment and Plan Assessment and plan (1) Multiple sclerosis: Status: Suspected (2) Headache: Status: Acute (3) Vertigo: Status: Acute (4) Neck pain: Status: Acute Assessment and plan: Mr. Mascorro presents with ~2weeks of vertigo with imbalance, dysarthria, blurred vision, fatigue, memory issues. He meets the diagnosis of Multiple Sclerosis. We discussed this diagnosis as well as etiology, prognosis, and treatment opt ions. He has had appropriate blood work as further work-up for his MS and to help with treatment planning. For his acute symptoms, he will get a second dose of IVMP 1000mg now and I recommend that he continue PO methylprednisolone 1000mg daily for an additional 3 days (total of 5; ~31 pills daily). ADRs discussed with him. He should take it in the am and with food. Vertigo should improve, but consider outpatient PT if still having difficulty with balance. We discussed updated vaccinations including penumonia vaccine +/- shingles vaccine if needed (VZV ab pending) - and I recommend that he make appointment with his PCP to get this started. Otherwise, we briefly discussed introduction of disease modifying medications and my specific recommendation of Ocrevus for him. I have recommended this high efficacy drug given his high risk status being male. ADRs discussed and I gave him a hand out about this to consider/read further. He will start vitamin D supplement 2000mg IU daily. We discussed staying out of work through the end of the week so that he can recover and give time for steroids to take effect. For his headaches/neck pain, he can use APAP vs ibuprofen prn. He should f/up in the neurology office in 3-4 weeks. History of Present Illness History of Present Illness Chief Complaint: new MS Narrative: Handedness: right. Mr. Mascorro is a 37 year-old with hypertension, DM2 no currently on medications after weight loss, Obstructive and central sleep apneas complicated by medications and not currently on CPAP after weight loss; insomnia, ROCK, depression, ED, headaches, prior GI bleed and remote opioid dependence. Mr. Mascorro presented to the [facility] ER on 02/24/23 with 1-2 weeks of : -constant dizziness described as vertigo, non-positional, and worse as the day goes on without associated nausea. -dysarthria without dysphagia -blurred vision in the evenings only to such severity that he can't read at times -fatigue. Sleeps 8hr per night and feels rested. But strugles to stay awake in the evenings. -brain fog/memory issues. He forgot how to write the letter 'e'. He has trouble recalling conversations and timeline of events over the last few weeks. His neurological exam and laboratory work-up was unremarkable. He underwent CTH imaging as below and was recommended to f/up with PCP for further testing. He returned to the ER yesterday 03/04/23 with ongoing symptoms above but now with posterior neck pain and slight headache, worse this afternoon, but better after Toradol, Benadryl, Compazine, Mag. He notes onset of neck pain in last 3 days. No injury. He has a constant pressure in his head, along with spots of pain lasting 3-4hours at a time at various spots on his head. Prior to this week, he notes rare headaches only 1x/year though migraine is listed in his PMHx. He has no prior neck issues. He has since undergone further work-up as below. He denies any prior history of vision loss, numbness, weakness, etc. However, it sounds like a few months ago he developed R hand spasms vs contractures that has been intermittent since. He was started on IVMP 1000mg daily yesterday. He has not had a second dose as yet. He notes within 15min of the first dose infusing his vision cleared like a shutter opening right to left. His dysarthria has also resolved. The rest of his symptoms remain unchanged. He had trouble sleeping last night. He otherwise notes he is up to date with flu/COVID vaccinations. Work-up: -[facility] (02/24/23): changes concerning for MS. I reviewed these images personally and this is my personal interpretation. -MRI brain w/wo (03/04/23): Multiple bilateral cortical and subcortical lesions concerning for MS including T2 black holes in the R periventricular space and in the L cerebellum. Contrast images complicated by motion artifact, but appears to show a contrast enhancing lesion in the L brachium pontus per my view. I reviewed these images personally and this is my personal interpretation. -MRI c-spine and t-spine w/wo (03/05/23): No cord abnormalities. Large L T11-12 disc protrusion that abuts but does not compress the cord/conus. I reviewed these images personally and this is my personal interpretation. -Pending results: vitD, Ig panel, CD19/20, VZV ab, Hep panel, TB, HIV Review of Systems All systems reviewed & are unremarkable except as noted in HPI and below PFSH All Active Problems (Updated 03/05/23 @ 16:56 by Ember Rowan MD) Neck pain (Acute) Vertigo (Acute) Elevated ALT measurement (Acute) Elevated troponin (Acute) Headache (Acute) Restless leg syndrome (Acute) Dizziness (Acute) Normal colonoscopy (Acute ~07/04/20) Bleeding hemorrhoids (Acute) ROCK (nonalcoholic steatohepatitis) (Acute) Foot fracture (Acute) Back pain (Acute) Fall (Acute) Spermatocele (Acute) Hemorrhoid (Acute) Diarrhea (Acute) Blood in stool (Acute) Family history of Crohn's disease (Acute) Rectal or anal pain (Acute) Abdominal pain (Acute) Diabetes type 2, controlled (Acute) pt. states he no longer has this Obstructive sleep apnea (Chronic) Medical History Colonoscopy planned Depression Eczema Erectile dysfunction Fatigue Hypertension Migraine Obesity, Class III, BMI 40-49.9 (morbid obesity) Opiate abuse, episodic Remote history, on methadone x10 years recurrent gi bleed Sleep apnea Swelling of right lower extremity Tobacco abuse Wheezing Surgical History Colonoscopy - [facility] 2009- normal 07/04/20 - History of colonoscopy (~07/04/20) Family History Grandmother No problems noted. Other Crohn's colitis Social History Smoking/Tobacco Use Status: Former Tobacco Use Quit Date: 07/29/14 Smoking risk assessment performed?: Yes Alcohol Intake: former Drug use: Daily Substance use type: marijuana Housing: apartment Do you feel safe at home: Yes Do you feel safe in your relationship?: Yes Visit Medication and Allergies Active Medications Generic Name Dose Route Start Last Admin Trade Name Freq PRN Reason Stop Dose Admin Acetaminophen 1,000 mg 03/04/23 19:15 03/05/23 08:01 Acetaminophen 500 Mg Tab PO 1,000 mg Q6H PRN PRN Administration Albuterol Sulfate 2 puff 03/04/23 19:21 Albuterol Hfa 8 Gm 60 Puff Inh IH Q6H PRN PRN Device 1 each 03/04/23 20:00 Inhaler, Assist Device DIRECTED [facility] Dimethicone/Zinc Oxide 0 gm 03/04/23 17:12 Denis Protect Cream 142 Gm Tube TP PRN PRN Gabapentin 1,200 mg 03/04/23 22:00 03/04/23 21:09 Gabapentin 600 Mg Tab PO 1,200 mg HS MARISOL Administration Gadoterate Meglumine 20 ml 03/05/23 15:00 03/05/23 14:46 Gadoterate Meglumine 20 Ml Vial IVP 04/04/23 16:00 20 ml DIRECTED MARISOL Administration Methylprednisolone Sodium 100 mls @ 200 mls/hr 03/05/23 20:00 Succinate 1,000 mg/ Sodium IVPB Chloride Q24H MARISOL Sodium Chloride 500 mls @ 0 mls/hr 03/05/23 07:33 03/05/23 14:10 Saline 500ml Bag IV 0 mls/hr PRN PRN Infusion As Directed IV Miscellaneous Supplies 1 each 03/05/23 07:45 Iv Access IV DIRECTED [facility] Meclizine HCl 25 mg 03/04/23 19:38 Meclizine 25 Mg Tab PO TID PRN PRN Ondansetron HCl 4 mg 03/04/23 19:15 Ondansetron O.D.T. 4 Mg Tabef PO Q8H PRN PRN Psyllium Hydrophilic Mucilloid 1 each 03/06/23 08:30 Psyllium Pkt PO DAILY [facility] Sodium Chloride 0 ml 03/05/23 07:33 03/05/23 14:09 Normal Saline Flush 10 Ml Syr IVP 40 ml PRN PRN Administration Trazodone HCl 100 mg 03/05/23 20:00 Trazodone 50 Mg Tab PO QPM MARISOL Zolpidem Tartrate 10 mg 03/04/23 22:00 03/04/23 21:09 Zolpidem 10 Mg Tab PO 10 mg HS MARISOL Administration Allergies buprenorphine HCl [From Suboxone] Allergy (Intermediate, Verified 03/04/23 12:31) vomiting hives diarrhea hallucination naloxone HCl [From Suboxone] Allergy (Intermediate, Verified 03/04/23 12:31) vomiting hives diarrhea hallucination sertraline Allergy (Mild, Verified 03/04/23 12:31) unknown shellfish derived Allergy (Verified 03/04/23 12:31) Swelling/Edema zolmitriptan [From Zomig] Adverse Reaction (Severe, Verified 03/04/23 12:31) Severe headache Ring of fire around my head propranolol [From Inderal LA] Adverse Reaction (Intermediate, Verified 03/04/23 12:31) insomnia Sulfa (Sulfonamide Antibiotics) Adverse Reaction (Intermediate, Verified 03/04/23 12:31) Nausea Exam Narrative Exam Narrative: Physical Exam: Gen: Patient of apparent stated age, NAD Head and face: no facial or cranial abnormalities Neck: Supple, no meningismus, no occipital tenderness CV: + S1, S2, RRR, no murmur Resp: CTA B/L Abd: soft, nontender, nondistended Ext: No edema. No clubbing or cyanosis. No bony deformity. Neuro Exam: Language: fluency, naming, repetition, and comprehension intact; Mental Status: AAOx3, current events intact, fund of knowledge intact; Speech: no dysarthria Cranial nerves: Funduscopy: not performed CN II: visual dobbs intact CN III, IV, : extraocular movements intact, no nystagmus, pupils symmetric and reactive to light; no APD CN V: face sensation intact to LT and PP CN VII: no facial asymmetry noted CN VIII: hearing intact bilaterally CN IX, X: palate rises symmetrically CN XI: trapezius/SCM 5/5 bilaterally CN XII: protrudes tongue symmetrically Sensory: intact to LT, vibration, and joint position in all extremities; reduced PP in dorsum of R hand only Motor: bulk and tone intact. Fine motor movements intact bilaterally. No pronator drift. Strength 5/5 throughout including the deltoids, biceps, triceps, wrist extensors, hip flexors, knee flexors, knee extensors, ankle flexors, and ankle extensors. Reflexes: hyporeflexic throughout at the biceps, triceps, brachioradialis, patella, and achilles tendons bilaterally; toes down going bilaterally; Coordination: FTN and HTS intact bilaterally Gait: not seen Results Last Vital Signs Temp 98.2 F 03/05/23 11:06 Pulse 85 03/05/23 11:06 Resp 16 03/05/23 03:58 BP 124/79 03/05/23 11:06 Pulse Ox 97 03/05/23 11:06 Labs 03/05/23 06:30 03/05/23 06:30 Labs: Laboratory Results - last 24 hr 03/04/23 03/04/23 03/05/23 16:25 20:30 06:30 WBC RBC Hgb Hct MCV MCH MCHC RDW Plt Count MPV Immature Gran % Neutrophils % Band Neutrophils % Lymphocytes % Atypical Lymphs % Monocytes % Eosinophils % Basophils % Metamyelocytes % Nucleated RBC % Absolute Neutrophils Absolute Lymphocytes Absolute Monocytes Absolute Eosinophils Absolute Basophils RBC Morphology Sodium 140 Potassium 3.9 Chloride 104 Carbon Dioxide 24.9 Anion Gap 11.1 H BUN 13 Creatinine 0.8 Est GFR (CKD-EPI 2020) 117.63 Glucose 168 H Calcium 9.4 Magnesium 2.2 Total Bilirubin 1.0 AST 28 ALT 68 H Alkaline Phosphatase 66 Troponin I 139 H* 117 H* Total Protein 8.3 H Albumin 3.7 Add-On Test Request 03/05/23 03/05/23 06:30 06:30 WBC 3.26 L RBC 5.50 Hgb 16.8 Hct 47.9 MCV 87 MCH 30.5 MCHC 35.1 RDW 13.1 Plt Count 278 MPV 10.7 Immature Gran % 0.0 Neutrophils % 82.0 Band Neutrophils % 0 Lymphocytes % 14.0 Atypical Lymphs % 3 Monocytes % 0.0 Eosinophils % 0.0 Basophils % 0.0 Metamyelocytes % 1 Nucleated RBC % 0.0 Absolute Neutrophils 2.67 Absolute Lymphocytes 0.55 L Absolute Monocytes 0.00 L Absolute Eosinophils 0.00 Absolute Basophils 0.00 RBC Morphology Normal Sodium Potassium Chloride Carbon Dioxide Anion Gap BUN Creatinine Est GFR (CKD-EPI 2020) Glucose Calcium Magnesium Total Bilirubin AST ALT Alkaline Phosphatase Troponin I Total Protein Albumin Add-On Test Request DONE
[2023-03-05 16:52] LABS: Hemoglobin A1C 5.1 % (<5.7)
--- NOTE | 2023-03-05 17:05 | PDOC.CMDIS ---
Date of service: 03/05/23 Time of Service: 17:05 LACE Index Scoring Tool Questions: Length of Stay (in days): 1 Was the patient admitted via the E.D.?: Yes Comorbidities: Diabetes w/o Complication E.D. Visits: 2 Answers: Total Score: 7 Risk of Readmission: Low Risk Care Management Discharge Plan Reason for Hospitalization: Multiple sclerosis Discharge Plan: Keith will discharge home via private vehicle with his partner. He will follow up with his PCP and discharge plan of care as instructed. No VNA services are ordered prior to discharge. Patient/Family Education Needs: Review discharge instructions, limitations, medications and plan to follow up with community providers. Discuss ask me three.
--- NOTE | 2023-03-05 18:14 | DI.VRAD_ITS ---
PROCEDURE INFORMATION: Exam: MR Cervical Spine Without and With Contrast Exam date and time: 03/05/2023 2:30 PM Age: 37 years old Clinical indication: Condition or disease; Ms TECHNIQUE: Imaging protocol: Magnetic resonance imaging of the cervical spine without and with contrast. COMPARISON: MR BRAIN WO/W 03/04/2023 3:38 PM FINDINGS: Bones/joints: No fracture. Normal alignment. Spinal cord: No cord compression. The axial T2 images are slightly limited by artifactual image degradation, limiting evaluation of the spinal cord signal. C2-C3: No significant disc bulge or herniation. No severe spinal canal stenosis. No significant neural foraminal narrowing. C3-C4: No significant disc bulge or herniation. No severe spinal canal stenosis. No significant neural foraminal narrowing. C4-C5: No significant disc bulge or herniation. No severe spinal canal stenosis. No significant neural foraminal narrowing. C5-C6: Uncovertebral arthropathy noted on the right causing mild neural foraminal narrowing. No significant spinal canal stenosis. C6-C7: Uncovertebral arthropathy noted on the left with mild neural foraminal narrowing. No significant spinal canal stenosis. C7-T1: No significant disc bulge or herniation. No severe spinal canal stenosis. No significant neural foraminal narrowing. Soft tissues: Unremarkable. IMPRESSION: 1. Degenerative changes as described, causing neural foraminal narrowing. No significant spinal canal stenosis. 2. Suboptimal evaluation of the spinal cord signal due to artifact, limiting evaluation for any spinal cord lesions. No large lesion seen on the sagittal views. Dictated and Authenticated by: Yoselin Wong MD. Ordering:DAVIS Kowalski MD
--- NOTE | 2023-03-05 18:39 | DI.VRAD_ITS ---
PROCEDURE INFORMATION: Exam: MR Thoracic Spine Without and With Contrast Exam date and time: 03/05/2023 3:00 PM Age: 37 years old Clinical indication: Condition or disease; Ms TECHNIQUE: Imaging protocol: Magnetic resonance imaging of the thoracic spine without and with contrast. Contrast material: DOTAREM; Contrast volume: 20 ml; Contrast route: INTRAVENOUS (IV); COMPARISON: MR CERVICAL SPINE WO/W 03/05/2023 2:30 PM FINDINGS: Limitations: Motion artifact does moderately limit the sensitivity of this examination. Bones/joints: No fracture. There is suggestion of a scoliotic curvature. There is a prominent central disc protrusion at the T8-T9 level and a left disc protrusion at T10-T11 causing ventral indentation of the spinal cord (series [id number]). No severe spinal canal stenosis. No significant neural foraminal narrowing. Spinal cord: No cord compression. No definite spinal cord lesion detected, although motion artifact limits evaluation. Soft tissues: Unremarkable. IMPRESSION: 1. Multilevel disc protrusions causing indentation of the spinal cord as described. Correlate with clinical findings. 2. No significant spinal cord compression. 3. Limited evaluation for spinal cord lesions in the regions of motion artifact, however no definite lesions are seen in the other regions. Dictated and Authenticated by: Yoselin Wong MD. [facility]ing[facility] Nba Bullock MD
--- NOTE | 2023-03-06 09:30 | PT.INNT ---
Date of service: 03/06/23 Time of Service: 09:30 PT Notes Visit Reasons: Multiple Sclerosis Patient was discharged to home by hospitalist same day after neurology assessment with recommendation of outpatient PT if balance issues persist. No services were provided for this episode of care. Thank you for the opportunity to participate in the care of this patient. Penelope Kelly PT, DPT, CLT [facility] [place], [place]
[2023-03-06 09:40] LABS: Varicella IgG Antibody Positive (See Note)
[2023-03-06 09:46] LABS: Hepatitis A Antibody IgM Negative (Negative); Hepatitis B Core Antibody Negative (Negative); Hepatitis B surface Ag Negative (Negative); Hepatitis C Ab w Rflx HCV PCR Negative (Negative)
[2023-03-06 10:13] LABS: HIV-1/2 Ag & Ab Screen Negative (Negative)
[2023-03-06 11:13] LABS: TB Interpretation Negative (Negative); TB1 Ag minus Nil 0.01 IU/ml
[2023-03-07 08:41] LABS: IgA 409 mg/dL (85-499); IgG 1090 mg/dL (610-1616); IgM 190 mg/dL (35-242)
[2023-03-07 12:19] LABS: CD19 8 % (6-24); CD20 8 % (6-24)
[2023-03-08 16:06] LABS: 1,25-Dihydroxyvitamin D 60 pg/mL (18-64)
[2023-03-10 00:30] LABS: JC Virus DNA, QN PCR NOT DETECTED; JC Virus DNA, QN PCR NOT DETECTED Log IU/mL; Source PLASMA
== END 2023-03-05 18:08 | disposition home or self-care (01) ==
LOC: ER 17:41 → MS 18:27
PROVIDERS: Nurse Practitioner Family; Admitting Provider Internal Medicine; Emergency Provider Emergency Medicine Emergency Medical Services; PCP Physician Assistant; Visit Provider Internal Medicine
DX: G35 Multiple sclerosis (principal); R42 Dizziness and giddiness; G25.81 Restless legs syndrome; F32.A Depression, unspecified; R74.8 Abnormal levels of other serum enzymes; R51.9 Headache, unspecified; M54.2 Cervicalgia; R74.01 Elevation of levels of liver transaminase levels; K75.81 Nonalcoholic steatohepatitis (NASH); E11.9 Type 2 diabetes mellitus without complications; E66.9 Obesity, unspecified; Z68.41 Body mass index [BMI] 40.0-44.9, adult; L30.9 Dermatitis, unspecified; I10 Essential (primary) hypertension; Z87.891 Personal history of nicotine dependence; F12.90 Cannabis use, unspecified, uncomplicated; Z79.899 Other long term (current) drug therapy
CPT/HCPCS: 36415; 70553; 80053; 82784; 86704; 86709; 86787; 86803; 87340; 87389; 87637; 87799; 88184; 88185; 93005; 99285; 72156; 72157; 81003; 81015; 82652; 83036; 83735; 84443; 84484; 85025; 85610; 85730; 86480; 93010; 99222; 99239; G0378; J0780; J1200; J1885; J2930; J3475

== ENCOUNTER → 2023-03-15 00:20 | Outpatient (CLI) | payer MEDICAID, SELFPAY ==
[2023-03-15] MEDS: Normal Saline Flush 10 ML SYR IVP (11:09)
[2023-03-15] MEDS: Gadoterate meglumine 20 ML VIAL IVP (11:09)
--- NOTE | 2023-03-15 11:40 | DI.MRI_ITS ---
Exam(s) MR BRAIN WO/W EXAM: MR BRAIN WO/W CLINICAL HISTORY: UNSTEADINESS R26.81 W/ LOSS OF FOCUS/MEMORY VISUAL DISTURBANCE TECHNIQUE: Multiplanar multisequence MRI of the brain was performed. Both noninfused and contrast i nfused sequences were performed. IV Contrast injected was 20 cc Dotarem. COMPARISON: MR MR BRAIN WO/W from 03/04/2023 FINDINGS: CEREBRAL PARENCHYMA: Previously described multiple white matter foci of signal abnormality are again noted..... There is single area of signal abnormality in the medial aspect of the left cerebellar hemisphere, un changed measuring 9 x 6 mm and not exhibiting hemorrhage or surrounding edema nor enhancement nor res tricted diffusion. Above the posterior fossa of there are again noted multiple foci of signal abnormality in the [place]/ s upra ventricular white matter, also involving the corpus callosum. These appear unchanged in size an d number and did not exhibit hemorrhage nor enhancement. On diffusion imaging 1 of these exhibits mi ld restricted diffusion, this being the lesion in the immediate right para-supra ventricular white ma tter. There are no ring enhancing lesions in the brain. There is no abnormal meningeal enhancement. PITUITARY GLAND: No mass nor parasellar abnormality. No obvious abnormality in the cavernous sinuses. FLOW VOIDS: The expected flow void are noted. No evidence of obvious aneurysm nor obvious vascular ma lformation. PARANASAL SINUSES: The visualized paranasal sinuses appear unremarkable. ORBITS: No obvious abnormal findings. No evidence of obvious optic neuritis. IMPRESSION: 1. Findings are unchanged from the noninfused MRI scan of March 04, 2023. The previously described m ultiple lesions do not exhibit enhancement. One of these exhibits mild restricted diffusion which is on the right side of the corpus callosum. Findings are suspicious for demyelinating disease such as multiple sclerosis. Differential diagnosis would include inflammatory diseases, less likely ischemic in this young age gr oup. DATA REPOSITORY:
== END ==
PROVIDERS: PCP Physician Assistant; Visit Provider Physician Assistant
DX: R26.81 Unsteadiness on feet (principal); R90.89 Other abnormal findings on diagnostic imaging of central nervous system
CPT/HCPCS: 70553

== ENCOUNTER 2023-03-20 10:06 | Emergency (ER) | payer MEDICAID, SELFPAY ==
[2023-03-20 10:42] VITALS: BP 110/82; PULSE 88; RESP 22; TEMP 37; O2SAT 97
[2023-03-20 11:35] LABS: Bilirubin Negative (Negative); Blood Negative (Negative); Clarity Clear (Clear); Glucose Negative (Negative); Ketones Negative (Negative); Leukocyte Esterase Negative (Negative); Nitrite Negative (Negative); Specific Gravity 1.015 (1.005-1.025); Urobilinogen 0.2 mg/dL (Up to 0.2)
--- NOTE | 2023-03-20 12:30 | DI.CT_ITS ---
Exam(s) CT RENAL COLIC WO EXAM: CT RENAL COLIC WO CLINICAL HISTORY: Left flank pain. TECHNIQUE: Imaging Protocol: Axial computed tomography images with coronal and sagittal reformatted images were created and reviewed. COMPARISON: CR XR LUMBAR SPINE COMPLETE from 08/26/2019 MR MR LUMBAR SPINE WO from 09/21/2019 FINDINGS: ABDOMEN: Lung Bases: Normal where visualized. Liver: Normal density. No measurable mass. Gallbladder and biliary tract: No radiodense calculus or biliary ductal dilation. Pancreas: Normal density, no abnormal calcifications or inflammatory process. Spleen: Normal. Kidneys: Normal size, contour and axis.No radiodense stones or obstructive uropathy. There is a perip herally calcified 1.1 cm lesion in the right kidney. Adrenal glands: No mass is seen. Lymph nodes: Within normal limits. Abdominal Aorta: Abdominal portion non-dilated. Mild atherosclerosis. PELVIS: Bladder:Symmetric distention, no gross wall thickening. Bowel: There is diverticulosis in the colon, but no evidence of acute diverticulitis. There is no pn eumatosis. No evidence of bowel obstruction is present. There is wall thickening seen in the termin al ileum. It also appears mildly enlarged. No evidence of appendicitis. Peritoneal cavity: No ascites, collection or mesenteric inflammatory response. No free air. Reproductive organs: Unremarkable as visualized. Bones: Within normal limits. Soft Tissues: Within normal limits. IMPRESSION: 1. There is no evidence of nephrolithiasis or hydronephrosis. 2. Question of mild thick wall thickening and enlargement of the terminal ileum. This may be distens ion due to stool. Follow-up with an outpatient small-bowel follow-through barium examination is liz mmended for further evaluation. 3. Colonic diverticulosis without evidence of acute diverticulitis. 4. Findings were discussed with Fidelina Hernandez at 1:24 p.m. on 03/20/2023. RADIATION DOSE DELIVERED: 1,414.19mGy.cm Total DLP DATA REPOSITORY: All CT scans at this facility are submitted to the National Radiology Data Registry (NRDR) Dose Index Registry (DIR) with the [employer] (A[employer]). RADIATION OPTIMIZATION: All CT scans at this facility use at least one of these dose optimization te chniques: automated exposure control; mA and/or kV adjustment per patient size (includes targeted exa ms where dose is matched to clinical indication); or iterative reconstruction.
--- NOTE | 2023-03-20 12:35 | ED.GENADUL_ITS ---
Discharge Plan Disposition Patient Disposition: Home Condition: Stable Discharge Details Clinical Impression: Constipation, Flank pain Primary Care Provider: Bunny Horne ED Provider: Fidelina Gaffney Home Meds and New Rx's Prescriptions: Continued clobetasol-emollient 15 GM cream 15 gm Topical DIRECTED Patient Comments: pt reports not taking Ketoconazole 15 GM CREAM..G. 15 gm Topical PRN Patient Comments: pt reports not taking albuterol sulfate [ProAir HFA] 90 mcg/actuation HFA aerosol inhaler 2 puff IH Q6H PRN gabapentin 600 mg tablet 1,200 tab PO QAM Patient Comments: TAKE 2 TABLET BY MOUTH EVERY NIGHT ibuprofen 800 mg tablet 800 mg PO Q8H PRNQty: 60 3RF Patient Comments: pt reports not taking trazodone 50 mg tablet 100 mg DAILY Patient Comments: TKAE 1-2 TABLETS BY MOUTH AT NIGHT OF SLEEP STUDY NEEDED psyllium Packet 1 packet PO DAILY ondansetron 4 mg Tablet,Disintegrating 4 mg PO Q8H PRN PRNQty: 20 0RF cholecalciferol (vitamin D3) [Vitamin D3] 50 mcg (2,000 unit) Tablet 50 mcg PO DAILY Discharge Instructions Instructions: Constipation (ED), Flank Pain (ED) Additional Instructions: CT shows some constipation. If you do not have a bowel movement the next 2 to 3 days please follow-up with your PCP to discuss a small bowel follow-through test. Follow up with primary care provider in 3-5 days. Return to ED sooner if any worsening or concerns. Increase oral fluids. Please take Tylenol or Ibuprofen with food every 4-6 hours as needed for pain and swelling. No evidence of urinary tract infection noted. Discharge Data Discharge Date/Time-TO BE ENTERED AT DEPARTURE: 03/20/23 13:53 Medical Decision Making 37-year-old male with past medical history of multiple sclerosis, Jimenez, depression and eczema hypotension obesity presents with left flank pain which began 4 days ago. No nausea vomiting diarrhea denies any fever or chills. UA here is within normal limits no evidence of UTI no hematuria no leukocytes no nitrites. He denies any heavy lifting or any other recent complaints no associated symptoms. He has been taking Tylenol. He last had Tylenol at 6 AM. He denies any abdominal pain. He is concerned due to the recent MS diagnosis that he could be having kidney issues. He did have blood work drawn approximately 5 days ago which showed within normal limits BUN/creatinine and GFR. CT abdomen pelvis without contrast ordered. 1324: Spoke with Dr. Christianson radiologist to reports that there is some swelling around his ileum, he recommends an outpatient small bowel follow-through study I will direct this to patient's primary care provider. Patient has no vomiting no diarrhea denies any abdominal pain at this time. Differential diagnosis includes but not limited to constipation. Imaging Data Radiologic Study: Imaging: CT Scan Radiologist's impression: FINDINGS: ABDOMEN: Lung Bases: Normal where visualized. Liver: Normal density. No measurable mass. Gallbladder and biliary tract: No radiodense calculus or biliary ductal dilation. Pancreas: Normal density, no abnormal calcifications or inflammatory process. Spleen: Normal. Kidneys: Normal size, contour and axis.No radiodense stones or obstructive uropathy. There is a peripherally calcified 1.1 cm lesion in the right kidney.? Adrenal glands: No mass is seen. Lymph nodes: Within normal limits.? Abdominal Aorta: Abdominal portion non-dilated. Mild atherosclerosis. PELVIS:? Bladder:Symmetric distention, no gross wall thickening. Bowel: There is diverticulosis in the colon, but no evidence of acute diverticulitis.? There is no pneumatosis.? No evidence of bowel obstruction is present.? There is wall thickening seen in the terminal ileum.? It also appears mildly enlarged.? No evidence of appendicitis.? Peritoneal cavity: No ascites, collection or mesenteric inflammatory response.? No free air.? Reproductive organs: Unremarkable as visualized.? Bones: Within normal limits. Soft Tissues: Within normal limits. IMPRESSION: 1. There is no evidence of nephrolithiasis or hydronephrosis. 2. Question of mild thick wall thickening and enlargement of the terminal ileum.? This may be distension due to stool.? Follow-up with an outpatient small-bowel follow-through barium examination is recommended for further evaluation. 3. Colonic diverticulosis without evidence of acute diverticulitis. 4. Findings were discussed with Fidelina Hernandez at 1:24 p.m. on 03/20/2023. HPI General Mode of arrival: ambulatory . Date/Time Provider Initiated Documentation: 03/20/23 10:07 . Limitations to Documentation: no limitations . Information obtained by: patient, RN notes reviewed and old records reviewed . HPI Narrative: 37-year-old male with past medical history of multiple sclerosis, Jimenez, depression and eczema hypotension obesity presents with left flank pain which began 4 days ago. No nausea vomiting diarrhea denies any fever or chills. UA here is within normal limits no evidence of UTI no hematuria no leukocytes no nitrites. He denies any heavy lifting or any other recent complaints no associated symptoms. He has been taking Tylenol. He last had Tylenol at 6 AM. He denies any abdominal pain. He is concerned due to the recent MS diagnosis that he could be having kidney issues. He did have blood work drawn approxi mately 5 days ago which showed within normal limits BUN/creatinine and GFR. Related Data Home Medications Medication Instructions Recorded Confirmed Ketoconazole 15 gm topical PRN 07/30/17 07/20/20 clobetasol-emollient 0.05 % 15 gm topical DIRECTED 07/30/17 03/20/23 topical cream albuterol sulfate 90 mcg/actuation 2 puff inhalation Q6H PRN 01/15/20 03/20/23 aerosol inhaler (ProAir HFA) ibuprofen 800 mg tablet 800 mg PO Q8H PRN #60 tabs 07/04/20 03/20/23 gabapentin 600 mg tablet 1,200 tab PO QAM 01/17/22 03/20/23 trazodone 50 mg tablet 100 mg DAILY 02/24/23 03/20/23 ondansetron 4 mg disintegrating 4 mg PO Q8H PRN PRN #20 tabs 03/05/23 03/20/23 tablet psyllium 1 packet PO DAILY 03/05/23 03/20/23 cholecalciferol (vitamin D3) 50 50 mcg PO DAILY 03/20/23 03/20/23 mcg (2,000 unit) tablet (Vitamin D3) Previous Rx's Medication Instructions Recorded ibuprofen 800 mg tablet 800 mg PO Q8H PRN #60 tabs 07/04/20 ondansetron 4 mg disintegrating 4 mg PO Q8H PRN PRN #20 tabs 03/05/23 tablet Allergies Allergy/AdvReac Type Severity Reaction Status Date / Time buprenorphine HCl Allergy Intermediate vomiting Verified 03/04/23 12:31 [From Suboxone] hives diarrhea hallucination naloxone HCl [From Suboxone] Allergy Intermediate vomiting Verified 03/04/23 12:31 hives diarrhea hallucination sertraline Allergy Mild unknown Verified 03/04/23 12:31 shellfish derived Allergy Swelling/Ed Verified 03/04/23 12:31 miguel zolmitriptan [From Zomig] AdvReac Severe Severe Verified 03/04/23 12:31 headache Ring of fire around my head propranolol [From Inderal LA] AdvReac Intermediate insomnia Verified 03/04/23 12:31 Sulfa (Sulfonamide AdvReac Intermediate Nausea Verified 03/04/23 12:31 Antibiotics) General Stated Complaint: FlankPain MASOOD: 4 Review of Systems All systems reviewed & are unremarkable except as noted in HPI and below Genitourinary Genitourinary: Reports as per HPI and Reports flank pain PFSH All Active Problems (Updated 03/20/23 @ 13:41 by Fidelina Gaffney NP) Constipation (Acute) Flank pain (Acute) Neck pain (Acute) Vertigo (Acute) Headache (Acute) Restless leg syndrome (Acute) Dizziness (Acute) Normal colonoscopy (Acute ~07/04/20) Bleeding hemorrhoids (Acute) JIMENEZ (nonalcoholic steatohepatitis) (Acute) Foot fracture (Acute) Back pain (Acute) Fall (Acute) Spermatocele (Acute) Hemorrhoid (Acute) Diarrhea (Acute) Blood in stool (Acute) Family history of Crohn's disease (Acute) Rectal or anal pain (Acute) Abdominal pain (Acute) Diabetes type 2, controlled (Acute) pt. states he no longer has this Obstructive sleep apnea (Chronic) Medical History Colonoscopy planned Depression Eczema Erectile dysfunction Fatigue Hypertension Migraine Obesity, Class III, BMI 40-49.9 (morbid obesity) Opiate abuse, episodic Remote history, on methadone x10 years recurrent gi bleed Sleep apnea Swelling of right lower extremity Tobacco abuse Wheezing Surgical History Colonoscopy - [facility] 2010- normal 07/04/20 - History of colonoscopy (~07/04/20) Family History Grandmother No problems noted. Other Crohn's colitis Social History Smoking/Tobacco Use Status: Former Tobacco Use Quit Date: 07/29/14 Smoking risk assessment performed?: Yes Alcohol Intake: former Drug use: Daily Substance use type: marijuana Housing: apartment Do you feel safe at home: Yes Do you feel safe in your relationship?: Yes Exam Narrative Exam Narrative: Constitutional: Alert and oriented x3. Appears stated age. Obese body habitus. Head: Normocephalic, no trauma. Eyes: Pupils PERRL, Red reflex noted, EOM's intact. Eyelids symmetrical without lesions, discharge, or swelling. ENT: Bilateral TM's WNL, External ear normal to inspection, no mastoid TTP, swelling, or erythema, Nasal turbinates WNL, no nasal discharge. Normal dentition, Posterior pharynx WNL, no exudate. Chest: RRR, Normal S1, S2, distal pulses intact. Resp: Lungs clear to auscultation bilaterally, no wheezes, rales, or rhonchi. Abdomen: Soft, non-distended, Normoactive bowel sounds all 4 quads. Musculoskeletal: Normal gait, 5/5 strength to all four extremities. Skin: No suspicious rashes or lesions. Capillary refill less than 2 sec. Neurologic: Cranial nerves II-XII intact. Alert and oriented x 3. Motor: No deficits noted. Hematologic/Lymphatic: No ecchymosis, no lymphadenopathy. Course Vital Signs Vital signs: Vital Signs Temperature 37 C 03/20/23 10:42 Pulse 88 03/20/23 10:42 Respiratory Rate 22 03/20/23 10:42 Blood Pressure 110/82 03/20/23 10:42 Pulse Oximetry 97 03/20/23 10:42 Temperature 37 C 03/20/23 10:42 Temperature Source Temporal Artery Scan 03/20/23 10:42 Pulse 88 03/20/23 10:42 Respiratory Rate 22 03/20/23 10:42 Respiratory Effort Normal, Non-Labored 03/20/23 11:08 Blood Pressure 110/82 03/20/23 10:42 Blood Pressure Position Sitting 03/20/23 10:42 Pulse Oximetry 97 03/20/23 10:42 Oxygen Delivery Method Room Air 03/20/23 10:42 Oxygen Flow Rate 0 03/20/23 10:42 Pain Level 5 03/20/23 11:08 Lab/Test Results Lab/Test Results: Laboratory Tests Range/Units 03/20/23 10:41 Urine Color (Yellow) Yellow Urine Clarity (Clear) Clear Urine pH (5-8) 7.0 Ur Specific [place] (1.005-1.025) 1.015 Urine Protein (Negative) mg/dL Negative Urine Ketones (Negative) mg/dL Negative Urine Blood (Negative) Negative Urine Nitrite (Negative) Negative Urine Bilirubin (Negative) Negative Urine Urobilinogen (Up to 0.2) mg/dL 0.2 Ur Leukocyte Esterase (Negative) Negative Urine Glucose (Negative) mg/dL Negative
[2023-03-20 13:48] VITALS: BP 133/89; PULSE 88; RESP 21; TEMP 36.8; O2SAT 96
== END 2023-03-20 13:53 | disposition home or self-care (01) ==
PROVIDERS: Emergency Provider Registered Nurse Emergency; PCP Physician Assistant
DX: K59.00 Constipation, unspecified (principal); R10.9 Unspecified abdominal pain
CPT/HCPCS: 99283; 74176; 81003

== ENCOUNTER 2023-05-14 02:11 | Outpatient (RCR) | payer MEDICAID, SELFPAY ==
[2023-04-30] VITALS (7 sets, daily range): BP systolic 101–137; BP diastolic 59–82; PULSE 74–106; RESP 17–18; TEMP 36.7–37.2; O2SAT 96–97
[2023-04-30] MEDS: Normal Saline Flush 10 ML SYR IVP (09:17)
[2023-04-30] MEDS: Acetaminophen 325 MG TAB 650 MG PO (09:17)
[2023-04-30] MEDS: diphenhydrAMINE 50 MG/ML VIAL IVP (09:20)
[2023-04-30] MEDS: Water,Injection,Bacteriostatic 30 ML VIAL IJ (09:25)
[2023-04-30] MEDS: methylPREDNISolone SUCC 125 MG VIAL IVP (09:25)
[2023-04-30] MEDS: riTUXimab-PVVR 500 MG in Normal Saline 200 ML 62.5 MG IVPB (09:47)
[2023-05-14] MEDS: Acetaminophen 325 MG TAB 650 MG PO (10:03)
[2023-05-14] MEDS: Dexamethasone 10 MG/ML VIAL 20 MG IVP (10:03)
[2023-05-14 10:05] VITALS: BP 131/92; PULSE 85; RESP 17; TEMP 36.7; O2SAT 96
[2023-05-14] MEDS: Normal Saline Flush 10 ML SYR IVP (10:05)
[2023-05-14] MEDS: riTUXimab-PVVR 500 MG in Normal Saline 200 ML 62.5 MG IVPB (10:11)
[2023-05-14 10:35] VITALS: BP 134/84; PULSE 79; RESP 17; TEMP 36.9; O2SAT 98
[2023-05-14 11:05] VITALS: BP 133/87; PULSE 72; RESP 17; TEMP 37; O2SAT 97
[2023-05-14 11:35] VITALS: BP 142/90; PULSE 98; RESP 17; TEMP 36.9; O2SAT 96
[2023-05-14 12:05] VITALS: BP 129/98; PULSE 89; RESP 17; TEMP 36.5; O2SAT 96
== END 2023-05-28 23:59 | disposition home or self-care (01) ==
LOC: INF 02:11
PROVIDERS: PCP Nurse Practitioner Family; Visit Provider Psychiatry & Neurology Neurology
DX: G35 Multiple sclerosis (principal)
CPT/HCPCS: 96365; 96366; 96374; 96375; 96413; 96415; J1100; J1200; J2930; Q5119

== ENCOUNTER 2023-07-10 08:58 | Emergency (ER) | payer MEDICAID, SELFPAY ==
[2023-07-10] VITALS (8 sets, daily range): BP systolic 146–172; BP diastolic 87–102; PULSE 99–116; RESP 16–18; TEMP 36.6–37.3; O2SAT 96–99
--- NOTE | 2023-07-10 09:33 | ED.GENADUL_ITS ---
Discharge Plan Disposition Patient Disposition: Home Condition: Stable Discharge Details Clinical Impression: Lumbar back pain with radiculopathy affecting left lower extremity, Multiple sclerosis exacerbation Primary Care Provider: Clayton Becker ED Provider: Fidelina Gaffney Home Meds and New Rx's Prescriptions: New pregabalin [Lyrica] 25 mg capsule 25 mg PO BID 30 Days Qty: 60 0RF Rx Instructions: Take 1 tablet twice daily by mouth as directed No Action methocarbamol 750 mg tablet 750 mg PO QID PRN (Reason: muscle spasm) Qty: 60 0RF lorazepam [Ativan] 1 mg tablet 1 mg PO DAILY PRN (Reason: anxiety) Qty: 20 0RF modafinil 100 mg tablet 100 mg PO DAILY Qty: 30 0RF nitroglycerin 0.4 % (w/w) ointment 1 inch LA BID Qty: 30 0RF rituximab 10 mg/mL concentrate 500 mg IV [id number] prednisone 20 mg tablet 40 mg PO DAILY Qty: 10 0RF Rx Instructions: take in the morning with food. take 2 pills daily x 5 days clobetasol-emollient 15 GM cream 15 gm Topical DIRECTED Patient Comments: pt reports not taking albuterol sulfate [ProAir HFA] 90 mcg/actuation HFA aerosol inhaler 2 puff IH Q6H PRN (Reason: shortness of breath or wheezing) Qty: 8.5 1RF sildenafil 100 mg tablet 100 mg PO DAILY PRN (Reason: ED) Qty: 90 0RF Rx Instructions: administer 30 minutes to 4 hours before activity trazodone 50 mg tablet 100 mg PO DAILY Qty: 90 4RF cyclobenzaprine 10 mg tablet 10 mg PO TID PRN (Reason: muscle spasm) Qty: 30 0RF gabapentin 600 mg tablet 1,200 tab PO QAM Patient Comments: TAKE 2 TABLET BY MOUTH EVERY NIGHT ibuprofen 800 mg tablet 800 mg PO Q8H PRNQty: 60 3RF Patient Comments: pt reports not taking psyllium Packet 1 packet PO DAILY ondansetron 4 mg Tablet,Disintegrating 4 mg PO Q8H PRN PRNQty: 20 0RF cholecalciferol (vitamin D3) [Vitamin D3] 50 mcg (2,000 unit) Tablet 50 mcg PO DAILY Discharge Instructions Instructions: Self-Care Measures with a Chronic Disease (ED), Lumbar Radiculopathy (ED) Additional Instructions: The MRI shows no difference from the previous MRI you had in February. Please take the Lyrica twice daily as directed. Please keep your appointment with [facility] neurology as previously scheduled. If you have any worsening symptoms please call them for sooner appointment. If you have any worsening falls, loss of bowel or bladder control or numbness or tingling in your groin if you have problems urinating. Follow up with primary care provider/neurology in 3-5 days if needed. Return to ED sooner if any worsening as noted above or concerns. Increase oral fluids. Please take your previously prescribed medications Referrals: [facility] [Outside] - Return if symptoms worsen Clayton Becker NP [Primary Care Provider] - Discharge Data Discharge Date/Time-TO BE ENTERED AT DEPARTURE: 07/10/23 14:42 Medical Decision Making 38-year-old male presents to the ER with a chief complaint of left posterior leg shooting sharp pain down to his foot, he did fall this morning in the bathroom. He was recently diagnosed with MS proximately 2 to 3 months ago and is awaiting is no longer taking gabapentin due to decreased efficacy. Denies any loss of bowel or bladder control. He does report some constipation occasionally. Denies any saddle anesthesia denies any urinary hesitancy. Patient last had MRI of his thoracic spine and C-spine in February. He has seen local neurologist here. Will page Dr. Lang, to consider MRI of his T and L-spine however there is no signs of cauda equina. According to his last MRI he does have some discand foraminal narrowing noted at T10-11. 1000: Spoke with neurology Dr. Lang regarding patient case in detail. I did discuss options for MRI imaging if available and neuroleptic medication. She does recommend Pregabalin at this time which was ordered at 25 mg. Will consider an additional stent of prednisone if needed. 1005: Spoke with radiology and satellite dish technician regarding availability of MRI, they were are able to do the MRI without at this time and will bring him back later for the MRI with. MR T and L-spine shows no worsening of the previous herniated disc there is severe left foraminal narrowing. Which may be explanation for patient's symptoms. I will discharge patient with Lyrica with instructions to follow-up with [facility] as previously scheduled will discuss getting in a sooner appointment if any worsening symptoms. On patient reevaluation he is feeling much better. He does have upcoming appointments for physical therapy and followed by neurosurgery at [facility]. Discussed return instructions he verbalizes understanding. I did discuss that this is MS exacerbation versus lumbar radiculopathy. This text was generated using [employer] dictation system, please disregard any oddities of phrase or misspellings. Medical Records Medical records reviewed: Yes I reviewed the patient's medical records. Medical records narrative: MRI T-spine February 2023 MR THORACIC SPINE WO/W EXAM: MR THORACIC SPINE WO/W CLINICAL HISTORY: NEW DX MS. TECHNIQUE: Multiplanar multisequence MRI of the Thoracic spine was performed. CONTRAST MATERIAL: IV Contrast: 20 mL of Dotarem contrast administered. COMPARISON: CR CHEST 2 VIEWS PA,LAT from 07/04/2012 CR CHEST 2 VIEWS PA,LAT from 03/17/2013 CR XR LUMBAR SPINE COMPLETE from 08/26/2019 MR MR CERVICAL SPINE WO/W from 03/05/2023 FINDINGS: Exam is limited by patient body habitus and motion. Bones: There is a mild compression fracture of T9 and T10 which appear unchanged from prior chest x-ray. Mild scoliosis. There is fatty marrow replacements which could indicate red marrow reconversion. No abnormal high signal lesions are seen. Cord: The thoracic cord is normal size and signal intensity. No intrinsic cord lesion is present. Discs: There is a central disc protrusion at T8-9 which effaces the anterior CSF space. At T10-11, there is a left-sided focal disc protrusion arm effacing the left a nterior CSF space and lateral recess and appears to impinge on the left anterior aspect of the cord. This also causes severe left neural foraminal narrowing. Mild disc bulging and small endplate osteophytes are seen at the remaining levels. Soft tissues: Normal. There is no evidence of suspicious enhancement. IMPRESSION: Central disc protrusion at T8-9. Large left sided disc protrusion at T 10 11 appears to impinge on the cord as well as cause severe left neural foraminal narrowing. Lab Data Lab results reviewed: Yes I reviewed the patient's lab results. Labs: Laboratory Tests Range/Units 07/10/23 11:08 Sodium (136-145) mmol/L 142 Potassium (3.5-5.1) mmol/L 3.4 L Chloride (98-107) mmol/L 106 Carbon Dioxide (21.0-32.0) mmol/L 28.6 Anion Gap (3-11) mmol/L 7.4 BUN (7-18) mg/dL 8 Creatinine (0.70-1.30) mg/dL 0.8 Est GFR (CKD-EPI 2020) (mL/min/1.73m2) 116.90 Glucose (74-106) mg/dL 110 H Calcium (8.5-10.1) mg/dL 8.6 Total Bilirubin (0.2-1.0) mg/dL 0.4 AST (15-37) U/L 10 L ALT (16-63) U/L 16 Alkaline Phosphatase (46-116) U/L 45 L Total Protein (6.4-8.2) g/dL 6.6 Albumin (3.4-5.0) g/dL 3.0 L HPI General Mode of arrival: ambulatory (Cane) . Date/Time Provider Initiated Documentation: 07/10/23 09:18 . Limitations to Documentation: no limitations . Information obtained by: patient, family, RN notes reviewed and old records reviewed . HPI Narrative: 38-year-old male presents to the ER with a chief complaint of left posterior leg shooting sharp pain down to his foot, he did fall this morning in the bathroom. He was recently diagnosed with MS proximately 2 to 3 months ago and is awaiting is no longer taking gabapentin due to decreased efficacy. Denies any loss of bowel or bladder control. He does report some constipation occasionally. Denies any saddle anesthesia denies any urinary hesitancy. Patient last had MRI of his thoracic spine and C-spine in February. He has seen local neurologist here. Related Data Home Medications Medication Instructions Recorded Confirmed clobetasol-emollient 0.05 % 15 gm topical DIRECTED 07/30/17 07/02/23 topical cream ibuprofen 800 mg tablet 800 mg PO Q8H PRN #60 tabs 07/04/20 07/02/23 gabapentin 600 mg tablet 1,200 tab PO QAM 01/17/22 07/02/23 ondansetron 4 mg disintegrating 4 mg PO Q8H PRN PRN #20 tabs 03/05/23 07/02/23 tablet psyllium 1 packet PO DAILY 03/05/23 07/02/23 cholecalciferol (vitamin D3) 50 50 mcg PO DAILY 03/20/23 07/02/23 mcg (2,000 unit) tablet (Vitamin D3) lorazepam 1 mg tablet (Ativan) 1 mg PO DAILY PRN anxiety #20 tabs 06/21/23 07/02/23 methocarbamol 750 mg tablet 750 mg PO QID PRN muscle spasm #60 06/21/23 07/02/23 tabs modafinil 100 mg tablet 100 mg PO DAILY #30 tabs 06/21/23 07/02/23 nitroglycerin 0.4 % (w/w) rectal 1 inch LA BID #30 grams 06/21/23 07/02/23 ointment rituximab 10 mg/mL 500 mg IV [id number] 06/21/23 07/02/23 concentrate,intravenous prednisone 20 mg tablet 40 mg (2 x 20 mg) PO DAILY #10 tabs 07/02/23 07/02/23 albuterol sulfate 90 mcg/actuation 2 puff inhalation Q6H PRN 07/03/23 aerosol inhaler (ProAir HFA) shortness of breath or wheezing #8.5 grams cyclobenzaprine 10 mg tablet 10 mg PO TID PRN muscle spasm #30 07/03/23 tabs sildenafil 100 mg tablet 100 mg PO DAILY PRN ED #90 tabs 07/03/23 trazodone 50 mg tablet 100 mg (2 x 50 mg) PO DAILY #90 07/03/23 tabs pregabalin 25 mg capsule (Lyrica) 25 mg PO BID Radiculopathy 30 days 07/10/23 #60 caps Previous Rx's Medication Instructions Recorded ibuprofen 800 mg tablet 800 mg PO Q8H PRN #60 tabs 07/04/20 ondansetron 4 mg disintegrating 4 mg PO Q8H PRN PRN #20 tabs 03/05/23 tablet lorazepam 1 mg tablet (Ativan) 1 mg PO DAILY PRN anxiety #20 tabs 06/21/23 methocarbamol 750 mg tablet 750 mg PO QID PRN muscle spasm #60 06/21/23 tabs modafinil 100 mg tablet 100 mg PO DAILY #30 tabs 06/21/23 nitroglycerin 0.4 % (w/w) rectal 1 inch LA BID #30 grams 06/21/23 ointment prednisone 20 mg tablet 40 mg (2 x 20 mg) PO DAILY #10 tabs 07/02/23 albuterol sulfate 90 mcg/actuation 2 puff inhalation Q6H PRN 07/03/23 aerosol inhaler (ProAir HFA) shortness of breath or wheezing #8.5 grams cyclobenzaprine 10 mg tablet 10 mg PO TID PRN muscle spasm #30 07/03/23 tabs sildenafil 100 mg tablet 100 mg PO DAILY PRN ED #90 tabs 07/03/23 trazodone 50 mg tablet 100 mg (2 x 50 mg) PO DAILY #90 07/03/23 tabs pregabalin 25 mg capsule (Lyrica) 25 mg PO BID Radiculopathy 30 days 07/10/23 #60 caps Allergies Allergy/AdvReac Type Severity Reaction Status Date / Time buprenorphine HCl Allergy Intermediate vomiting Verified 07/02/23 10:08 [From Suboxone] hives diarrhea hallucination naloxone HCl [From Suboxone] Allergy Intermediate vomiting Verified 07/02/23 10:08 hives diarrhea hallucination sertraline Allergy Mild unknown Verified 07/02/23 10:08 shellfish derived Allergy Swelling/Ed Verified 07/02/23 10:08 miguel zolmitriptan [From Zomig] AdvReac Severe Severe Verified 07/02/23 10:08 headache Ring of fire around my head guaifenesin [From Quibron] AdvReac Intermediate Verified 07/02/23 10:08 methylprednisolone AdvReac Intermediate emotional Verified 07/02/23 10:08 lability with high doses propranolol [From Inderal LA] AdvReac Intermediate insomnia Verified 07/02/23 10:08 Sulfa (Sulfonamide AdvReac Intermediate Nausea Verified 07/02/23 10:08 Antibiotics) sumatriptan [From Imitrex] AdvReac Intermediate Verified 07/02/23 10:08 theophylline [From Quibron] AdvReac Intermediate Verified 07/02/23 10:08 General Stated Complaint: Nk/Back Pain MASOOD: 3 Review of Systems All systems reviewed & are unremarkable except as noted in HPI and below Constitutional Constitutional: Reports as per HPI, Denies body ache(s), Denies fever(s), Reports frequent falls, Denies headache(s) and Reports weakness (Left leg) ENT Ears, Nose, Mouth, and Throat: Denies headache(s) Neurologic Neurologic: Reports frequent falls, Denies headache(s) and Reports weakness (Left leg) PFSH All Active Problems (Updated 07/10/23 @ 14:14 by Fidelina Gaffney NP) Multiple sclerosis exacerbation (Acute) Lumbar back pain with radiculopathy affecting left lower extremity (Acute) Anal fissure (Acute) Depression (Chronic) Cyst of tunica albuginea testis (Acute) Lumbar disc herniation (Acute) Hypertension (Chronic) GERD (gastroesophageal reflux disease) (Chronic) Obesity, Class III, BMI 40-49.9 (morbid obesity) (Acute) Post traumatic stress disorder (Acute) Multiple sclerosis (Chronic) Adjustment disorder (Chronic) Anxiety and depression (Chronic) 06/18/23 Self reported. -hb Imbalance (Acute) Restless leg syndrome (Acute) ROCK (nonalcoholic steatohepatitis) (Acute) Spermatocele (Chronic) Right Obstructive sleep apnea (Chronic) Medical History Urinary retention Hemorrhoid Foot fracture Right Eczema Erectile dysfunction Opiate abuse, episodic Remote history, on methadone x10 years Migraine Surgical History H/O hand surgery ~2007 At [facility]. Right hand ring and last finger per report. -hb Status post exam under anesthesia with hemorrhoid banding Performed on 07/04/[address] Reynolds. -hb S/P tonsillectomy 1994 Per patient. -hb History of colonoscopy (~07/04/20) Colonoscopy - MAC 2009- normal 07/04/20 - Family History Mother Colon cancer Depression Substance use disorder FH: mental illness Father Diabetes Heart disease Hypertension Sister Depression FH: mental illness Other Crohn's colitis Social History Smoking/Tobacco Use Status: Former Tobacco Use tobacco type: cigarettes, cigars and e-cigarettes Quit Date: 07/29/14 Tobacco: How many years used: 17 Smokeless tobacco user: chewing tobacco Smoking risk assessment performed?: Yes Alcohol Intake: current Alcohol Intake frequency: holidays/special occasions only Alcohol type: wine Drug use: Daily Substance use type: does not use Adopted: No Caregiver/Support person: No Foster care: No Household members: significant other Housing: apartment Communication Needs: None Education Level: college (Bachelors degree) Do you need help understanding health information?: Rarely current occupation: none Pets and animals: Yes Pets and animals: cat(s) and dog(s) Sexually active: No Do you think of yourself as: don't know Working smoke detector in home: Yes Carbon monox detector in home: Yes Firearms in home: No Do you feel safe at home: Yes Do you feel safe in your relationship?: Yes Additional Social history: Lives with Partner. Yahir, RN 07/10/23 Exam Neuro Cranial Nerves: able to rotate head bilaterally and able to elevate shoulders bilaterally Cognition: normal cognition Speech: speech normal Motor: no pronator drift, no fasciculations, movement abnormality noted, no tremors, muscle tone abnormal and strength abnormal left distal lower extremity flexion and extension Sensory Exam: lower extremity left light-touch abnormal in a dermatomal distribution Plantar Reflexes: Downgoing: left (Decreased plantarflexion foot) and Upgoing: left (Neg bbinbski, able to extend great toe) Course Vital Signs Vital signs: Vital Signs Temperature 37.3 C 07/10/23 09:09 Pulse 115 H 07/10/23 09:09 Respiratory Rate 18 07/10/23 09:09 Blood Pressure 157/98 H 07/10/23 09:09 Pulse Oximetry 96 07/10/23 09:09 Temperature 37.3 C 07/10/23 09:09 Temperature Source Skin 07/10/23 09:09 Pulse 115 H 07/10/23 09:09 Respiratory Rate 18 07/10/23 09:09 Blood Pressure 157/98 H 07/10/23 09:09 Pulse Oximetry 96 07/10/23 09:09 Oxygen Delivery Method Room Air 07/10/23 09:09 Oxygen Flow Rate 0 07/10/23 09:09 Pain Level 4 07/10/23 09:09 Comment pain increases with movement to 7-9/10 07/10/23 09:09
--- NOTE | 2023-07-10 09:45 | DI.MRI_ITS ---
Exam(s) MR THORACIC SPINE WO/W EXAM: MR THORACIC SPINE WO/W CLINICAL HISTORY: left lower leg radiculopathy, Hx of MS, Fall. TECHNIQUE: Multiplanar multisequence MRI of the Thoracic spine was performed. CONTRAST MATERIAL: IV Contrast: 20 mL of Dotarem contrast administered. COMPARISON: MR MR THORACIC SPINE WO/W from 03/05/2023 FINDINGS: Bones: The vertebral body heights are well maintained. Mild scoliosis convex toward the left in the upper to mid thoracic region.. The signal characteristics are unremarkable except for degenerative s ignal changes in the endplates at T9 and T10. There are old mild compression deformities at these le vels.. Cord: The thoracic cord is normal size and signal intensity. No intrinsic cord lesion is present. Discs: Stable appearance of central disc protrusion at T8-9. Stable appearance of left-sided disc pr otrusion at T10-11. six again appears to impinge on the left side of the cord. Soft tissues: Normal. There is no evidence of suspicious enhancement. IMPRESSION: No acute abnormality in the spine. No abnormal areas of enhancement. Stable disc protrusions at T8-9 and T 10 -11. DATA REPOSITORY:
--- NOTE | 2023-07-10 09:45 | DI.MRI_ITS ---
Exam(s) MR LUMBAR SPINE WO/W EXAM: MR LUMBAR SPINE WO/W CLINICAL HISTORY: Left leg radiculopathy, Hx of MS. TECHNIQUE: Multiplanar multisequence MRI of the Lumbar Spine was performed. Additional pre and post gadolinium fat suppressed T1 sagittal and axial sequences were performed. CONTRAST MATERIAL: IV Contrast: 20 mL of Dotarem contrast administered. COMPARISON: MR MR LUMBAR SPINE WO from 09/21/[address] RENAL COLIC WO from 03/20/2023 FINDINGS: Bones: The last intervertebral disc space is designated the L5/S1 level for the numbering purpose of this examination. The vertebral body heights are well maintained. Alignment is satisfactory. The marrow shows diffusely low signal on all sequences. No suspicious lesions are seen. Findings ma y represent diffuse red marrow reconversion.. Cord: The conus tip ends at the T12 level. It is of normal size and signal intensity. T12-L1: No disc herniations or bulges are present. No central spinal canal or neural foraminal stenos is. L1-2: No disc herniations or bulges are present. No central spinal canal or neural foraminal stenosis . L2-3: Mild loss of disc height. Mild disc bulging. Mild to moderate left neural foraminal narrowing . No central spinal stenosis. L3-4: Decreased size of previously noted central disc herniation. Calcification of the disc margins are seen on prior CT. There is improvement in the amount of central canal stenosis, moderate. There is moderate right neural foraminal narrowing. L4-5: Stable appearance of central disc protrusion. Posterior margins of the disc are seen to be peña cified by prior CT. Mild central canal stenosis. Facet degenerative changes, greater on the right, causing severe right neural foraminal narrowing. Moderate left neural foraminal narrowing. L5-S1: No disc herniations or bulges are present. No central spinal canal stenosis. Moderate right n eural foraminal narrowing. The visualized SI joints and sacrum are well maintained. Soft tissues: The paraspinal soft tissues are unremarkable. There is no evidence of suspicious enhancement. IMPRESSION: Decreased size of previously noted disc herniation at L3-4 with improvement in degree of central samantha l stenosis. Stable appearance of central disc protrusion at L4-5. Multilevel bilateral neural mason inal narrowing. DATA REPOSITORY:
[2023-07-10] MEDS: Lidocaine 5% Patch 1 PATCH TP (09:55)
[2023-07-10] MEDS: Pregabalin 50 MG CAP PO (10:16)
[2023-07-10 11:34] LABS: ALT 16 U/L (16-63); AST 10 U/L (15-37); Alkaline Phosphatase 45 U/L (46-116); Anion Gap 7.4 mmol/L (3-11); BUN 8 mg/dL (7-18); Bilirubin, Total 0.4 mg/dL (0.2-1.0); CO2 28.6 mmol/L (21.0-32.0); CREATININE 0.8 mg/dL (0.70-1.30); Calcium 8.6 mg/dL (8.5-10.1); Chloride 106 mmol/L (98-107); Glucose 110 mg/dL (74-106); Potassium 3.4 mmol/L (3.5-5.1); Sodium 142 mmol/L (136-145); Total Protein 6.6 g/dL (6.4-8.2)
[2023-07-10] MEDS: Ketorolac 15 MG/ML VIAL 30 MG IVP (11:51)
[2023-07-10] MEDS: Normal Saline 1,000 ML 1000 ML IV (11:52)
[2023-07-10] MEDS: Normal Saline Flush 10 ML SYR IVP (12:20)
[2023-07-10] MEDS: Gadoterate meglumine 20 ML SYRINGE IVP (12:21)
== END 2023-07-10 14:42 | disposition home or self-care (01) ==
PROVIDERS: Emergency Provider Registered Nurse Emergency; PCP Nurse Practitioner Family
DX: M25.552 Pain in left hip (principal); M51.16 Intervertebral disc disorders with radiculopathy, lumbar region; M48.061 Spinal stenosis, lumbar region without neurogenic claudication; M51.24 Other intervertebral disc displacement, thoracic region; G35 Multiple sclerosis
CPT/HCPCS: 72158; 80053; 96361; 96374; 96375; 99285; 72157; 99284; J1885

== ENCOUNTER 2023-08-08 04:00 | Outpatient (CLI) | payer MEDICAID, SELFPAY ==
[2023-08-08] MEDS: Levalbuterol HFA 15 GM INH 4 PUFF IH (11:28)
[2023-08-08] MEDS: Inhaler, Assist Device 1 EACH MC (11:28)
--- NOTE | 2023-08-12 10:52 | W.PFT ---
Date of service: 08/08/23 Time of Service: 08:06 Pulmonary Function Test Result Indications: Cough Interpretation Spirometry: There is mild airflow limitation. No significant bronchodilator response. Normal muscle pressures. Lung Volumes: There is hyperinflation and air trapping. Diffusion Capacity: Elevated diffusion likely due to obesity Airway Pressure: Normal airways resistance. Impression Mild airflow obstruction with air trapping and a normal diffusion. This could represent chronic bronchitis (COPD) particularly given smoking history, however asthma with airway remodelling is not excluded. Clinical Correlation therefore is recommended.
== END 2023-08-08 04:01 | disposition home or self-care (01) ==
LOC: RT 04:00
PROVIDERS: PCP Nurse Practitioner Family; Visit Provider Nurse Practitioner Family
DX: R06.00 Dyspnea, unspecified (principal); R94.2 Abnormal results of pulmonary function studies
CPT/HCPCS: 94060; 94726; 94729

== ENCOUNTER 2023-08-09 12:29 | Outpatient (REF) | payer MEDICAID, SELFPAY ==
[2023-08-09 21:25] LABS: ESR 27 mm/hr (0-15)
[2023-08-09 21:48] LABS: ALT 21 U/L (16-63); AST 13 U/L (15-37); Albumin 3.3 g/dL (3.4-5.0); Alkaline Phosphatase 59 U/L (46-116); Anion Gap 8.7 mmol/L (3-11); BUN 9 mg/dL (7-18); Bilirubin, Total 0.5 mg/dL (0.2-1.0); CO2 26.3 mmol/L (21.0-32.0); CREATININE 0.8 mg/dL (0.70-1.30); Chloride 105 mmol/L (98-107); Ferritin 270 ng/mL (26-388); Glucose 111 mg/dL (74-106); Potassium 4.2 mmol/L (3.5-5.1); Sodium 140 mmol/L (136-145); Total Protein 6.9 g/dL (6.4-8.2)
[2023-08-12 13:01] LABS: Lab Add On Test DONE
[2023-08-13 11:16] LABS: Lyme Ab w Rflx to Lyme Confirm Positive (Negative)
[2023-08-13 12:34] LABS: Lyme IgG Ab Positive (Negative); Lyme IgM Ab Positive (Negative)
[2023-08-15 22:39] LABS: Anaplasma phagocytophilum Negative (Negative); B. miyamotoi PCR Negative (Negative); Babesia divergens/MO-1 Negative (Negative); Babesia duncani Negative (Negative); Babesia microti Negative (Negative); Ehrlichia chaffeensis Negative (Negative); Ehrlichia ewingii/canis Negative (Negative); Ehrlichia muris eauclairensis Negative (Negative)
== END 2023-08-09 12:30 | disposition home or self-care (01) ==
LOC: LBN 12:29
PROVIDERS: PCP Nurse Practitioner Family; Visit Provider Nurse Practitioner Family
DX: G25.81 Restless legs syndrome (principal); G35 Multiple sclerosis; M25.59 Pain in other specified joint
CPT/HCPCS: 80053; 85652; 86617; 87798; 82728; 86140; 86618

== ENCOUNTER 2023-08-13 04:49 | Outpatient (CLI) | payer MEDICAID, SELFPAY ==
[2023-08-13 08:22] LABS: Abs Immature Grans 0.03 10^3/uL (0.0-0.06); Absolute Basophil Count 0.07 10^3/uL (0.0-0.2); Absolute Lymphocyte Count 1.34 10^3/uL (1.2-3.4); Basophils % 0.6; Eosinophils % 4.4; HCT 41.8 % (40.0-50.0); HGB 14.2 g/dL (13.5-17.5); Immature Grans % 0.3; Lymphocytes % 11.9; MCH 29.8 pg (27.0-33.0); MCV 88 fL (80-95); MPV 8.9 fL (8.0-11.0); Monocytes % 6.7; Neutrophils % 76.1; Platelet Count 405 10^3/uL (130-400); RBC 4.77 10^6/uL (4.36-5.78); RDW 13.6 % (11.8-14.1); RDW-SD 43.7 fL; WBC 11.26 10^3/uL (4.4-10.8)
[2023-08-13 08:25] LABS: Absolute Monocyte Count 0.75 10^3/uL (0.1-0.8); Absolute Neutrophil Count 8.57 10^3/uL (1.2-6.7)
[2023-08-13 09:50] LABS: Lab Add On Test DONE
[2023-08-13 09:57] LABS: ESR 24 mm/hr (0-15)
[2023-08-18 16:48] LABS: Testosterone, Free 6.28 ng/dL (4.65-18.1); Testosterone, Total 336 ng/dL (240-950)
== END 2023-08-13 04:50 | disposition home or self-care (01) ==
LOC: LBO 04:49
PROVIDERS: PCP Nurse Practitioner Family; Visit Provider Nurse Practitioner Family
DX: G35 Multiple sclerosis (principal); N52.9 Male erectile dysfunction, unspecified
CPT/HCPCS: 36415; 84402; 84403; 85652; 85025

== ENCOUNTER → 2023-09-19 00:46 | Outpatient (CLI) | payer MEDICAID, SELFPAY ==
--- NOTE | 2023-09-19 09:45 | DI.RAD_ITS ---
Exam(s) XR CHEST 2V PA LATERAL EXAM: XR CHEST 2V PA LATERAL CLINICAL HISTORY: COPD,MS, dyspnea,J44.9 TECHNIQUE: 2D digital imaging was performed of the chest. Two images were obtained. PA and lateral views were obtained. COMPARISON: CR CHEST 2 VIEWS PA,LAT from 03/17/2013 FINDINGS: MEDIASTINUM: Normal. HEART: Normal. PULMONARY VASCULATURE: Normal. LUNGS: The lungs are hyperinflated with flattened diaphragms suggesting underlying COPD. No focal co nsolidating infiltrates are seen. PLEURAL SPACE: No pleural effusion or pneumothorax. BONE:Within normal limits for the patient's age. OTHER FINDINGS:Normal. IMPRESSION: 1. No acute pulmonary findings. 2. COPD. DATA REPOSITORY: RADIATION DOSE DELIVERED:
== END ==
PROVIDERS: PCP Nurse Practitioner Family; Visit Provider Student in an Organized Health Care Education/Training Program
DX: J44.9 Chronic obstructive pulmonary disease, unspecified (principal)
CPT/HCPCS: 71046

== ENCOUNTER 2023-11-01 17:43 | Emergency (ER) | payer MEDICAID, SELFPAY ==
[2023-11-01 17:45] VITALS: BP 176/113; PULSE 148; RESP 18; TEMP 37.2; O2SAT 96
--- NOTE | 2023-11-01 17:45 | RT.EKG_ITS ---
APPROVED REPORT Exam: Resting ECG Reason for Exam: Tachycardia Patient Location: E HR:148 bpm ECG Measurements Heart Rate 148 AXIS CA 106 P 51 QRSd 100 QRS -57 QT 281 T 27 QTc 442 Conclusion Sinus tachycardia...rate> 99 Inferior infarct, old...Q >35mS, II III aVF Sinus tachycardia rate of 148 bpm. Left axis deviation no signs of LVH based on voltage criteria. P oor R wave progression.? V2 V3 reversal. No ST segment abnormalities. No T wave versions. Compare d to prior dated last year sinus tachycardia is new.
--- NOTE | 2023-11-01 17:47 | W.ED.GENAD ---
Discharge Plan Disposition Patient Disposition: Against Medical Advice Discharge Details Clinical Impression: Acute exacerbation of chronic low back pain Primary Care Provider: Clayton Becker ED Provider: Jalen Garcia Home Meds and New Rx's Prescriptions: New diazepam 5 mg tablet 5 mg PO QHS PRNQty: 3 0RF Continued nitroglycerin 0.4 % (w/w) ointment 1 inch LA BID Qty: 30 0RF rituximab 10 mg/mL concentrate 500 mg IV [id number] albuterol sulfate [ProAir HFA] 90 mcg/actuation HFA aerosol inhaler 2 puff IH DAILY Breztri Aerosphere 160-9-4.8 mcg/actuation HFA aerosol inhaler 2 inh inhalation BID Qty: 10.7 12RF duloxetine 40 mg capsule,delayed release(DR/EC) 40 mg PO DAILY Qty: 90 0RF pregabalin 75 mg capsule 75 mg PO BID Qty: 180 3RF Rx Instructions: Take 1 tablet twice daily by mouth as directed magnesium 250 mg tablet 250 mg PO DAILY psyllium Packet 1 packet PO BID meloxicam 15 mg tablet 15 mg PO DAILY Qty: 90 0RF trazodone 50 mg tablet 100 mg PO DAILY Qty: 90 4RF polyethylene glycol 3350 [Miralax] 17 gram powder in packet 17 g PO DAILY Qty: 100 12RF Rx Instructions: may need to go up to twice a day hydrocortisone 2.5 % cream 1 applic topical QID PRN (Reason: skin irritation) Qty: 30 12RF fluticasone propion-salmeterol [Advair HFA] 115-21 mcg/actuation HFA aerosol inhaler 2 puff inhalation BID Qty: 12 0RF clobetasol 0.05 % solution 1 applic topical QHS Qty: 50 0RF Stiolto Respimat 2.5-2.5 mcg/actuation mist 2 puff inhalation DAILY Qty: 4 12RF Asmanex HFA 200 mcg/actuation HFA aerosol inhaler 2 puff inhalation BID Qty: 13 12RF fluticasone propionate [Flonase Allergy Relief] 50 mcg/actuation spray,suspension 1 spray intranasal Q12H Qty: 16 12RF Rx Instructions: administer into each nostril lorazepam [Ativan] 1 mg tablet 1 mg PO DAILY PRN (Reason: anxiety) Qty: 20 0RF ondansetron 4 mg Tablet,Disintegrating 4 mg PO Q8H PRN PRNQty: 20 0RF cholecalciferol (vitamin D3) [Vitamin D3] 50 mcg (2,000 unit) Tablet 50 mcg PO DAILY Discharge Instructions Additional Instructions: You are seen in the emergency department for your low back pain. You are advised to stay in the emergency department so that we could monitor your symptoms for improvement. You left AGAINST MEDICAL ADVICE. Please return to emergency department if you lose control of your bowel or bladder, if you develop any fevers, or if you have any other concerns. Otherwise please follow-up with your primary care provider next week. You received a prescription for diazepam. Please do not take this with your lorazepam. HPI General Date/Time Provider Initiated Documentation: 11/01/23 17:46. HPI Narrative: MDM This is an uncomfortable appearing tachycardic but normothermic 38-year-old male with acute on chronic low back pain. I wanted the patient to lay down so that I could examine him but he declined. I also wanted to monitor him to ensure that his tachycardia resolved with oral analgesia. He declined. He reported that he had received relief in the past with oral opiates. I advised him that I was not willing to write him a prescription for oral opiates. 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 I was unable to assess for Babinski sign nor complete reflex exam to assess for hyperreflexia which could indicate upper motor neuron sign as patient was unwilling to sit on the stretcher. In the event that there is a component of spasm I wrote him for 3 diazepam tablets and counseled him on not taking lorazepam in conjunction with diazepam. He had no significant lower extremity weakness to suggest MS exacerbation. No chest pain to suggest ACS. I considered critical limb ischemia however the patient had a warm well-perfused left lower extremity so I did not feel that he required CT angiogram with runoffs. Furthermore, he had no history of peripheral vascular disease. No hyperreflexia and no loss of bowel or bladder control. Given no loss of bowel nor bladder control labs so I am not concerned for cauda equina nor did I feel that the patient required an emergent MRI. He had no history of trauma and no recent falls so as a result I was not suspicious for lumbar spinal fractures I did not feel that the patient required a CT scan. No pain out of proportion to suggest necrotizing soft tissue infection. No history of malignancy so my suspicion was low for pathological fracture. Patient is not anticoagulated to suggest increased risk for spinal epidural hematoma. Furthermore patient has not recently had any neurosurgical procedures. No fevers nor history of IV drug user so I was not suspicious for spinal epidural abscess. No rash to back to suggest zoster. No shortness of breath doubt pneumothorax. No dysuria no frequency doubt UTI. No nausea no vomiting no abdominal pain so doubt appendicitis. I again asked patient to lie down so that we could monitor him and ensure his symptoms were improving. Per chart review patient has had excursions of tachycardia in the past but never as high as 148 bpm. He requested discharge and signed out AGAINST MEDICAL ADVICE. 1. I explained the current situation and condition to the patient. 2. I explained the recommended treatment for this condition -monitoring to ensure resolution of tachycardia. 3. I explained the risk of not having the recommended treatment -worsening tachycardia and syncope 4. The patient understands this information has no questions, and repeated back this information. 5. The patient states that they need to leave and will follow-up with her primary care provider 6. Mental status is lucid and the patient has decision-making capacity. 7. Patient is withdrawing his consent for medical care Chronic conditions affecting the care of the patient: Chronic back pain multiple sclerosis History obtained from an outside historian: Patient's External record review: [facility] [place] Diagnostic interpretations performed by me: Per my independent interpretation EKG shows: Sinus tachycardia rate of 148 bpm. Left axis deviation no signs of LVH based on voltage criteria. Poor R wave progression.? V2 V3 reversal. No ST segment abnormalities. No T wave versions. Compared to prior dated last year sinus tachycardia is new. ]Medications: Oral morphine Social determinants of health affecting disposition: N/A Management discussed with: N/A Treatment/interventions considered: N/A Response to therapies provided: N/A HPI This is a 38-year-old male with history of multiple sclerosis and low back pain arrived to the emergency department with his via private vehicle in the setting of acute on chronic low back pain. Patient reports that he has been dealing with low back pain for the past approximately 4 years. He reports that he exacerbated his back pain this morning attempting to sleep blocks. Patient reports history of herniated disks. He has had no fevers. He denies loss of bowel and bladder control. He has had no surgeries to his back. He is not anticoagulated. Patient does not feel that his symptoms represent an exacerbation of his multiple sclerosis as he does not feel weak. He has tried methocarbamol acetaminophen meloxicam and his home lorazepam. He is also tried ice heat and Lidoderm patches. He denies abdominal pain nausea vomiting chest pain and shortness of breath. He rarely smokes marijuana denies routine tobacco IV drug use. No routine ethanol. Exam General: Uncomfortable-appearing in no acute distress speaking in complete sentences. Standing holding large wooden staff. Head: Normocephalic, atraumatic. Eye: Extraocular eye movements intact. No conjunctival injection. No scleral icterus. Ear, nose, mouth, throat: Grossly normal inspection. Normal voice, handling secretions normally. Neck: Trachea midline. Cardiovascular: Well-perfused distal extremities. Rapid regular rate. Respiratory: Nonlabored respiration. Clear lungs bilaterally. Gastrointestinal: Nondistended abdomen. Back: No midline thoracic nor lumbar spinal tenderness. Left paraspinal lumbar tenderness. No rash to back. Musculoskeletal: Left foot warm well-perfused 2+ left PT DP pulses. 5 out of 5 strength left dorsi and plantarflexion. Patient would not sit so I was unable to obtain complete a Babinski test nor assess for hyperreflexia. Skin: Normal for age and race, grossly normal temperature and turgor. No acute rash. Neurologic: Alert and appropriate, no apparent acute deficits. Psychiatric: Mood and manner are appropriate. Grooming and personal hygiene are appropriate. Related Data Home Medications Medication Instructions Recorded Confirmed ondansetron 4 mg disintegrating 4 mg PO Q8H PRN PRN #20 tabs 03/05/23 10/24/23 tablet cholecalciferol (vitamin D3) 50 50 mcg PO DAILY 03/20/23 10/24/23 mcg (2,000 unit) tablet (Vitamin D3) nitroglycerin 0.4 % (w/w) rectal 1 inch LA BID #30 grams 06/21/23 10/24/23 ointment rituximab 10 mg/mL 500 mg IV [id number] 06/21/23 10/24/23 concentrate,intravenous trazodone 50 mg tablet 100 mg (2 x 50 mg) PO DAILY #90 07/03/23 10/24/23 tabs albuterol sulfate 90 mcg/actuation 2 puff inhalation DAILY shortness 07/16/23 10/24/23 aerosol inhaler (ProAir HFA) of breath or wheezing magnesium 250 mg tablet 250 mg PO DAILY 07/23/23 10/24/23 psyllium 1 packet PO BID 07/23/23 10/24/23 polyethylene glycol 3350 17 gram 17 g PO DAILY #100 ea 08/01/23 10/24/23 oral powder packet (Miralax) hydrocortisone 2.5 % topical cream 1 applic topical QID PRN skin 08/15/23 10/24/23 irritation #30 grams fluticasone propionate 115 2 puff inhalation BID #12 grams 08/20/23 10/24/23 mcg-salmeterol 21 mcg/actuation HFA inhaler (Advair HFA) meloxicam 15 mg tablet 15 mg PO DAILY #90 tabs 09/02/23 10/24/23 budesonide 160 mcg-glycopyr 9 2 inh inhalation BID #10.7 grams 09/16/23 10/24/23 mcg-formot 4.8 mcg/actuation HFA inhaler (Breztri Aerosphere) clobetasol 0.05 % scalp solution 1 applic topical QHS #50 mL 09/23/23 10/24/23 mometasone 200 mcg/actuation HFA 2 puff inhalation BID #13 grams 09/26/23 10/24/23 aerosol inhaler (Asmanex HFA) tiotropium 2.5 mcg-olodaterol 2.5 2 puff inhalation DAILY #4 grams 09/26/23 10/24/23 mcg/actuation mist for inhalation (Stiolto Respimat) fluticasone propionate 50 1 spray intranasal Q12H #16 grams 10/23/23 10/24/23 mcg/actuation nasal spray,suspension (Flonase Allergy Relief) duloxetine 40 mg capsule,delayed 40 mg PO DAILY #90 caps 10/24/23 10/24/23 release pregabalin 75 mg capsule 75 mg PO BID Radiculopathy #180 10/24/23 10/24/23 caps lorazepam 1 mg tablet (Ativan) 1 mg PO DAILY PRN anxiety #20 tabs 03/29/24 diazepam 5 mg tablet 5 mg PO QHS PRN #3 tabs 11/01/23 Previous Rx's Medication Instructions Recorded ondansetron 4 mg disintegrating 4 mg PO Q8H PRN PRN #20 tabs 03/05/23 tablet nitroglycerin 0.4 % (w/w) rectal 1 inch LA BID #30 grams 06/21/23 ointment trazodone 50 mg tablet 100 mg (2 x 50 mg) PO DAILY #90 07/03/23 tabs polyethylene glycol 3350 17 gram 17 g PO DAILY #100 ea 08/01/23 oral powder packet (Miralax) hydrocortisone 2.5 % topical cream 1 applic topical QID PRN skin 08/15/23 irritation #30 grams fluticasone propionate 115 2 puff inhalation BID #12 grams 08/20/23 mcg-salmeterol 21 mcg/actuation HFA inhaler (Advair HFA) meloxicam 15 mg tablet 15 mg PO DAILY #90 tabs 09/02/23 budesonide 160 mcg-glycopyr 9 2 inh inhalation BID #10.7 grams 09/16/23 mcg-formot 4.8 mcg/actuation HFA inhaler (Breztri Aerosphere) clobetasol 0.05 % scalp solution 1 applic topical QHS #50 mL 09/23/23 mometasone 200 mcg/actuation HFA 2 puff inhalation BID #13 grams 09/26/23 aerosol inhaler (Asmanex HFA) tiotropium 2.5 mcg-olodaterol 2.5 2 puff inhalation DAILY #4 grams 09/26/23 mcg/actuation mist for inhalation (Stiolto Respimat) fluticasone propionate 50 1 spray intranasal Q12H #16 grams 10/23/23 mcg/actuation nasal spray,suspension (Flonase Allergy Relief) duloxetine 40 mg capsule,delayed 40 mg PO DAILY #90 caps 10/24/23 release pregabalin 75 mg capsule 75 mg PO BID Radiculopathy #180 10/24/23 caps lorazepam 1 mg tablet (Ativan) 1 mg PO DAILY PRN anxiety #20 tabs 10/25/23 diazepam 5 mg tablet 5 mg PO QHS PRN #3 tabs 11/01/23 Allergies Allergy/AdvReac Type Severity Reaction Status Date / Time buprenorphine HCl Allergy Intermediate vomiting Verified 10/24/23 11:22 [From Suboxone] hives diarrhea hallucination naloxone HCl [From Suboxone] Allergy Intermediate vomiting Verified 10/24/23 11:22 hives diarrhea hallucination sertraline Allergy Mild unknown Verified 10/24/23 11:22 shellfish derived Allergy Swelling/Ed Verified 10/24/23 11:22 miguel zolmitriptan [From Zomig] AdvReac Severe Severe Verified 10/24/23 11:22 headache Ring of fire around my head methylprednisolone AdvReac Intermediate emotional Verified 10/24/23 11:22 lability with high doses propranolol [From Inderal LA] AdvReac Intermediate insomnia Verified 10/24/23 11:22 Sulfa (Sulfonamide AdvReac Intermediate Nausea Verified 10/24/23 11:22 Antibiotics) sumatriptan [From Imitrex] AdvReac Intermediate Agitation Verified 10/24/23 11:22 theophylline [From Quibron] AdvReac Intermediate Agitation Verified 10/24/23 11:22 guaifenesin [From Quibron] AdvReac Unknown Other (See Verified 10/24/23 11:22 Comment) General MASOOD: 3 Medical Decision Making Quality:SDOH Health Related Social Needs: No Data to Display PFSH All Active Problems (Updated 11/01/23 @ 18:17 by Jalen Garcia MD) Acute exacerbation of chronic low back pain (Acute) Lower urinary tract symptoms (LUTS) (Acute) Asthma-COPD overlap syndrome (Acute) Lyme disease (Acute) COPD (chronic obstructive pulmonary disease) (Chronic) History of opioid abuse (Acute) Previously on Methadone. Urinary and fecal incontinence (Acute) Chronic pain (Chronic) Multiple generators (lumbar radiculopathy, MS) Multiple sclerosis, relapsing-remitting (Acute) Palliative care encounter (Acute) Arthralgia (Acute) Dyspnea (Acute) Erectile dysfunction (Acute) Chronic constipation (Acute) External hemorrhoid (Acute) x2 non thrombosed Lumbar radiculopathy (Acute) Lumbar spinal stenosis (Acute) Anal fissure (Acute) Depression (Chronic) Cyst of tunica albuginea testis (Acute) Lumbar disc herniation (Acute) Hypertension (Chronic) GERD (gastroesophageal reflux disease) (Chronic) Obesity, Class III, BMI 40-49.9 (morbid obesity) (Acute) Post traumatic stress disorder (Acute) Multiple sclerosis (Chronic) Adjustment disorder (Chronic) Anxiety and depression (Chronic) 06/18/23 Self reported. -hb Imbalance (Acute) Restless leg syndrome (Acute) ROCK (nonalcoholic steatohepatitis) (Acute) Spermatocele (Chronic) Right Obstructive sleep apnea (Chronic) Medical History Urinary retention Hemorrhoid Eczema Opiate abuse, episodic Remote history, on methadone x10 years Foot fracture Right Migraine Surgical History H/O hand surgery ~2007 At [facility]. Right hand ring and last finger per report. -hb Status post exam under anesthesia with hemorrhoid banding Performed on 07/04/[address] Reynolds. -hb S/P tonsillectomy 1994 Per patient. -hb History of colonoscopy (~07/04/20) Colonoscopy - MAC 2009- normal 07/04/20 - Family History Mother Colon cancer Depression Substance use disorder FH: mental illness Father Diabetes Heart disease Hypertension Adopted Hyperlipidemia Sister Depression FH: mental illness Other Crohn's colitis Social History Smoking/Tobacco Use Status: Former Tobacco Use tobacco type: cigarettes, cigars and e-cigarettes Quit Date: 04/28/22 Pack-years: 52 Tobacco: How many years used: 26 Smokeless tobacco user: chewing tobacco Quit status: has quit before Second Hand Exposure: Yes Smoking risk assessment performed?: Yes Alcohol Intake: current Alcohol Intake frequency: holidays/special occasions only Alcohol type: wine Drug use: Daily Substance use type: marijuana Adopted: No Caregiver/Support person: No Foster care: No Household members: significant other Housing: apartment Communication Needs: None Education Level: college (Bachelors degree) Do you need help understanding health information?: Often current occupation: none Pets and animals: Yes Pets and animals: cat(s) and dog(s) Sexually active: Yes Do you think of yourself as: straight/heterosexual Current gender identity: male What is your relationship status?: living with partner How often do you talk on the phone with friends or family?: once per week How often do you get together with friends or relatives?: once per week Do you belong to any clubs or organized social groups?: yes Panel score (0-1 are the most socially isolated patients): 2 What type of physical activity do you participate in: none Frequency: does not exercise Caitie/Restorationism: SATANIST Seatbelt use: always Helmet use: Yes Helmet use: always Drive intox 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 Yahir RN 07/10/23. Former smoker 2 ppd for 26yrs.
== END 2023-11-01 18:14 | disposition left against medical advice (07) ==
PROVIDERS: Emergency Provider Emergency Medicine; PCP Nurse Practitioner Family
DX: M54.50 Low back pain, unspecified (principal); G35 Multiple sclerosis; G89.29 Other chronic pain; Z53.29 Procedure and treatment not carried out because of patient's decision for other reasons
CPT/HCPCS: 93005; 99283; 93010

== ENCOUNTER 2023-11-14 04:42 | Outpatient (RCR) | payer MEDICAID, SELFPAY ==
[2023-11-14] VITALS (7 sets, daily range): BP systolic 113–143; BP diastolic 73–89; PULSE 71–94; RESP 18–20; TEMP 36.3–37.3; O2SAT 93–97
[2023-11-14] MEDS: Normal Saline Flush 10 ML SYR IVP (08:30)
[2023-11-14] MEDS: Dexamethasone 10 MG/ML VIAL 20 MG IV (08:39)
[2023-11-14] MEDS: riTUXimab-PVVR 500 MG in Normal Saline 200 ML 25 MG IVPB (08:51)
[2023-11-14 08:52] LABS: Abs Immature Grans 0.01 10^3/uL (0.0-0.06); Absolute Basophil Count 0.08 10^3/uL (0.0-0.2); Absolute Eosinophil Count 0.29 10^3/uL (0.0-0.7); Absolute Lymphocyte Count 1.94 10^3/uL (1.2-3.4); Absolute Monocyte Count 0.73 10^3/uL (0.1-0.8); Absolute Neutrophil Count 3.14 10^3/uL (1.2-6.7); Basophils % 1.3; Eosinophils % 4.7; HCT 43.8 % (40.0-50.0); HGB 15.2 g/dL (13.5-17.5); Immature Grans % 0.2; Lymphocytes % 31.3; MCH 30.1 pg (27.0-33.0); MCHC 34.7 % (32.0-36.0); MCV 87 fL (80-95); MPV 9.9 fL (8.0-11.0); Monocytes % 11.8; Neutrophils % 50.7; Platelet Count 299 10^3/uL (130-400); RBC 5.05 10^6/uL (4.36-5.78); RDW 13.2 % (11.8-14.1); RDW-SD 41.5 fL; WBC 6.19 10^3/uL (4.4-10.8)
[2023-11-14 09:03] LABS: ALT 27 U/L (16-63); AST 16 U/L (15-37); Albumin 3.8 g/dL (3.4-5.0); Alkaline Phosphatase 50 U/L (46-116); Anion Gap 8.4 mmol/L (3-11); BUN 14 mg/dL (7-18); Bilirubin, Total 0.6 mg/dL (0.2-1.0); CO2 30.6 mmol/L (21.0-32.0); Calcium 8.8 mg/dL (8.5-10.1); Chloride 102 mmol/L (98-107); Estimated GFR 99.41 (mL/min/1.73m2); Glucose 125 mg/dL (74-106); Potassium 3.7 mmol/L (3.5-5.1); Sodium 141 mmol/L (136-145); Total Protein 7.1 g/dL (6.4-8.2)
[2023-11-15 09:55] LABS: IgA 234 mg/dL (85-499); IgG 907 mg/dL (610-1616); IgM 138 mg/dL (35-242)
[2023-11-15 16:14] LABS: CD19 2 % (6-24); CD20 2 % (6-24)
== END 2023-11-26 23:59 | disposition home or self-care (01) ==
LOC: INF 04:42
PROVIDERS: PCP Nurse Practitioner Family; Visit Provider Psychiatry & Neurology Neurology
DX: G35 Multiple sclerosis (principal)
CPT/HCPCS: 36415; 80053; 82784; 88184; 88185; 96365; 96366; 96374; 96375; 85025; J1100; Q5119

== ENCOUNTER 2024-02-11 15:50 | Outpatient (CLI) | payer MEDICAID, SELFPAY ==
[2024-02-11 13:37] LABS: ESR 1 mm/hr (0-15)
[2024-02-11 14:25] LABS: C-Reactive Protein < 0.50 mg/dL (<or=0.5)
== END 2024-02-11 15:51 | disposition home or self-care (01) ==
LOC: LBO 15:50
PROVIDERS: PCP Nurse Practitioner Family; Visit Provider Nurse Practitioner Family
DX: G35 Multiple sclerosis (principal)
CPT/HCPCS: 36415; 85652; 86140

== ENCOUNTER 2024-03-13 00:34 | Outpatient (CLI) | payer MEDICAID, SELFPAY ==
--- NOTE | 2024-03-13 06:30 | DI.MRI_ITS ---
Exam(s) MR BRAIN WO/W EXAM: MR BRAIN WO/W CLINICAL HISTORY: MS, clinically stable,G35 TECHNIQUE: Multiplanar multisequence MRI of the brain was performed. CONTRAST MATERIAL: IV Contrast: 20 mL of Dotarem contrast administered. COMPARISON: MR MR BRAIN WO/W from 03/15/2023 FINDINGS: VENTRICLES AND EXTRA AXIAL SPACES: Normal in size and morphology for the patient's age. HEMORRHAGE: None. CEREBRAL PARENCHYMA: No focus of restricted diffusion to suggest acute infarct. No space-occupying le diamond identified. There again seen several foci of hyperintense signal in the white matter on the FLAI R and T2 weighted images in the periventricular region. There has been a decrease in size of a few o f the lesions. No new lesions are seen. No increase in size of the lesions is seen. There is no en hancement of the lesions. MIDLINE SHIFT: None. BRAINSTEM/CEREBELLUM: Normal. CALVARIUM: Normal. ENHANCEMENT: No suspicious enhancement identified. VISUALIZED PARANASAL SINUSES/MASTOIDS: Clear. [place]: Normal flow void. PITUITARY GLAND: Unremarkable. OTHER FINDINGS: IMPRESSION: Multiple white matter lesions in the brain. They show no enhancement or increase in size. No new le sions are seen. There does appear to be a decrease in size of a few of the lesions since the prior e xamination from 03/15/2023. DATA REPOSITORY:
[2024-03-13] MEDS: Normal Saline Flush 10 ML SYR IVP (10:40)
[2024-03-13] MEDS: Gadoterate meglumine 20 ML VIAL IVP (10:40)
== END 2024-03-13 00:54 ==
LOC: DI 00:34
PROVIDERS: PCP Nurse Practitioner Family; Visit Provider Psychiatry & Neurology Neurology
DX: G35 Multiple sclerosis (principal)
CPT/HCPCS: 70553

== ENCOUNTER 2024-04-28 03:05 | Outpatient (RCR) | payer MEDICAID, SELFPAY ==
[2024-04-28] VITALS (7 sets, daily range): BP systolic 125–146; BP diastolic 62–89; PULSE 98–117; RESP 16–19; TEMP 36.3–37.2; O2SAT 95–99
[2024-04-28] MEDS: Dexamethasone 10 MG/ML VIAL 20 MG IV (10:54)
[2024-04-28] MEDS: riTUXimab-PVVR 500 MG in Normal Saline 200 ML 25 MG IVPB (11:06)
[2024-04-28] MEDS: Normal Saline Flush 10 ML SYR IVP ×2 (11:06→14:44)
[2024-04-28 11:12] LABS: Abs Immature Grans 0.04 10^3/uL (0.0-0.06); Absolute Eosinophil Count 0.97 10^3/uL (0.0-0.7); Absolute Lymphocyte Count 1.73 10^3/uL (1.2-3.4); Absolute Monocyte Count 0.64 10^3/uL (0.1-0.8); Basophils % 1.3 %; Eosinophils % 12.6 %; HCT 44.4 % (40.0-50.0); HGB 15.2 g/dL (13.5-17.5); Immature Grans % 0.5 %; Lymphocytes % 22.5 %; MCH 30.9 pg (27.0-33.0); MCHC 34.2 % (32.0-36.0); MCV 90 fL (80-95); MPV 9.6 fL (8.0-11.0); Monocytes % 8.3 %; Neutrophils % 54.8 %; Platelet Count 294 10^3/uL (130-400); RBC 4.92 10^6/uL (4.36-5.78); RDW 13.2 % (11.8-14.1); RDW-SD 43.8 fL; WBC 7.68 10^3/uL (4.4-10.8)
[2024-04-28 11:41] LABS: ALT 50 U/L (16-63); AST 26 U/L (15-37); Albumin 3.7 g/dL (3.4-5.0); Alkaline Phosphatase 59 U/L (46-116); Anion Gap 7.8 mmol/L (3-11); BUN 10 mg/dL (7-18); Bilirubin, Total 0.48 mg/dL (0.2-1.0); CO2 29.2 mmol/L (21.0-32.0); CREATININE 0.9 mg/dL (0.70-1.30); Calcium 9.1 mg/dL (8.5-10.1); Chloride 101 mmol/L (98-107); Estimated GFR 112.11 (mL/min/1.73m2); Glucose 133 mg/dL (74-106); Potassium 3.7 mmol/L (3.5-5.1); Sodium 138 mmol/L (136-145); Total Protein 7.1 g/dL (6.4-8.2)
[2024-04-29 11:17] LABS: IgA 256 mg/dL (85-499); IgG 799 mg/dL (610-1616); IgM 88 mg/dL (35-242)
[2024-04-29 12:29] LABS: CD19 <1 % (6-24); CD20 <1 % (6-24)
== END 2024-05-28 23:59 | disposition home or self-care (01) ==
LOC: INF 03:05
PROVIDERS: PCP Nurse Practitioner Family; Visit Provider Psychiatry & Neurology Neurology
DX: G35 Multiple sclerosis (principal)
CPT/HCPCS: 80053; 82784; 88184; 88185; 96365; 96366; 85025; J1100; Q5119

== ENCOUNTER 2024-05-05 14:33 | Outpatient (REF) | payer MEDICAID, SELFPAY | END 2024-05-05 14:34 | disposition home or self-care (01) | LOC: LBN 14:33 | PROVIDERS: PCP Nurse Practitioner Family; Visit Provider Nurse Practitioner Family | DX: L02.211 Cutaneous abscess of abdominal wall (principal) | CPT/HCPCS: 87070; 87205 ==

== ENCOUNTER 2024-11-10 03:32 | Outpatient (RCR) | payer MEDICAID, SELFPAY ==
[2024-11-10] VITALS (7 sets, daily range): BP systolic 98–133; BP diastolic 58–76; PULSE 63–94; RESP 17–18; TEMP 36.1–36.4; O2SAT 94–100
[2024-11-10] MEDS: Normal Saline Flush 5 ML SYR IVP (10:27)
[2024-11-10] MEDS: Acetaminophen 325 MG TAB 650 MG PO (10:27)
[2024-11-10] MEDS: Dexamethasone 4 MG TAB 20 MG PO (10:27)
[2024-11-10] MEDS: riTUXimab-PVVR 500 MG in Normal Saline 200 ML 62.5 MG IVPB (10:33)
[2024-11-10 11:02] LABS: Abs Immature Grans 0.01 10^3/uL (0.0-0.06); Absolute Basophil Count 0.05 10^3/uL (0.0-0.2); Absolute Eosinophil Count 0.23 10^3/uL (0.0-0.7); Absolute Lymphocyte Count 1.27 10^3/uL (1.2-3.4); Absolute Monocyte Count 0.45 10^3/uL (0.1-0.8); Absolute Neutrophil Count 3.88 10^3/uL (1.2-6.7); Basophils % 0.8 %; Eosinophils % 3.9 %; HCT 48.3 % (40.0-50.0); HGB 16.5 g/dL (13.5-17.5); Immature Grans % 0.2 %; Lymphocytes % 21.6 %; MCH 30.3 pg (27.0-33.0); MCHC 34.2 % (32.0-36.0); MCV 89 fL (80-95); MPV 9.6 fL (8.0-11.0); Monocytes % 7.6 %; Neutrophils % 65.9 %; Platelet Count 313 10^3/uL (130-400); RBC 5.44 10^6/uL (4.36-5.78); RDW 13.1 % (11.8-14.1); RDW-SD 42.4 fL; WBC 5.89 10^3/uL (4.4-10.8)
[2024-11-10 11:19] LABS: ALT 43 U/L (16-63); AST 25 U/L (15-37); Albumin 3.9 g/dL (3.4-5.0); Alkaline Phosphatase 62 U/L (46-116); Anion Gap 6.6 mmol/L (3-11); BUN 11 mg/dL (7-18); CO2 29.4 mmol/L (21.0-32.0); Calcium 9.4 mg/dL (8.5-10.1); Chloride 104 mmol/L (98-107); Glucose 117 mg/dL (74-106); Potassium 3.9 mmol/L (3.5-5.1); Sodium 140 mmol/L (136-145); Total Protein 7.6 g/dL (6.4-8.2)
[2024-11-11 09:11] LABS: IgA 275 mg/dL (85-499); IgG 839 mg/dL (610-1616); IgM 96 mg/dL (35-242)
[2024-11-11 15:56] LABS: CD19 <1 % (6-24); CD20 <1 % (6-24)
== END 2024-11-25 23:59 | disposition home or self-care (01) ==
LOC: INF 03:32
PROVIDERS: PCP Nurse Practitioner Family; Visit Provider Psychiatry & Neurology Neurology
DX: G35 Multiple sclerosis (principal)
CPT/HCPCS: 36415; 80053; 82784; 88184; 88185; 96365; 96366; 85025; J8540; Q5119

== ENCOUNTER 2025-03-10 01:38 | Outpatient (CLI) | payer MEDICAID, SELFPAY ==
--- NOTE | 2025-03-10 07:30 | DI.MRI_ITS ---
Exam(s) MR BRAIN WO EXAM: MR BRAIN WO CLINICAL HISTORY: multiple sclerosis; clinically stable,g35 TECHNIQUE: Multiplanar multisequence MRI of the brain was performed. COMPARISON: MR MR BRAIN WO/W from 03/04/2023 MR MR BRAIN WO/W from 03/13/2024 FINDINGS: VENTRICLES AND EXTRA AXIAL SPACES: Normal in size and morphology for the patient's age. MIDLINE SHIFT: None. CEREBRAL PARENCHYMA: No focus of restricted diffusion to suggest acute infarct. No space-occupying lesion identified. There are multiple white matter foci seen on the FLAIR and T2 weighted images. There are no new lesions present. There is decreased conspicuity of a lesion superior to the right lateral ventricle since the prior examination. HEMORRHAGE: None. BRAINSTEM/CEREBELLUM: Normal. CALVARIUM: Normal. VISUALIZED PARANASAL SINUSES/MASTOIDS:There is mild mucosal thickening in the left maxillary sinus and several left ethmoid air cells. The remaining visualized paranasal sinuses and mastoid air cells are clear. [place]: Normal flow void. PITUITARY GLAND: Unremarkable. OTHER FINDINGS: None. IMPRESSION: 1. No new white matter lesions since 03/13/2024. 2. Decrease conspicuity of a white matter lesion superior to the right lateral ventricle. DATA REPOSITORY:
== END 2025-03-10 01:58 ==
LOC: DI 01:38
PROVIDERS: PCP Nurse Practitioner Family; Visit Provider Psychiatry & Neurology Neurology
DX: G35 Multiple sclerosis (principal)
CPT/HCPCS: 70551

== ENCOUNTER 2025-05-26 02:25 | Outpatient (RCR) | payer MEDICAID, SELFPAY ==
[2025-05-26] MEDS: Dexamethasone 4 MG TAB 20 MG PO (08:29)
[2025-05-26] MEDS: Acetaminophen 325 MG TAB 650 MG PO (08:30)
[2025-05-26] MEDS: Normal Saline Flush 10 ML SYR IVP (08:52)
[2025-05-26 09:25] VITALS: BP 137/84; PULSE 75; RESP 18; TEMP 36.7; O2SAT 97
[2025-05-26 09:43] LABS: Abs Immature Grans 0.02 10^3/uL (0.0-0.06); HCT 45.9 % (40.0-50.0); HGB 15.4 g/dL (13.5-17.5); Immature Grans % 0.3 %; MCH 30.0 pg (27.0-33.0); MCHC 33.6 % (32.0-36.0); MCV 89 fL (80-95); MPV 9.9 fL (8.0-11.0); Platelet Count 287 10^3/uL (130-400); RBC 5.14 10^6/uL (4.36-5.78); RDW 12.8 % (11.8-14.1); RDW-SD 41.9 fL; WBC 7.84 10^3/uL (4.4-10.8)
[2025-05-26 09:55] VITALS: BP 132/86; PULSE 82; RESP 18; TEMP 37; O2SAT 99
[2025-05-26 10:12] LABS: ALT 36 U/L (16-63); AST 20 U/L (15-37); Albumin 4.0 g/dL (3.4-5.0); Alkaline Phosphatase 64 U/L (46-116); Anion Gap 10.5 mmol/L (3-11); BUN 9 mg/dL (7-18); Bilirubin, Total 0.7 mg/dL (0.2-1.0); CO2 28.5 mmol/L (21.0-32.0); Calcium 9.1 mg/dL (8.5-10.1); Chloride 102 mmol/L (98-107); Glucose 107 mg/dL (74-106); Potassium 4.5 mmol/L (3.5-5.1); Sodium 141 mmol/L (136-145); Total Protein 7.3 g/dL (6.4-8.2)
[2025-05-26 10:25] VITALS: BP 126/80; PULSE 82; RESP 18; TEMP 37; O2SAT 96
[2025-05-26 10:55] VITALS: BP 124/73; PULSE 82; RESP 18; TEMP 37; O2SAT 96
[2025-05-27 13:38] LABS: CD19 <1 % (6-24); CD20 <1 % (6-24)
== END 2025-05-28 23:59 | disposition home or self-care (01) ==
LOC: INF 02:25
PROVIDERS: PCP Nurse Practitioner Family; Visit Provider Psychiatry & Neurology Neurology
DX: G35.D Multiple sclerosis, unspecified (principal)
CPT/HCPCS: 36415; 80053; 82784; 88184; 88185; 96365; 96366; 85025; J8540; J9312